=== PATIENT | male | born 1980 | race Two or more races ===

== ENCOUNTER 2024-02-20 13:33 | Inpatient (IN) | payer OTHER ==
[~2024-02-20] VITALS: Ht 172.7 cm; Wt 73.7 kg
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
[2024-02-20] MEDS ORDERED: VANCOMYCIN PER PHARMACY 0 MG IV SCH (15:15)
[2024-02-20 15:31] LABS: Hemoglobin 14.1 g/dL (13.5-17.5); Platelet Count (auto) 316 10^3/uL (140-450)
[2024-02-20 15:32] LABS: Hematocrit 42.5 % (41.0-53.0); Mean Corpuscular Hemoglobin 29.1 pg (28.0-32.0); Mean Corpuscular Volume 88.2 fL (80.0-100.0); Red Blood Cells 4.82 10^6/uL (4.5-5.90); Red Cell Distribution Width 15.4 % (11.8-14.3)
[2024-02-20 15:40] LABS: Band Neutrophils % (manual) 0; Basophils % (manual) 0 (0.0-2.0); Blast Cells 0; Eosinophils % (manual) 0 (0-7); Metamyelocytes % 0; Myelocytes % 0; Promyelocytes % 0; Reactive Lymphocytes 0; White Blood Cell 33.2 10^3/uL (4.4-10.8)
[2024-02-20] MEDS: IOHEXOL 300 MG/ML 100ML BOTTLE IJ ONE (15:49)
[2024-02-20 15:57] LABS: Alanine Aminotransferase 156 U/L (7-40); Albumin 3.3 g/dL (3.2-4.8); Alkaline Phosphatase 206 U/L (46-116); Anion Gap 10 (5-15); Aspartate Aminotransferase 87 U/L (13-40); BUN/Creatinine Ratio 24.6 (10.0-20.0); Blood Urea Nitrogen 69 mg/dL (9-23); Calcium 8.4 mg/dL (8.7-10.4); Carbon Dioxide 25 mmol/L (20-31); Chloride 101 mmol/L (98-107); Glucose 124 mg/dL (74-106); Potassium 4.2 mmol/L (3.5-5.1); Sodium 136 mmol/L (136-145)
[2024-02-20 15:58] LABS: Bilirubin, Total 0.6 mg/dL (0.2-1.0); Total Protein 6.3 g/dL (5.7-8.2)
[2024-02-20 16:06] LABS: CRP High Sensitivity > 20.00 mg/dL (<1.0)
[2024-02-20 16:44] LABS: Lymphocytes % (manual) 3 (10.0-50.0); Monocytes % (manual) 3 (0-12); Platelet Estimate Adequate
[2024-02-20 16:46] LABS: RBC Morphology Normal
[2024-02-20] MEDS: VANCOMYCIN 1GM/250ML KIT 200 ML IV ONE (16:47)
[2024-02-20] MEDS: SODIUM CHLORIDE 0.9% 1,000 ML IV ONE ×2 (16:47→22:13)
[2024-02-20] MEDS: PIPERACILLIN-TAZOB 3.375GM 100 ML IV ONE (16:47)
--- NOTE | 2024-02-20 17:18 | DVH ---
Exam: CT CT AB PEL WO CON-NO ORAL OR IV History: BUTTOCK WOUND Comparison Study: None TECHNIQUE: Multidetector CT of the abdomen and pelvis was performed from lung bases to pubic symphysi s. Imaging was performed without IV contrast. Axial, coronal, and sagittal multiplanar reformats were obtained from the axial data set by the technologist. RADIATION DOSE: DLP 616.78 mGy.cm; CTDI vol 10.83 mGy. Findings: Limited evaluation given noncontrast technique. Lungs: The lung bases are clear. Heart: The visualized heart is unremarkable. No cardiomegaly or pericardial effusion. Liver: Unremarkable. Gallbladder: Unremarkable. Spleen: Unremarkable Pancreas: Unremarkable Adrenals: Unremarkable Kidneys: Unremarkable GI tract: Post surgical changes of the bowel. : Unremarkable. Vasculature: Unremarkable Lymphadenopathy: Absent Peritoneum: No ascites Musculoskeletal: Marked degenerative changes and heterotopic ossification of the right hip. Soft tissues: Two fluid collections in the right gluteal region, are incompletely evaluated given non contrast technique, measuring 8.1 x 4.5 cm and 6.0 x 2.6 cm. No evidence of subcutaneous emphysema. S acral decubitus ulcer. Impression: 1. Limited evaluation given noncontrast technique. 2. No acute abdominopelvic abnormalities. 3. Two fluid collections in the right gluteal region without emphysema. 4. Sacral decubitus ulcer.
[2024-02-20 17:32] VITALS: PULSE 125; RESP 19; O2SAT 100
[2024-02-20 18:34] LABS: Erythrocyte Sedimentation Rate 62 mm/hr (0-20)
[2024-02-20 19:27] VITALS: PULSE 109; RESP 17; O2SAT 99
[2024-02-20] MEDS ORDERED: NITROGLYCERIN 0.4 MG SL TAB SL PRN (21:45)
[2024-02-20] MEDS ORDERED: DOCUSATE SOD 100 MG CAP PO PRN (21:45)
[2024-02-20] MEDS ORDERED: MORPHINE SULFATE INJ 2 MG/ml SYRG IV PRN ×2 (21:45)
[2024-02-20] MEDS ORDERED: ONDANSETRON HCL 4 MG/2 ML VIAL IV PRN (21:45)
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
[2024-02-20] MEDS: ASCORBIC ACID 500 MG TAB PO SCH (22:30)
[2024-02-20] MEDS: PIPERACILLIN-TAZOB 3.375GM 100 ML IV SCH (22:30)
[2024-02-20] MEDS: SODIUM CHLORIDE 0.9% 1,000 ML IV SCH (23:00)
[2024-02-21 04:50] LABS: Hematocrit 32.6 % (41.0-53.0); Hemoglobin 10.9 g/dL (13.5-17.5); Mean Corpuscular Hgb Conc. 33.4 g/dL (32.0-36.0); Mean Corpuscular Volume 86.8 fL (80.0-100.0); Platelet Count (auto) 311 10^3/uL (140-450); Red Blood Cells 3.76 10^6/uL (4.5-5.90); White Blood Cell 25.3 10^3/uL (4.4-10.8)
[2024-02-21 04:58] LABS: Band Neutrophils % (manual) 0; Basophils % (manual) 0 (0.0-2.0); Blast Cells 0; Metamyelocytes % 0; Myelocytes % 0; Promyelocytes % 0; Reactive Lymphocytes 0
[2024-02-21 05:10] LABS: Alanine Aminotransferase 106 U/L (7-40); Albumin 2.7 g/dL (3.2-4.8); Alkaline Phosphatase 170 U/L (46-116); Anion Gap 10 (5-15); Aspartate Aminotransferase 58 U/L (13-40); Bilirubin, Total 0.6 mg/dL (0.2-1.0); Calcium 7.9 mg/dL (8.7-10.4); Carbon Dioxide 23 mmol/L (20-31); Chloride 106 mmol/L (98-107); Glucose 139 mg/dL (74-106); Potassium 3.1 mmol/L (3.5-5.1); Sodium 139 mmol/L (136-145); Total Protein 5.4 g/dL (5.7-8.2)
[2024-02-21 05:21] LABS: Blood Urea Nitrogen 48 mg/dL (9-23)
[2024-02-21 07:22] LABS: Eosinophils % (manual) 1 (0-7); Lymphocytes % (manual) 3 (10.0-50.0); Monocytes % (manual) 2 (0-12); Platelet Estimate Adequate
[2024-02-21 07:45] VITALS: RESP 16; O2SAT 99
[2024-02-21] MEDS: POTASSIUM CHL 20 Meq TABLET PO ONE ×2 (08:57→13:19)
[2024-02-21 09:41] LABS: Magnesium 1.7 mg/dL (1.6-2.6)
[2024-02-21 09:42] LABS: Phosphorus 3.3 mg/dL (2.4-5.1)
--- NOTE | 2024-02-21 10:27 | DVH ---
CHEST RADIOGRAPH Indication: PVC Technique: Single frontal view of the chest was obtained Comparison: None FINDINGS: Lines and Tubes: None Lungs: No focal consolidation. Pleura: No effusion. No pneumothorax. Cardiomediastinal contours: Unremarkable Bones: Chronic right-sided rib fractures. IMPRESSION: No acute cardiopulmonary disease.
--- NOTE | 2024-02-21 11:00 | DVHPN2 ---
Progress Note - Dictate Date Seen: Feb 21, 2024 Medical Necessity Reason Pt with a Central, PICC or Fol: No vital signs Vital Sign Date Time Temp Pulse Resp B/P (MAP) Pulse Ox O2 Delivery O2 Flow Rate FiO2 02/21/24 09:00 105 16 111/54 (73) 97 02/21/24 07:45 Room Air* 0 21 02/21/24 07:00 100.0 100.0 Total Intake and Output 02/20/24 02/20/24 02/21/24 15:00 23:00 07:00 Intake Total 1680 ml 1015 ml Output Total 1010 ml Balance 1680 ml 5 ml medications Current Medications Medications Dose Ordered Sig/Jacquelyn Route Start Time Stop Time Status Last Admin Dose Admin Vancomycin HCl 0 ml @ 0 mls/hr UD IV 02/20/24 15:15 Sodium Chloride 1,000 ml @ 120 mls/hr Q8H20M IV 02/20/24 21:45 02/21/24 06:05 120 MLS/HR Acetaminophen 325 mg Q4HP PRN PO 02/20/24 21:45 Acetaminophen/ Hydrocodone Bitart 1 tab Q4HP PRN PO 02/20/24 21:45 Ondansetron HCl 4 mg Q4HP PRN IV 02/20/24 21:45 Docusate Sodium 100 mg BIDPRN PRN PO 02/20/24 21:45 Zinc Sulfate 220 mg DAILY PO 02/21/24 10:00 Ascorbic Acid 500 mg BID PO 02/20/24 22:00 02/20/24 22:30 500 MG Multivitamins 1 tab DAILY PO 02/21/24 10:00 Morphine Sulfate 2 mg Q4HPRN PRN IV 02/20/24 21:45 Nitroglycerin 0.4 mg Q5MINP PRN SL 02/20/24 21:45 Morphine Sulfate 2 mg Q30M PRN IV 02/20/24 21:45 Piperacillin Sod/ Tazobactam Sod 100 ml @ 25 mls/hr Q12HR IV 02/20/24 22:00 02/20/24 22:30 25 MLS/HR objective General Appearance: alert, no distress HEENT: EOMI, PERRLA, normal external inspect of ears, no icterus, no nasal drainage Neck: no carotid bruit, no jugular venous distention (JVD), no lymphadenopathy Chest: normal thorax Respiratory: clear to auscultation, normal air movement Cardiovascular: regular rate and rhythm, no diastolic murmur, no jugular venous distention (JVD), no rub, no systolic murmur Abdominal: soft, no hepatomegaly, no mass, no splenomegaly, no tenderness Genitourinary: grossly normal external Musculoskeletal: no joint tenderness, no swelling Extremities: normal pulses, no calf tenderness, no clubbing, no cyanosis, no edema Skin: no bruising, no jaundice, no rash Neurological: alert, No focal deficit laboratory and microbiology Laboratory Tests 02/21/24 04:10 Test 02/21/24 04:10 Range/Units Serum Glucose 139 H 74-106 mg/dL Problem List 1. Sepsis IV abx, ID Consult 2. Acute renal Failure Nephrology Consult, Monitoring 3. Elevated Liver Enzyme medication, monitoring 4. Decubitis ulcer to Coccyx Medication, monitoring 5. Homelessness [employer]ation [employer] Integrator Consult Assessment/Plan Subjective: Patient is awake and alert but lethargic today. Objective: Patient was recently medicated for pain. Patient was found to be septic and paraplegic with a foul-smelling decubitus ulcer. Plan: Surgical consult for possible debridement. Wound care consult, ID consult, and continue IV antibiotics. Plan discussed with: Patient, Other RAY MCGOVERN NP Feb 21, 2024 11:00
[2024-02-21] MEDS: ZINC SULFATE 220mg CAP or TAB PO SCH (11:08)
[2024-02-21] MEDS: MULTIPLE VITAMIN TAB PO SCH (11:08)
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
--- NOTE | 2024-02-21 13:24 | DVHSR ---
APPROVED REPORT EXAM: Two-dimensional and M-mode echocardiogram with Doppler and color Doppler. Blood Pressure: 111/54 mmHg INDICATION Chronic meth use, CHF? RISK FACTORS Height: 68, Weight: 178 DIMENSIONS LVDd4.5 (3.8-5.7cm)LA (2D)4.5 (1.9-4.0cm)Aortic Root3.8 (2.0-3.7cm) LVDs2.9 (2.5-4.0cm)LA (MM) (1.9-4.0cm)Aortic Cusp Exc1.9 (1.5-2.0cm) EF (%) 65.0 (55-70%)Rt. Atrium3.2 (1.9-4.0cm)Asc. Aorta cm IVSd1.0 (0.7-1.1cm)RV (D) (1.8-2.4cm) PWd1.1 (0.7-1.1cm) Mitral Valve MitralMitral Stenosis E wave0.68m/sMV Mean GR.mmHg A wave0.70m/sMV Peak GR.mmHg E/A ratio1.02D MVAcm2 DECEL [id number] 1/2 [id number] IVRTmsDop MVA4.61cm2 Aortic Valve Aortic ValveAortic Stenosis V11.41m/Bharathi Mean GR.5mmHg V21.57m/Bharathi Peak GR.10mmHg LVOT Diameter2.2 (1.8-2.4cm)Doppler AVA3.41cm2 Pulmonic Valve V21.40m/s Tricuspid Valve TR Velocity1.86m/s [id number] Other Information Technically limited study due to body habitus. Patient was laying flat on his back during exam. Conclusion Normal left ventricular size and dimension. Normal left ventricular systolic function estimated ejec tion fraction 55%. There is a grade 1 diastolic dysfunction. Normal right ventricular size and dimension. Normal right ventricular systolic function. Normal biatrial size and dimension. Normal aortic valve structure and function. Normal mitral valve structure function. Normal tricuspid valve structure and function. The pulmonary valve is grossly normal. No pericardial effusion.
[2024-02-21 13:42] LABS: Urine Bacteria None Seen /hpf (None Seen)
[2024-02-21 13:55] LABS: Urine Blood 1+ /uL (Negative); Urine Clarity Clear (Clear); Urine Color Light-Yellow (Yellow); Urine Protein, UAD Negative (Negative); Urine Specific Gravity 1.009 (1.001-1.035); Urine Urobilinogen 2 mg/dL (Negative); Urine WBC 3 /hpf (0 - 3)
[2024-02-21 14:03] LABS: Protein, Urine 30.6 mg/dL (1-14)
[2024-02-21 14:04] LABS: Amphetamine Screen, Urine Neg (NEGATIVE)
[2024-02-21 14:05] LABS: Barbiturate Scree,Urine Neg (NEGATIVE); Benzodiazephine Screen, Urine Neg (NEGATIVE); Cannabinoid Screen, Urine Neg (NEGATIVE); Cocaine Screen, Urine Neg (NEGATIVE); Opiate Scree,Urine Neg (NEGATIVE); Phencyclidine Screen, Urine Neg (NEGATIVE)
[2024-02-21 14:06] LABS: Creatinine, Urine 34.88 mg/dL (30.0-125.0)
[2024-02-21] MEDS: VANCOMYCIN 750mg/150ml 150 ML IV ONE (14:53)
[2024-02-21 18:51] VITALS: BP 110/64; PULSE 110; RESP 18; RESP 19; TEMP 98.3; O2SAT 97; O2SAT 98
[2024-02-21 19:01] VITALS: BP 110/64; PULSE 97; RESP 18; TEMP 98.3; O2SAT 95
[2024-02-21 20:00] VITALS: PULSE 104; PULSE 111; RESP 19; O2SAT 98
[2024-02-21 21:00] VITALS: BP 115/70; PULSE 104; RESP 19; TEMP 97.8; O2SAT 98
[2024-02-21] MEDS: SODIUM CHLORIDE 0.9% 1,000 ML IV SCH (21:26)
[2024-02-21] MEDS: HYDROcodone-ACET 5/325MG TAB PO PRN (21:27)
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
[2024-02-22] VITALS (10 sets, daily range): BP systolic 86–116; BP diastolic 47–68; PULSE 69–118; RESP 14–21; TEMP 97.7–98.7; O2SAT 90–99
[2024-02-22 05:38] LABS: Chloride 110 mmol/L (98-107); Potassium 4.3 mmol/L (3.5-5.1); Sodium 141 mmol/L (136-145)
[2024-02-22 05:39] LABS: Anion Gap 8 (5-15); Calcium 7.9 mg/dL (8.7-10.4); Carbon Dioxide 23 mmol/L (20-31)
[2024-02-22 05:44] LABS: BUN/Creatinine Ratio 24.3 (10.0-20.0); Blood Urea Nitrogen 43 mg/dL (9-23); Glucose 113 mg/dL (74-106)
[2024-02-22 09:02] LABS: INR 1.13 (0.9-1.15); Prothrombin Time 11.9 sec (9.3-11.8)
--- NOTE | 2024-02-22 10:20 | DVHPN2 ---
Progress Note Date Seen: Feb 22, 2024 Resident Creating Document: ELUA ARRIOLA RESIDENT Medical Necessity Reason Pt with a Central, PICC or Fol: No Subjective Review of Systems History of Present Illness Patient is 63-year-old male with past medical history of hypertension, diabetes mellitus type 2, hyperlipidemia, CHF, CKD, GERD who brought to the hospital for generalized weakness and worsening shortness of breath for few days before hospitalization. Patient is poor historian and major with the medical information was obtained from EMR. At the time of evaluation patient did not have any complaints except mild shortness of breath, nonproductive cough. Nephrology consultation was done for evaluation of CKD. Over the course of hospitalization patient was treated with IV Lasix, IV antibiotic, oxygen as needed and vasopressors. No other complaints at this point. Past Medical History hypertension, diabetes mellitus type 2, hyperlipidemia, CHF, CKD, GERD Past Surgical History AICD implantation Patient seen and examined at bedside. Patient is feeling better, increased urine output. Plan for debridement per hospitalist team. No new complaint at this point. Objective vital signs Vital Sign Date Time Temp Pulse Resp B/P (MAP) Pulse Ox O2 Delivery O2 Flow Rate FiO2 02/22/24 09:00 97.9 101 20 97/60 (72) 98 97.9 02/22/24 07:43 Room Air* 0 21 Total Intake and Output 02/21/24 02/21/24 02/22/24 15:00 23:00 07:00 Intake Total 1300 ml Output Total 800 ml Balance 500 ml medications Current Medications Medications Dose Ordered Sig/Jacquelyn Route Start Time Stop Time Status Last Admin Dose Admin Vancomycin HCl 0 ml @ 0 mls/hr UD IV 02/20/24 15:15 Acetaminophen 325 mg Q4HP PRN PO 02/20/24 21:45 Acetaminophen/ Hydrocodone Bitart 1 tab Q4HP PRN PO 02/20/24 21:45 02/21/24 21:27 1 TAB Ondansetron HCl 4 mg Q4HP PRN IV 02/20/24 21:45 Docusate Sodium 100 mg BIDPRN PRN PO 02/20/24 21:45 Zinc Sulfate 220 mg DAILY PO 02/21/24 10:00 02/21/24 11:08 220 MG Ascorbic Acid 500 mg BID PO 02/20/24 22:00 02/21/24 21:26 500 MG Multivitamins 1 tab DAILY PO 02/21/24 10:00 02/21/24 11:08 1 TAB Morphine Sulfate 2 mg Q4HPRN PRN IV 02/20/24 21:45 Nitroglycerin 0.4 mg Q5MINP PRN SL 02/20/24 21:45 Morphine Sulfate 2 mg Q30M PRN IV 02/20/24 21:45 Piperacillin Sod/ Tazobactam Sod 100 ml @ 25 mls/hr Q12HR IV 02/20/24 22:00 02/22/24 09:14 25 MLS/HR Sodium Chloride 1,000 ml @ 100 mls/hr Q10H IV 02/21/24 19:00 02/21/24 21:26 100 MLS/HR Examination General Appearance: Cooperative. Not in acute distress. Head Exam: Normal inspection Neck Exam: Normal inspection. Non-tender. Normal alignment Pulmonary/Respiratory: Chest non-tender. Clear bilateral breath sounds Cardiovascular/Chest: Regular rate and rhythm. No murmurs. No JVD. Mild bilateral basal lung crackles. Peripheral Pulses: 2+ Radial (R). 2+ Radial (L). 2+ Pedal (R). 2+ Pedal (L) Abdominal Exam: Normal bowel sounds. Soft. Nontender. No hepatospenomegaly. No masses Ankle Exam: Negative ankle edema, bilateral lower extremity multiple diabetic ulcers. Lower extremities: 1 + lower extremity edema Neuro/Mental Status: A&O x4. Coherent laboratory and microbiology Laboratory Tests 02/22/24 04:57 02/21/24 04:10 Test 02/22/24 04:57 Range/Units Serum Glucose 113 H 74-106 mg/dL Microbiology Date/Time Source Procedure Growth Status 02/20/24 15:00 Blood Blood Culture - Preliminary NO GROWTH AFTER 24 HOURS OF INCUBATION. Resulted Problem List/Assessment/Plan Problem List/Assessment/Plan KARSON on CKD III- likely due to hemodynamic mediated in the setting of sepsis severe/hypotension Sepsis due to cellulitis Open wound of right buttock Gluteal abscess Decubital ulcer Hypokalemia Proteinuria Plan/recommendation -improving kidney function, creatinine trending down, improving GFR. Urine output 800 mL in last 24 hour. -continue fluid resuscitation with normal saline 100 mL/hour to maintain adequate perfusion pressure. -hemodynamics support, maintain blood pressure map greater than or equal to 65 mmHg -antibiotic as per primary care team. -avoid nephrotoxic drugs. -pending kidney ultrasound -maintain strict I&Os. -we will closely follow up. Addendum Patient seen and examined, plan discussed with resident. Agree with above, we will follow closely Plan discussed with: Patient, Other (RN) EULA ARRIOLA Feb 22, 2024 10:20 MARIA LOUIS MD Feb 22, 2024 14:42
--- NOTE | 2024-02-22 11:04 | DVH ---
INDICATION: brian TECHNIQUE: Multiple real-time sonographic images of the kidneys and bladder were obtained. COMPARISON: CT abdomen pelvis 02/20/2024 FINDINGS: RIGHT kidney measures 12.9 cm in length. Normal cortical thickness and echogenicity. No focal lesion s or stones are identified. No hydronephrosis. LEFT kidney measures 11.5 cm in length. Normal cortical thickness and echogenicity. No focal lesions or stones are identified. No hydronephrosis. No large intraluminal masses are seen in the bladder. Prevoid urinary bladder volume 228 cc. IMPRESSION: 1. Unremarkable examination. HS:Y
--- NOTE | 2024-02-22 11:20 | DVHPN2 ---
Progress Note - Dictate Date Seen: Feb 22, 2024 Medical Necessity Reason Pt with a Central, PICC or Fol: No vital signs Vital Sign Date Time Temp Pulse Resp B/P (MAP) Pulse Ox O2 Delivery O2 Flow Rate FiO2 02/22/24 09:00 97.9 101 20 97/60 (72) 98 97.9 02/22/24 07:43 Room Air* 0 21 Total Intake and Output 02/21/24 02/21/24 02/22/24 15:00 23:00 07:00 Intake Total 1300 ml Output Total 800 ml Balance 500 ml medications Current Medications Medications Dose Ordered Sig/Jacquelyn Route Start Time Stop Time Status Last Admin Dose Admin Vancomycin HCl 0 ml @ 0 mls/hr UD IV 02/20/24 15:15 Acetaminophen 325 mg Q4HP PRN PO 02/20/24 21:45 Acetaminophen/ Hydrocodone Bitart 1 tab Q4HP PRN PO 02/20/24 21:45 02/21/24 21:27 1 TAB Ondansetron HCl 4 mg Q4HP PRN IV 02/20/24 21:45 Docusate Sodium 100 mg BIDPRN PRN PO 02/20/24 21:45 Zinc Sulfate 220 mg DAILY PO 02/21/24 10:00 02/21/24 11:08 220 MG Ascorbic Acid 500 mg BID PO 02/20/24 22:00 02/21/24 21:26 500 MG Multivitamins 1 tab DAILY PO 02/21/24 10:00 02/21/24 11:08 1 TAB Morphine Sulfate 2 mg Q4HPRN PRN IV 02/20/24 21:45 Nitroglycerin 0.4 mg Q5MINP PRN SL 02/20/24 21:45 Morphine Sulfate 2 mg Q30M PRN IV 02/20/24 21:45 Piperacillin Sod/ Tazobactam Sod 100 ml @ 25 mls/hr Q12HR IV 02/20/24 22:00 02/22/24 09:14 25 MLS/HR Sodium Chloride 1,000 ml @ 100 mls/hr Q10H IV 02/21/24 19:00 02/21/24 21:26 100 MLS/HR objective General Appearance: alert, no distress HEENT: EOMI, PERRLA, normal external inspect of ears, no icterus, no nasal drainage Neck: no carotid bruit, no jugular venous distention (JVD), no lymphadenopathy Chest: normal thorax Respiratory: clear to auscultation, normal air movement Cardiovascular: regular rate and rhythm, no diastolic murmur, no jugular venous distention (JVD), no rub, no systolic murmur Abdominal: soft, no hepatomegaly, no mass, no splenomegaly, no tenderness Genitourinary: grossly normal external Musculoskeletal: no joint tenderness, no swelling Extremities: normal pulses, no calf tenderness, no clubbing, no cyanosis, no edema Skin: no bruising, no jaundice, no rash Neurological: alert, No focal deficit laboratory and microbiology Laboratory Tests 02/22/24 04:57 02/21/24 04:10 Test 02/22/24 04:57 Range/Units Serum Glucose 113 H 74-106 mg/dL Problem List 1. Sepsis IV abx, ID Consult 2. Acute renal Failure Nephrology Consult, Monitoring 3. Elevated Liver Enzyme medication, monitoring 4. Decubitis ulcer to Coccyx Medication, monitoring 5. Homelessness Patient Access Coordinator Consult Assessment/Plan Subjective: Patient is awake and alert. Objective: Patient was admitted for sepsis and acute renal failure. Patient has a nonhealing wound to his coccyx and he is reportedly homeless. Patient was started on vancomycin and Zosyn. Cardiology was consulted for sepsis. Patients WBC count is 33 upon admission. Patient was seen by general surgery, he is tentatively scheduled today for debridement. Plan: Continue current treatment. Monitor daily labs. ID evaluation. Monitor renal function. Monitor SUE's. Plan for surgical debridement today. Plan discussed with: Patient, Other RAY MCGOVERN NP Feb 22, 2024 11:20
[2024-02-22] MEDS: PANTOPRAZOLE 40 MG TAB PO SCH (11:30)
[2024-02-22 11:44] LABS: Basophils # (auto) 0.1 10 ^3/uL (0-0.2); Basophils % (auto) 0.4 % (0.0-2.0); Eosinophils # (auto) 0.2 10 ^3/uL (0-0.8); Eosinophils % (auto) 1.1 % (0.0-7.0); Hematocrit 32.7 % (41.0-53.0); Hemoglobin 10.4 g/dL (13.5-17.5); Lymphocytes # (auto) 0.9 10 ^3/uL (0.4-5.4); Lymphocytes % (auto) 5.8 % (10.0-50.0); Mean Corpuscular Hemoglobin 28.4 pg (28.0-32.0); Mean Corpuscular Hgb Conc. 31.8 g/dL (32.0-36.0); Mean Corpuscular Volume 89.5 fL (80.0-100.0); Monocytes # (auto) 0.9 10 ^3/uL (0-1.3); Monocytes % (auto) 5.8 % (0.0-12.0); Neutrophils # (auto) 13.5 10 ^3/uL (1.6-8.6); Neutrophils % (auto) 86.9 % (37.0-80.0); Platelet Count (auto) 345 10^3/uL (140-450); Red Blood Cells 3.65 10^6/uL (4.5-5.90); Red Cell Distribution Width 15.5 % (11.8-14.3); White Blood Cell 15.5 10^3/uL (4.4-10.8)
[2024-02-22] MEDS: ENOXAPARIN SOD 40 MG/0.4 ML SYRINGE SC SCH (11:45)
[2024-02-22] MEDS: VANCOMYCIN 1GM/250ML KIT 200 ML IV ONE (11:55)
[2024-02-22] MEDS ORDERED: ONDANSETRON HCL 4 MG/2 ML VIAL ONE (16:00)
[2024-02-22] MEDS ORDERED: SODIUM CHLORIDE LOCK 10 ML ONE (16:00)
[2024-02-22] MEDS ORDERED: PROPOFOL 10 MG/ML 20 ML IV ONE (16:00)
[2024-02-22] MEDS ORDERED: LIDOCAINE 1% INJ PF 5ML AMP ONE (16:00)
[2024-02-22] MEDS ORDERED: fentaNYL CITRATE 100 MCG/2 ML VL ONE (16:00)
[2024-02-22] MEDS ORDERED: MIDAZOLAM HCL 2MG/2ML 2ml VIAL (1mg/ml) ONE (16:00)
[2024-02-22] MEDS ORDERED: MEPERIDINE HCL (50 MG/ML) 1 ML VIAL ONE (16:00)
[2024-02-22] MEDS ORDERED: MORPHINE SULFATE INJ 2 MG/ml SYRG IV PRN ×2 (16:15→17:45)
[2024-02-22] MEDS ORDERED: fentaNYL CITRATE 100 MCG/2 ML VL IV PRN (16:15)
[2024-02-22] MEDS ORDERED: HYDROmorphone HCL 2 MG/ML VL/or syr IV PRN ×2 (16:15)
--- NOTE | 2024-02-22 17:59 | DVHOP ---
DATE OF SURGERY: 02/22/2024 PREOPERATIVE DIAGNOSIS: Left buttock/hip abscess. POSTOPERATIVE DIAGNOSIS: Left buttock/hip abscess. PROCEDURE: Incision and drainage of left buttock/pelvic abscess and pulse lavage irrigation. SURGEON: Iam Feliciano MD MANAGER IN TRAINING: None. ANESTHESIOLOGIST: Dr. Frey. ANESTHESIA: General by means of endotracheal intubation. INTRAOPERATIVE FINDINGS: A large abscess in the right gluteal region involving the left hip region. ESTIMATED BLOOD LOSS: Approximately 100 mL. INTRAVENOUS FLUIDS: Per anesthesia charting. URINE OUTPUT: Not recorded given Velazquez catheter was not inserted. DRAINS: Quarter inch Matthew drains x4. SPECIMEN: Culture. IMPLANTS: None. COMPLICATIONS: None. DISPOSITION: Procedure well tolerated and transferred to recovery room in stable condition. INDICATIONS FOR PROCEDURE: The patient is a 43-year-old male who came to the Emergency Department complaining of right hip/buttock pain. Workup revealed findings consistent with an abscess. Based on the above-mentioned information, he was recommended to undergo wound exploration with associated possible incision and drainage of abscess versus debridement. The procedure, risks and benefits were explained in a detailed and extensive fashion. All of his questions were answered. He understood and agreed to proceed. DESCRIPTION OF PROCEDURE: The patient was met in the preoperative holding area where the right hip was marked indicating the correct site of surgery. He was then transferred to the operating room where he was placed in the dorsal decubitus position on the operating table. Once adequate anesthesia was achieved, he was placed in the left lateral decubitus position, paying careful attention on providing adequate positioning as well as padding to prevent any potential injuries. The area was widely prepped and draped in the usual sterile fashion. My attention was directed towards the wound in the left gluteal region, which was cannulated with my index finger, identifying a deep pocket of pus tracking posteriorly as well as inferiorly. a culture specimen was obtained. Local anesthesia was injected in the area of counter incision. Approximately 6 cm counter incision was made posteriorly. The dermis and subcutaneous tissue were incised with electrocautery obtaining access to the abscess cavity. At this time, a pulse lavage doorshaker was utilized to irrigate/debride the abscess cavity using 3 liters of sterile saline solution. Once this was completed, a counter incision was created posteriorly as well as caudally and 4 [place] drains were placed in the subcutaneous space fixating it to the skin by means of 2-0 silk sutures. The counter incision had been closed with the same sutures, leaving [address] as well in order to provide adequate drainage. The wound was washed and dried. Sterile dressings were applied. The patient tolerated well procedure. There were no complications. He was successfully extubated in the operating room and transferred to recovery room in stable condition. MD MATTHEW Ervin/JEROME TID: [id number] RECEIPT: [id number] MTDD
--- NOTE | 2024-02-22 18:23 | DVHINCON2 ---
DATE OF CONSULTATION: 02/22/2024 REQUESTING PROVIDER: Vianney Pope NP CONSULTING PHYSICIAN: Iam Feliciano MD REASON FOR CONSULTATION: Right buttock abscess. HISTORY OF PRESENT ILLNESS: The patient is a 43-year-old male who came to the Emergency Department complaining of right hip pain with a wound in the medial aspect of the upper right buttock. Reported drainage. He admits having previous surgical intervention at [facility] [place]. Does not recall what was done. He is a very poor historian. Denies fevers, chills, nausea, vomiting, hemoptysis, hematemesis, bilious emesis, chest pain, shortness of breath, unintentional weight loss, night sweats, melena or hematochezia. PAST MEDICAL HISTORY: Denies. The patient does not follow regularly with a physician. PAST SURGICAL HISTORY: Does not know any surgical interventions that he may have had done. Denied any abdominal surgeries. He admitted that he had surgery in the right buttock region approximately a year ago at [facility] [place] but does not know what was done. MEDICATIONS: Denies. ALLERGIES: No known drug allergies. SOCIAL HISTORY: Denied smoking cigarettes, alcohol use, drug use, marijuana use or vaping. Upon further questioning and inquiry, he admitted that he smokes methamphetamines. He does not use IV drugs. FAMILY HISTORY: Noncontributory. REVIEW OF SYSTEMS: NEURO: Negative. PSYCHIATRIC: Negative. ENDOCRINE: Negative. ENT: Negative. CARDIOVASCULAR: Negative. PULMONARY: Negative. GASTROINTESTINAL: Negative. GENITOURINARY: Negative. HEME/INFECTIOUS DISEASE: Negative. MUSCULOSKELETAL: As above. SKIN: As above. PHYSICAL EXAMINATION: GENERAL: He is lying comfortably in bed. He is calm, pleasant and in no distress. VITAL SIGNS: He is afebrile with stable vital signs with exception of tachycardia and borderline blood pressure. NEUROLOGIC: Grossly intact, alert, awake, oriented x3. HEAD, EYES, EARS, NOSE, AND THROAT: Normocephalic. Pupils equally round. Extraocular muscles intact. Trachea is midline. HEART: Tachycardic and borderline hypotensive with systolic blood pressure in 90s with diastolic blood pressures in the 50s. LUNGS: Effortless breathing. Normal oxygen saturation and respiratory rate. ABDOMEN: Soft, nondistended, nontender. No palpable masses, hernias or visceromegaly. EXTREMITIES: No edema or tenderness. SKIN: The patient exhibits a large scar in the right buttock region. There appears to have undergone a rotational gluteal reconstruction, gluteal muscle flap reconstruction. There is a medial open wound and superficial dermal excoriation of the right hip. The area is tender. There is no erythema. LABORATORY DATA: Review of his labs demonstrated white blood cell count 25, hemoglobin 10.9, hematocrit 32, platelets 311. Sodium 141, potassium 4.3, chloride 110, CO2 23, BUN 43, creatinine 1.77. Toxicology screen is negative. CT scan of the abdomen and pelvis was reviewed with corresponding report. There is evidence of pelvic reconstruction in the bony aspect and a fluid collection involving the subcutaneous tissue overlying the right hip and possible distal region. In my opinion, there may be mild hepatosplenomegaly. ASSESSMENT: A 43-year-old male with a right gluteal fluid collection suspicious for an abscess. PLANS AND RECOMMENDATIONS: I had a lengthy discussion with the patient. I have recommended a wound exploration with possible incision and drainage of abscess and debridement as needed. The procedure, risks and benefits were explained in a detailed and extensive fashion. He was made aware of potential complications such as bleeding, infection, need for additional procedures, injury to blood vessels and/or nerves, chronic pain, numbness of the skin, undesirable cosmetic results, blood clots in leg/lungs, heart attack and stroke and/or . All questions were answered. He understood and agreed to proceed. Thank you Mrs. Pope for allowing me to participate in the care of your patient. I will follow him with you. MD MATTHEW Ervin/JEROME TID: [id number] RECEIPT: [id number]
[2024-02-22] MEDS ORDERED: ENOXAPARIN SOD 30 MG/0.3 ML SYRINGE SC SCH (22:00)
[2024-02-22] MEDS: HYDROcodone-ACET 10/325MG TAB PO PRN (22:49)
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
[2024-02-23] VITALS (9 sets, daily range): BP systolic 77–116; BP diastolic 44–68; PULSE 88–101; RESP 18–20; TEMP 97–98; O2SAT 94–100
[2024-02-23 05:45] LABS: Basophils # (auto) 0 10 ^3/uL (0-0.2); Basophils % (auto) 0.4 % (0.0-2.0); Eosinophils # (auto) 0.2 10 ^3/uL (0-0.8); Eosinophils % (auto) 2.5 % (0.0-7.0); Hematocrit 30.5 % (41.0-53.0); Hemoglobin 10.2 g/dL (13.5-17.5); Lymphocytes # (auto) 0.9 10 ^3/uL (0.4-5.4); Lymphocytes % (auto) 9.6 % (10.0-50.0); Mean Corpuscular Hemoglobin 29.7 pg (28.0-32.0); Mean Corpuscular Hgb Conc. 33.4 g/dL (32.0-36.0); Mean Corpuscular Volume 89.1 fL (80.0-100.0); Monocytes # (auto) 0.7 10 ^3/uL (0-1.3); Monocytes % (auto) 7.2 % (0.0-12.0); Neutrophils # (auto) 7.5 10 ^3/uL (1.6-8.6); Neutrophils % (auto) 80.3 % (37.0-80.0); Nucleated Red Blood Cells % 0.1 %; Platelet Count (auto) 387 10^3/uL (140-450); Red Blood Cells 3.43 10^6/uL (4.5-5.90); Red Cell Distribution Width 15.4 % (11.8-14.3); White Blood Cell 9.3 10^3/uL (4.4-10.8)
[2024-02-23 06:08] LABS: Alanine Aminotransferase 64 U/L (7-40); Albumin 2.9 g/dL (3.2-4.8); Alkaline Phosphatase 130 U/L (46-116); Anion Gap 6 (5-15); Aspartate Aminotransferase 34 U/L (13-40); BUN/Creatinine Ratio 19.3 (10.0-20.0); Bilirubin, Total 0.3 mg/dL (0.2-1.0); Calcium 8.1 mg/dL (8.7-10.4); Carbon Dioxide 25 mmol/L (20-31); Chloride 109 mmol/L (98-107); Glucose 113 mg/dL (74-106); Magnesium 1.7 mg/dL (1.6-2.6); Potassium 3.8 mmol/L (3.5-5.1); Sodium 140 mmol/L (136-145); Total Protein 5.8 g/dL (5.7-8.2)
[2024-02-23 06:22] LABS: Blood Urea Nitrogen 31 mg/dL (9-23)
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
--- NOTE | 2024-02-23 08:00 | DVHPN2 ---
Progress Note Date Seen: Feb 23, 2024 Has the PT tested + for MRSA If YES, has PT been informed?: No Medical Necessity Reason Pt with a Central, PICC or Fol: No Subjective Review of Systems The patient was seen earlier this morning. He feels better. Denies much pain. Objective vital signs Vital Sign Date Time Temp Pulse Resp B/P (MAP) Pulse Ox O2 Delivery O2 Flow Rate FiO2 02/23/24 05:00 97.9 88 18 77/44 (55) 94 97.9 02/22/24 20:00 Room Air* 0 21 Total Intake and Output 02/22/24 02/22/24 02/23/24 15:00 23:00 07:00 Intake Total 0 ml 1200 ml Output Total 900 ml 900 ml 1000 ml Balance -900 ml -900 ml 200 ml medications Current Medications Medications Dose Ordered Sig/Jacquelyn Route Start Time Stop Time Status Last Admin Dose Admin Vancomycin HCl 0 ml @ 0 mls/hr UD IV 02/20/24 15:15 Acetaminophen 325 mg Q4HP PRN PO 02/20/24 21:45 Acetaminophen/ Hydrocodone Bitart 1 tab Q4HP PRN PO 02/20/24 21:45 02/21/24 21:27 1 TAB Ondansetron HCl 4 mg Q4HP PRN IV 02/20/24 21:45 Docusate Sodium 100 mg BIDPRN PRN PO 02/20/24 21:45 Zinc Sulfate 220 mg DAILY PO 02/21/24 10:00 02/21/24 11:08 220 MG Ascorbic Acid 500 mg BID PO 02/20/24 22:00 02/22/24 22:22 500 MG Multivitamins 1 tab DAILY PO 02/21/24 10:00 02/21/24 11:08 1 TAB Nitroglycerin 0.4 mg Q5MINP PRN SL 02/20/24 21:45 Sodium Chloride 1,000 ml @ 100 mls/hr Q10H IV 02/21/24 19:00 02/23/24 01:03 100 MLS/HR Pantoprazole Sodium 40 mg DAILY@0600 PO 02/22/24 11:30 02/23/24 06:38 40 MG Enoxaparin Sodium 40 mg DAILY SC 02/22/24 11:45 Morphine Sulfate 2 mg Q2HP PRN IV 02/22/24 17:45 Acetaminophen/ Hydrocodone Bitart 1 tab Q4HP PRN PO 02/22/24 17:45 02/22/24 22:49 1 TAB Ceftriaxone Sodium/Dextrose 50 ml @ 50 mls/hr DAILY IV 02/23/24 10:00 Examination AFVSS. Dressing in place. Some sanguineous drainage laboratory and microbiology Laboratory Tests 02/23/24 05:10 Test 02/23/24 05:10 Range/Units Serum Glucose 113 H 74-106 mg/dL Microbiology Date/Time Source Procedure Growth Status 02/21/24 09:20 Buttock Gram Stain - Final Resulted 02/21/24 09:20 Buttock Wound Culture - Preliminary Resulted 02/20/24 15:00 Blood Blood Culture - Preliminary NO GROWTH AFTER 48 HOURS OF INCUBATION. Resulted Labs and/or images reviewed: Labs reviewed by me Problem List/Assessment/Plan Problems(with codes): (1) Abscess of right buttock Problem List/Assessment/Plan Continue IV Abx per ID. Resume diet. DVT and GI prophylaxis. May D/C from surgical standpoint when medically stable. F/U with me as outpt. May shower. Change dressings daily and as needed. Plan discussed with: Patient My Orders My Orders Orders - BHUPENDRA SCHROEDER MD Procedure Category Date Status Time Obtain Consent For: ORDERS 02/22/24 Transmitted 08:18 Obtain Consent For J LUIS 02/22/24 In Process Anesthesia 08:18 Morphine Sulfate PHA 02/22/24 In Process Injection 17:45 Hydrocodone-Acet PHA 02/22/24 In Process 10/325mg Tab (Lyons 17:45 Wound Culture W/ Gs CHAD 02/22/24 In Process 17:51 Cardiac DIET 02/22/24 Transmitted Diet-2gna,Lofat,Lochol Dinner BHUPENDRA SCHROEDER MD Feb 23, 2024 07:59
[2024-02-23] MEDS: cefTRIAXone 2GM/50ML D5W 50 ML IV SCH (08:52)
[2024-02-23] MEDS: VANCOMYCIN 1GM/250ML KIT 200 ML IV SCH (11:30)
--- NOTE | 2024-02-23 12:59 | DVHPN2 ---
Progress Note Date Seen: Feb 23, 2024 Resident Creating Document: EULA ARRIOLA RESIDENT Has the PT tested + for MRSA If YES, has PT been informed?: No Medical Necessity Reason Pt with a Central, PICC or Fol: No Subjective Review of Systems History of Present Illness Patient is 63-year-old male with past medical history of hypertension, diabetes mellitus type 2, hyperlipidemia, CHF, CKD, GERD who brought to the hospital for generalized weakness and worsening shortness of breath for few days before hospitalization. Patient is poor historian and major with the medical information was obtained from EMR. At the time of evaluation patient did not have any complaints except mild shortness of breath, nonproductive cough. Nephrology consultation was done for evaluation of CKD. Over the course of hospitalization patient was treated with IV Lasix, IV antibiotic, oxygen as needed and vasopressors. No other complaints at this point. Past Medical History hypertension, diabetes mellitus type 2, hyperlipidemia, CHF, CKD, GERD Past Surgical History AICD implantation Patient seen and examined at bedside. Patient is feeling better, increased urine output. No new complaint at this point. Objective vital signs Vital Sign Date Time Temp Pulse Resp B/P (MAP) Pulse Ox O2 Delivery O2 Flow Rate FiO2 02/23/24 08:54 97.5 96 18 92/56 (68) 97 97.5 02/23/24 08:10 Room Air* 0 21 Total Intake and Output 02/22/24 02/22/24 02/23/24 14:59 22:59 06:59 Intake Total 0 ml 1200 ml Output Total 900 ml 900 ml 1000 ml Balance -900 ml -900 ml 200 ml medications Current Medications Medications Dose Ordered Sig/Jacquelyn Route Start Time Stop Time Status Last Admin Dose Admin Vancomycin HCl 0 ml @ 0 mls/hr UD IV 02/20/24 15:15 Acetaminophen 325 mg Q4HP PRN PO 02/20/24 21:45 Acetaminophen/ Hydrocodone Bitart 1 tab Q4HP PRN PO 02/20/24 21:45 02/21/24 21:27 1 TAB Ondansetron HCl 4 mg Q4HP PRN IV 02/20/24 21:45 Docusate Sodium 100 mg BIDPRN PRN PO 02/20/24 21:45 Zinc Sulfate 220 mg DAILY PO 02/21/24 10:00 02/23/24 08:53 220 MG Ascorbic Acid 500 mg BID PO 02/20/24 22:00 02/23/24 08:53 500 MG Multivitamins 1 tab DAILY PO 02/21/24 10:00 02/23/24 08:53 1 TAB Nitroglycerin 0.4 mg Q5MINP PRN SL 02/20/24 21:45 Sodium Chloride 1,000 ml @ 100 mls/hr Q10H IV 02/21/24 19:00 02/23/24 01:03 100 MLS/HR Pantoprazole Sodium 40 mg DAILY@0600 PO 02/22/24 11:30 02/23/24 06:38 40 MG Enoxaparin Sodium 40 mg DAILY SC 02/22/24 11:45 02/23/24 08:53 40 MG Morphine Sulfate 2 mg Q2HP PRN IV 02/22/24 17:45 Acetaminophen/ Hydrocodone Bitart 1 tab Q4HP PRN PO 02/22/24 17:45 02/22/24 22:49 1 TAB Ceftriaxone Sodium/Dextrose 50 ml @ 50 mls/hr DAILY IV 02/23/24 10:00 02/23/24 08:52 50 MLS/HR Vancomycin HCl 200 ml @ 200 mls/hr Q24H IV 02/23/24 12:00 02/23/24 11:30 200 MLS/HR Examination General Appearance: Cooperative. Not in acute distress. Head Exam: Normal inspection Neck Exam: Normal inspection. Non-tender. Normal alignment Pulmonary/Respiratory: Chest non-tender. Clear bilateral breath sounds Cardiovascular/Chest: Regular rate and rhythm. No murmurs. No JVD. Mild bilateral basal lung crackles. Peripheral Pulses: 2+ Radial (R). 2+ Radial (L). 2+ Pedal (R). 2+ Pedal (L) Abdominal Exam: Normal bowel sounds. Soft. Nontender. No hepatospenomegaly. No masses Ankle Exam: Negative ankle edema, bilateral lower extremity multiple diabetic ulcers. Lower extremities: 1 + lower extremity edema Neuro/Mental Status: A&O x4. Coherent laboratory and microbiology Laboratory Tests 02/23/24 05:10 Test 02/23/24 05:10 Range/Units Serum Glucose 113 H 74-106 mg/dL Microbiology Date/Time Source Procedure Growth Status 02/21/24 09:20 Buttock Gram Stain - Final Resulted 02/21/24 09:20 Buttock Wound Culture - Preliminary Resulted 02/20/24 15:00 Blood Blood Culture - Preliminary NO GROWTH AFTER 48 HOURS OF INCUBATION. Resulted Problem List/Assessment/Plan Problem List/Assessment/Plan KARSON on CKD III- likely due to hemodynamic mediated in the setting of sepsis severe/hypotension Sepsis due to cellulitis Open wound of right buttock Gluteal abscess Decubital ulcer Hypokalemia Proteinuria Plan/recommendation -improving kidney function, creatinine trending down, improving GFR. Urine output 800 mL in last 24 hour. -continue fluid resuscitation with normal saline 100 mL/hour to maintain adequate perfusion pressure. -hemodynamics support, maintain blood pressure map greater than or equal to 65 mmHg -antibiotic as per primary care team. -avoid nephrotoxic drugs. -pending kidney ultrasound -maintain strict I&Os. -we will closely follow up. Plan discussed with: Patient, Other (RN) EULA ARRIOLA RESIDENT Feb 23, 2024 12:59
--- NOTE | 2024-02-23 13:49 | DVHPN2 ---
Progress Note Date Seen: Feb 23, 2024 Has the PT tested + for MRSA If YES, has PT been informed?: No Medical Necessity Reason Pt with a Central, PICC or Fol: No Subjective Review of Systems: CVS:Normal, RESPIRATORY:Normal, GI:Normal, NEURO:Normal Objective vital signs Vital Sign Date Time Temp Pulse Resp B/P (MAP) Pulse Ox O2 Delivery O2 Flow Rate FiO2 02/23/24 12:58 97.9 90 18 95/58 (70) 99 97.9 02/23/24 08:10 Room Air* 0 21 Total Intake and Output 02/22/24 02/22/24 02/23/24 15:00 23:00 07:00 Intake Total 0 ml 1200 ml Output Total 900 ml 900 ml 1000 ml Balance -900 ml -900 ml 200 ml medications Current Medications Medications Dose Ordered Sig/Jacquelyn Route Start Time Stop Time Status Last Admin Dose Admin Vancomycin HCl 0 ml @ 0 mls/hr UD IV 02/20/24 15:15 Acetaminophen 325 mg Q4HP PRN PO 02/20/24 21:45 Acetaminophen/ Hydrocodone Bitart 1 tab Q4HP PRN PO 02/20/24 21:45 02/21/24 21:27 1 TAB Ondansetron HCl 4 mg Q4HP PRN IV 02/20/24 21:45 Docusate Sodium 100 mg BIDPRN PRN PO 02/20/24 21:45 Zinc Sulfate 220 mg DAILY PO 02/21/24 10:00 02/23/24 08:53 220 MG Ascorbic Acid 500 mg BID PO 02/20/24 22:00 02/23/24 08:53 500 MG Multivitamins 1 tab DAILY PO 02/21/24 10:00 02/23/24 08:53 1 TAB Nitroglycerin 0.4 mg Q5MINP PRN SL 02/20/24 21:45 Sodium Chloride 1,000 ml @ 100 mls/hr Q10H IV 02/21/24 19:00 02/23/24 01:03 100 MLS/HR Pantoprazole Sodium 40 mg DAILY@0600 PO 02/22/24 11:30 02/23/24 06:38 40 MG Enoxaparin Sodium 40 mg DAILY SC 02/22/24 11:45 02/23/24 08:53 40 MG Morphine Sulfate 2 mg Q2HP PRN IV 02/22/24 17:45 Acetaminophen/ Hydrocodone Bitart 1 tab Q4HP PRN PO 02/22/24 17:45 02/22/24 22:49 1 TAB Ceftriaxone Sodium/Dextrose 50 ml @ 50 mls/hr DAILY IV 02/23/24 10:00 02/23/24 08:52 50 MLS/HR Vancomycin HCl 200 ml @ 200 mls/hr Q24H IV 02/23/24 12:00 02/23/24 11:30 200 MLS/HR Examination: GENERAL:Normal, LUNGS:Normal, CVS:Normal, ABDOMEN:Normal, SKIN:Normal, NEURO:Normal laboratory and microbiology Laboratory Tests 02/23/24 05:10 Test 02/23/24 05:10 Range/Units Serum Glucose 113 H 74-106 mg/dL Microbiology Date/Time Source Procedure Growth Status 02/21/24 09:20 Buttock Gram Stain - Final Resulted 02/21/24 09:20 Wound Culture - Preliminary Streptococcus Group A Resulted 02/20/24 15:00 Blood Blood Culture - Preliminary NO GROWTH AFTER 48 HOURS OF INCUBATION. Resulted Labs and/or images reviewed: Labs reviewed by me, Image(s) reviewed by me Problem List/Assessment/Plan Problem List/Assessment/Plan 1. Sepsis IV abx, ID Consult 2. Acute renal Failure Nephrology Consult, Monitoring 3. Elevated Liver Enzyme medication, monitoring 4. Decubitis ulcer to Coccyx Medication, monitoring 5. 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 Objective: Patient was admitted for sepsis and acute renal failure. Patient has a nonhealing wound to his coccyx and he is reportedly homeless. Per Infectious Disease we will continue Rocephin and vancomycin. Cardiology was consulted for sepsis. Patients WBC count is 33 upon admission. Patient was seen by general surgery, and is S/P debridement of decubitus ulcer, patient was cleared by general surgeon for discharge. Patient is still pending ID recommendations for discharge. Plan: Continue current treatment. Monitor daily labs. Awaiting Infectious Disease recommendations for discharge Monitor renal function. Monitor SUE's. Surgical consult appreciated Plan discussed with: Patient Date of Service: Feb 23, 2024 Billing Provider: AMAURY DEE MD Common Visit Codes: [id number] INP/OBS CARE (MOD) YELENA BRANDON [employer] Feb 23, 2024 13:49
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
[2024-02-24] VITALS (8 sets, daily range): BP systolic 96–110; BP diastolic 65–78; PULSE 87–111; RESP 16–20; TEMP 96.5–98.6; O2SAT 95–100
[2024-02-24 07:06] LABS: RPR Non Reactive (Non Reactive)
[2024-02-24 07:16] LABS: Basophils # (auto) 0 10 ^3/uL (0-0.2); Basophils % (auto) 0.5 % (0.0-2.0); Eosinophils # (auto) 0.2 10 ^3/uL (0-0.8); Eosinophils % (auto) 2.8 % (0.0-7.0); Hematocrit 31.1 % (41.0-53.0); Hemoglobin 10.3 g/dL (13.5-17.5); Lymphocytes # (auto) 0.9 10 ^3/uL (0.4-5.4); Lymphocytes % (auto) 11.3 % (10.0-50.0); Mean Corpuscular Hemoglobin 29.2 pg (28.0-32.0); Mean Corpuscular Volume 88.4 fL (80.0-100.0); Monocytes # (auto) 0.6 10 ^3/uL (0-1.3); Monocytes % (auto) 8.3 % (0.0-12.0); Neutrophils % (auto) 77.1 % (37.0-80.0); Platelet Count (auto) 421 10^3/uL (140-450); Red Blood Cells 3.52 10^6/uL (4.5-5.90); Red Cell Distribution Width 15.2 % (11.8-14.3); White Blood Cell 7.8 10^3/uL (4.4-10.8)
[2024-02-24 07:20] LABS: Alanine Aminotransferase 49 U/L (7-40); Albumin 2.9 g/dL (3.2-4.8); Alkaline Phosphatase 98 U/L (46-116); Anion Gap 8 (5-15); Aspartate Aminotransferase 26 U/L (13-40); BUN/Creatinine Ratio 19.2 (10.0-20.0); Bilirubin, Total 0.3 mg/dL (0.2-1.0); Blood Urea Nitrogen 24 mg/dL (9-23); Calcium 8.4 mg/dL (8.7-10.4); Carbon Dioxide 24 mmol/L (20-31); Chloride 110 mmol/L (98-107); Glucose 100 mg/dL (74-106); Potassium 4.2 mmol/L (3.5-5.1); Sodium 142 mmol/L (136-145); Total Protein 5.8 g/dL (5.7-8.2)
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
--- NOTE | 2024-02-24 13:30 | DVHPN2 ---
Progress Note - Dictate Date Seen: Feb 24, 2024 Has the PT tested + for MRSA If YES, has PT been informed?: No Medical Necessity Reason Pt with a Central, PICC or Fol: No Subjective Awake denies shortness of breath vital signs Vital Sign Date Time Temp Pulse Resp B/P (MAP) Pulse Ox O2 Delivery O2 Flow Rate FiO2 02/24/24 12:51 97.7 90 18 96/68 (77) 99 97.7 02/23/24 20:00 Room Air* 0 21 Total Intake and Output 02/23/24 02/23/24 02/24/24 15:00 23:00 07:00 Intake Total 250 ml 1200 ml 2000 ml Output Total 1050 ml 4600 ml Balance 250 ml 150 ml -2600 ml medications Current Medications Medications Dose Ordered Sig/Jacquelyn Route Start Time Stop Time Status Last Admin Dose Admin Vancomycin HCl 0 ml @ 0 mls/hr UD IV 02/20/24 15:15 Acetaminophen 325 mg Q4HP PRN PO 02/20/24 21:45 Acetaminophen/ Hydrocodone Bitart 1 tab Q4HP PRN PO 02/20/24 21:45 02/21/24 21:27 1 TAB Ondansetron HCl 4 mg Q4HP PRN IV 02/20/24 21:45 Docusate Sodium 100 mg BIDPRN PRN PO 02/20/24 21:45 Zinc Sulfate 220 mg DAILY PO 02/21/24 10:00 02/24/24 10:06 220 MG Ascorbic Acid 500 mg BID PO 02/20/24 22:00 02/24/24 10:06 500 MG Multivitamins 1 tab DAILY PO 02/21/24 10:00 02/24/24 10:06 1 TAB Nitroglycerin 0.4 mg Q5MINP PRN SL 02/20/24 21:45 Sodium Chloride 1,000 ml @ 100 mls/hr Q10H IV 02/21/24 19:00 02/24/24 06:03 100 MLS/HR Pantoprazole Sodium 40 mg DAILY@0600 PO 02/22/24 11:30 02/24/24 05:57 40 MG Enoxaparin Sodium 40 mg DAILY SC 02/22/24 11:45 02/23/24 08:53 40 MG Morphine Sulfate 2 mg Q2HP PRN IV 02/22/24 17:45 Acetaminophen/ Hydrocodone Bitart 1 tab Q4HP PRN PO 02/22/24 17:45 02/22/24 22:49 1 TAB Ceftriaxone Sodium/Dextrose 50 ml @ 50 mls/hr DAILY IV 02/23/24 10:00 02/24/24 10:07 50 MLS/HR Vancomycin HCl 200 ml @ 200 mls/hr Q24H IV 02/23/24 12:00 02/23/24 11:30 200 MLS/HR objective Gen: nad heent: nc/at, mmm lungs: cta anteriorly cvs: no rub abd: soft, bowel sounds audible ext: no edema skin: no rash neuro: alert and oriented laboratory and microbiology Laboratory Tests 02/24/24 05:56 Test 02/24/24 05:56 Range/Units Serum Glucose 100 74-106 mg/dL Assessment/Plan Problem List/Assessment/Plan KARSON on CKD III- likely due to hemodynamic mediated in the setting of sepsis severe/hypotension Sepsis due to cellulitis Open wound of right buttock Gluteal abscess Decubital ulcer Hypokalemia Proteinuria -clinically stable from Nephrology perspective -no new recommendations, I will sign off his case. -please reconsult as needed. Thank you. Plan discussed with: Other MACARENA PAUL MD Feb 24, 2024 13:30
--- NOTE | 2024-02-24 14:43 | DVHPN2 ---
Progress Note Date Seen: Feb 24, 2024 Has the PT tested + for MRSA If YES, has PT been informed?: No Medical Necessity Reason Pt with a Central, PICC or Fol: No Subjective Patient reports: No new complaints Objective vital signs Vital Sign Date Time Temp Pulse Resp B/P (MAP) Pulse Ox O2 Delivery O2 Flow Rate FiO2 02/24/24 12:51 97.7 90 18 96/68 (77) 99 97.7 02/23/24 20:00 Room Air* 0 21 Total Intake and Output 02/23/24 02/23/24 02/24/24 15:00 23:00 07:00 Intake Total 250 ml 1200 ml 2000 ml Output Total 1050 ml 4600 ml Balance 250 ml 150 ml -2600 ml medications Current Medications Medications Dose Ordered Sig/Jacquelyn Route Start Time Stop Time Status Last Admin Dose Admin Vancomycin HCl 0 ml @ 0 mls/hr UD IV 02/20/24 15:15 Acetaminophen 325 mg Q4HP PRN PO 02/20/24 21:45 Acetaminophen/ Hydrocodone Bitart 1 tab Q4HP PRN PO 02/20/24 21:45 02/21/24 21:27 1 TAB Ondansetron HCl 4 mg Q4HP PRN IV 02/20/24 21:45 Docusate Sodium 100 mg BIDPRN PRN PO 02/20/24 21:45 Zinc Sulfate 220 mg DAILY PO 02/21/24 10:00 02/24/24 10:06 220 MG Ascorbic Acid 500 mg BID PO 02/20/24 22:00 02/24/24 10:06 500 MG Multivitamins 1 tab DAILY PO 02/21/24 10:00 02/24/24 10:06 1 TAB Nitroglycerin 0.4 mg Q5MINP PRN SL 02/20/24 21:45 Sodium Chloride 1,000 ml @ 100 mls/hr Q10H IV 02/21/24 19:00 02/24/24 06:03 100 MLS/HR Pantoprazole Sodium 40 mg DAILY@0600 PO 02/22/24 11:30 02/24/24 05:57 40 MG Enoxaparin Sodium 40 mg DAILY SC 02/22/24 11:45 02/23/24 08:53 40 MG Morphine Sulfate 2 mg Q2HP PRN IV 02/22/24 17:45 Acetaminophen/ Hydrocodone Bitart 1 tab Q4HP PRN PO 02/22/24 17:45 02/22/24 22:49 1 TAB Ceftriaxone Sodium/Dextrose 50 ml @ 50 mls/hr DAILY IV 02/23/24 10:00 02/24/24 10:07 50 MLS/HR Vancomycin HCl 200 ml @ 200 mls/hr Q12H IV 02/25/24 00:00 Examination: GENERAL:Normal, LUNGS:Normal, CVS:Normal, ABDOMEN:Normal, SKIN:Normal, NEURO:Normal laboratory and microbiology Laboratory Tests 02/24/24 05:56 Test 02/24/24 05:56 Range/Units Serum Glucose 100 74-106 mg/dL Microbiology Date/Time Source Procedure Growth Status 02/22/24 18:03 Sacrum Gram Stain - Final Resulted 02/22/24 18:03 Sacrum Wound Culture - Preliminary Resulted 02/20/24 15:00 Blood Blood Culture - Preliminary NO GROWTH AFTER 72 HOURS OF INCUBATION. Resulted Labs and/or images reviewed: Labs reviewed by me, Image(s) reviewed by me Problem List/Assessment/Plan Problem List/Assessment/Plan 1. Sepsis IV abx, ID Consult 2. Acute renal Failure Nephrology Consult, Monitoring 3. Elevated Liver Enzyme medication, monitoring 4. Decubitis ulcer to Coccyx Medication, monitoring 5. Homelessness Instructional Support Specialist Consult Assessment/Plan Subjective: Patient is awake and alert. Objective: Patient was admitted for sepsis and acute renal failure. Patient has a nonhealing wound to his coccyx and he is reportedly homeless. Per Infectious Disease we will continue Rocephin and vancomycin. Cardiology was consulted for sepsis. Patients WBC count is 33 upon admission. Patient was seen by general surgery, and is S/P debridement of decubitus ulcer, patient was cleared by general surgeon for discharge. We will discuss case with Infectious Disease to determine discharge recommendations Plan: Continue current treatment. Monitor daily labs. Awaiting Infectious Disease recommendations for discharge Monitor renal function. Monitor SUE's. Surgical consult appreciated Plan discussed with: Patient Date of Service: Feb 24, 2024 Billing Provider: AMAURY DEE MD Common Visit Codes: [id number] INP/OBS CARE (MOD) YELENA BRANDON [employer]IOR [employer]CIAL LO[employer]ICER Feb 24, 2024 14:43
[2024-02-24] MEDS: SULFAMETHOX W/TRIMETH(800/160MG) DS TAB PO SCH (22:06)
[2024-02-24] MEDS: AMOXICILLIN/CLAVUL 875 MG TAB PO SCH (22:06)
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
[2024-02-25] VITALS (7 sets, daily range): BP systolic 96–106; BP diastolic 60–66; PULSE 97–104; RESP 16–22; TEMP 97.7–98.1; O2SAT 96–100
[2024-02-25] MEDS ORDERED: VANCOMYCIN 1GM/250ML KIT 200 ML IV SCH
[2024-02-25 06:25] LABS: Basophils # (auto) 0.1 10 ^3/uL (0-0.2); Basophils % (auto) 1.3 % (0.0-2.0); Eosinophils # (auto) 0.2 10 ^3/uL (0-0.8); Eosinophils % (auto) 2.6 % (0.0-7.0); Hematocrit 30.8 % (41.0-53.0); Hemoglobin 10.1 g/dL (13.5-17.5); Lymphocytes # (auto) 1.1 10 ^3/uL (0.4-5.4); Mean Corpuscular Hemoglobin 28.7 pg (28.0-32.0); Mean Corpuscular Hgb Conc. 32.6 g/dL (32.0-36.0); Mean Corpuscular Volume 88.1 fL (80.0-100.0); Monocytes # (auto) 0.7 10 ^3/uL (0-1.3); Monocytes % (auto) 8.6 % (0.0-12.0); Neutrophils # (auto) 6.2 10 ^3/uL (1.6-8.6); Neutrophils % (auto) 74.5 % (37.0-80.0); Platelet Count (auto) 448 10^3/uL (140-450); Red Cell Distribution Width 14.9 % (11.8-14.3); White Blood Cell 8.3 10^3/uL (4.4-10.8)
[2024-02-25 06:39] LABS: Alanine Aminotransferase 44 U/L (7-40); Albumin 2.9 g/dL (3.2-4.8); Alkaline Phosphatase 94 U/L (46-116); Anion Gap 8 (5-15); Aspartate Aminotransferase 23 U/L (13-40); BUN/Creatinine Ratio 17.8 (10.0-20.0); Bilirubin, Total 0.2 mg/dL (0.2-1.0); Blood Urea Nitrogen 23 mg/dL (9-23); Calcium 8.7 mg/dL (8.7-10.4); Carbon Dioxide 23 mmol/L (20-31); Chloride 109 mmol/L (98-107); Glucose 104 mg/dL (74-106); Potassium 4.3 mmol/L (3.5-5.1); Sodium 140 mmol/L (136-145)
[2024-02-25] MEDS: Juven Orange Powder PACKET 27.5gm PO SCH (08:00)
[2024-02-25] MEDS: BUPIVACAINE HCL 50 ML ONE (08:19)
[2024-02-25] MEDS: METOCLOPRAMIDE HCL 5MG/ml INJ 2ml VIAL IV ONE (08:19)
[2024-02-25] MEDS: KETOROLAC TROMETH 30 MG/ML 1ML VIAL IV ONE (08:19)
[2024-02-25] MEDS: LIDOCAINE 1% HCL (LOCAL ANESTH.) INJ 20ML MDV ONE (08:20)
--- NOTE | 2024-02-25 16:03 | DVHPN2 ---
Progress Note Date Seen: Feb 25, 2024 Has the PT tested + for MRSA If YES, has PT been informed?: No Medical Necessity Reason Pt with a Central, PICC or Fol: No Subjective Review of Systems: CVS:Normal, RESPIRATORY:Normal, GI:Normal, NEURO:Normal Objective vital signs Vital Sign Date Time Temp Pulse Resp B/P (MAP) Pulse Ox O2 Delivery O2 Flow Rate FiO2 02/25/24 13:00 98.1 98 16 96/64 (75) 98 98.1 02/25/24 08:00 Room Air* 0 21 Total Intake and Output 02/24/24 02/24/24 02/25/24 15:00 23:00 07:00 Intake Total 1225 ml 2600 ml Output Total 3200 ml 1900 ml Balance -1975 ml 700 ml medications Current Medications Medications Dose Ordered Sig/Jacquelyn Route Start Time Stop Time Status Last Admin Dose Admin Vancomycin HCl 0 ml @ 0 mls/hr UD IV 02/20/24 15:15 Cancel Acetaminophen 325 mg Q4HP PRN PO 02/20/24 21:45 Acetaminophen/ Hydrocodone Bitart 1 tab Q4HP PRN PO 02/20/24 21:45 02/21/24 21:27 1 TAB Ondansetron HCl 4 mg Q4HP PRN IV 02/20/24 21:45 Docusate Sodium 100 mg BIDPRN PRN PO 02/20/24 21:45 Zinc Sulfate 220 mg DAILY PO 02/21/24 10:00 02/25/24 12:35 220 MG Ascorbic Acid 500 mg BID PO 02/20/24 22:00 02/25/24 12:35 500 MG Multivitamins 1 tab DAILY PO 02/21/24 10:00 02/25/24 12:35 1 TAB Nitroglycerin 0.4 mg Q5MINP PRN SL 02/20/24 21:45 Sodium Chloride 1,000 ml @ 100 mls/hr Q10H IV 02/21/24 19:00 02/25/24 05:40 100 MLS/HR Pantoprazole Sodium 40 mg DAILY@0600 PO 02/22/24 11:30 02/24/24 05:57 40 MG Enoxaparin Sodium 40 mg DAILY SC 02/22/24 11:45 02/25/24 12:36 40 MG Morphine Sulfate 2 mg Q2HP PRN IV 02/22/24 17:45 Acetaminophen/ Hydrocodone Bitart 1 tab Q4HP PRN PO 02/22/24 17:45 02/22/24 22:49 1 TAB Vancomycin HCl 200 ml @ 200 mls/hr Q12H IV 02/25/24 00:00 Cancel Enteral Nutritional Formula 27.5 gm BIDWM PO 02/25/24 08:00 02/25/24 08:00 27.5 GM Trimethoprim/ Sulfamethoxazole 1 tab Q12HR PO 02/24/24 22:00 02/25/24 12:35 1 TAB Amoxicillin/ Clavulanate Potassium 875 mg Q12HR PO 02/24/24 22:00 02/25/24 12:35 875 MG Examination: GENERAL:Normal, LUNGS:Normal, CVS:Normal, ABDOMEN:Normal, SKIN:Normal, NEURO:Normal laboratory and microbiology Laboratory Tests 02/25/24 05:49 Test 02/25/24 05:49 Range/Units Serum Glucose 104 74-106 mg/dL Microbiology Date/Time Source Procedure Growth Status 02/22/24 18:03 Sacrum Gram Stain - Final Complete 02/22/24 18:03 Wound Culture - Final Methicillin Resistant S.aureus Complete 02/20/24 15:00 Blood Blood Culture - Final NO GROWTH AFTER 5 DAYS OF INCUBATION. Complete Problem List/Assessment/Plan Problem List/Assessment/Plan 1. Sepsis IV abx, ID Consult 2. Acute renal Failure Nephrology Consult, Monitoring 3. Elevated Liver Enzyme medication, monitoring 4. Decubitis ulcer to Coccyx Medication, monitoring 5. Homelessness Corrugator Consult Assessment/Plan Subjective: Patient is awake and alert. Objective: Patient was admitted for sepsis and acute renal failure. Patient has a nonhealing wound to his coccyx and he is reportedly homeless. Per Infectious Disease we will continue Rocephin and vancomycin. Cardiology was consulted for sepsis. Patients WBC count is 33 upon admission. Patient was seen by general surgery, and is S/P debridement of decubitus ulcer, patient was cleared by general surgeon for discharge. Infectious Disease is awaiting finalization surgical cultures prior to determining discharge recommendations for antibiotics. Plan: Continue current treatment. Monitor daily labs. Awaiting surgical cultures for Infectious Disease to determine antibiotics. Monitor renal function. Monitor SUE's. Surgical consult appreciated Plan discussed with: Patient Dietary Evaluation Review Comments: 1. Continue current diet regime 2. Consider Velasquez BID (180kcal, 5g pro) Expected Outcomes/Goals: 1. Pt will consume >75% estimated needs within 3-5 days Date of Service: Feb 25, 2024 Billing Provider: AMAURY DEE MD Common Visit Codes: 47835-[id number] INP/OBS CARE (MOD) YELENA BRANDON [employer] Feb 25, 2024 16:03
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
[2024-02-26 05:00] VITALS: BP 90/58; PULSE 74; RESP 17; TEMP 98.4; O2SAT 100
[2024-02-26 08:00] VITALS: PULSE 89; PULSE 97; RESP 18; O2SAT 99
[2024-02-26] MEDS ORDERED: ROCURONIUM 10MG/ML 10ML VIAL IV ONE (08:52)
[2024-02-26] MEDS ORDERED: SUCCINYLCHOLINE CHLORIDE 20 MG/ML 10ML VIAL IV ONE (08:52)
[2024-02-26 09:00] VITALS: BP 99/61; PULSE 89; RESP 18; TEMP 97.9; O2SAT 99
[2024-02-26 10:26] LABS: Hepatitis B Surface Antigen Negative (Negative)
[2024-02-26] MEDS ORDERED: BACDST PO (10:37)
[2024-02-26] MEDS ORDERED: AUG875T PO (10:37)
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
[2024-02-26 10:48] LABS: Hepatitis A Ab IgM Negative; Hepatitis B Core IgM Negative; Hepatitis C Antibody Negative (Negative)
[2024-02-26] MEDS ORDERED: VANCOMYCIN PER PHARMACY 0 MG IV SCH (13:15)
[2024-02-26] MEDS: VANCOMYCIN 1GM/250ML KIT 200 ML IV SCH (15:36)
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
[2024-02-26 20:00] VITALS: PULSE 103; RESP 17
[2024-02-26 21:00] VITALS: BP 103/66; PULSE 101; RESP 16; TEMP 98.7; O2SAT 98
[2024-02-27] VITALS (8 sets, daily range): BP systolic 93–100; BP diastolic 58–75; PULSE 91–102; RESP 16–20; TEMP 97.9–98.6; O2SAT 97–99
[2024-02-27 07:15] LABS: Basophils # (auto) 0 10 ^3/uL (0-0.2); Basophils % (auto) 0.6 % (0.0-2.0); Eosinophils # (auto) 0.1 10 ^3/uL (0-0.8); Eosinophils % (auto) 1.9 % (0.0-7.0); Hematocrit 31.5 % (41.0-53.0); Hemoglobin 10.5 g/dL (13.5-17.5); Lymphocytes # (auto) 1.3 10 ^3/uL (0.4-5.4); Lymphocytes % (auto) 16.5 % (10.0-50.0); Mean Corpuscular Hemoglobin 29.4 pg (28.0-32.0); Mean Corpuscular Hgb Conc. 33.3 g/dL (32.0-36.0); Mean Corpuscular Volume 88.1 fL (80.0-100.0); Monocytes # (auto) 0.8 10 ^3/uL (0-1.3); Neutrophils # (auto) 5.4 10 ^3/uL (1.6-8.6); Platelet Count (auto) 430 10^3/uL (140-450); Red Blood Cells 3.57 10^6/uL (4.5-5.90); Red Cell Distribution Width 14.7 % (11.8-14.3); White Blood Cell 7.6 10^3/uL (4.4-10.8)
[2024-02-27] MEDS: cefTRIAXone 2GM/50ML D5W 50 ML IV SCH (09:39)
--- NOTE | 2024-02-27 12:06 | DVHPN2 ---
Progress Note - Dictate Date Seen: Feb 27, 2024 Has the PT tested + for MRSA If YES, has PT been informed?: No Medical Necessity Reason Pt with a Central, PICC or Fol: No vital signs Vital Sign Date Time Temp Pulse Resp B/P (MAP) Pulse Ox O2 Delivery O2 Flow Rate FiO2 02/27/24 09:00 98.1 99 20 97/75 (82) 97 98.1 02/27/24 08:00 Room Air* 0 21 Total Intake and Output 02/26/24 02/26/24 02/27/24 15:00 23:00 07:00 Intake Total 2300 ml 700 ml Output Total 3550 ml 2175 ml Balance -1250 ml -1475 ml medications Current Medications Medications Dose Ordered Sig/Jacquelyn Route Start Time Stop Time Status Last Admin Dose Admin Vancomycin HCl 0 ml @ 0 mls/hr UD IV 02/20/24 15:15 Cancel Acetaminophen 325 mg Q4HP PRN PO 02/20/24 21:45 Acetaminophen/ Hydrocodone Bitart 1 tab Q4HP PRN PO 02/20/24 21:45 02/21/24 21:27 1 TAB Ondansetron HCl 4 mg Q4HP PRN IV 02/20/24 21:45 Docusate Sodium 100 mg BIDPRN PRN PO 02/20/24 21:45 Zinc Sulfate 220 mg DAILY PO 02/21/24 10:00 02/27/24 09:39 220 MG Ascorbic Acid 500 mg BID PO 02/20/24 22:00 02/27/24 09:38 500 MG Multivitamins 1 tab DAILY PO 02/21/24 10:00 02/27/24 09:38 1 TAB Nitroglycerin 0.4 mg Q5MINP PRN SL 02/20/24 21:45 Sodium Chloride 1,000 ml @ 100 mls/hr Q10H IV 02/21/24 19:00 02/26/24 18:08 100 MLS/HR Pantoprazole Sodium 40 mg DAILY@0600 PO 02/22/24 11:30 02/27/24 05:46 40 MG Enoxaparin Sodium 40 mg DAILY SC 02/22/24 11:45 02/27/24 09:39 40 MG Morphine Sulfate 2 mg Q2HP PRN IV 02/22/24 17:45 Acetaminophen/ Hydrocodone Bitart 1 tab Q4HP PRN PO 02/22/24 17:45 02/22/24 22:49 1 TAB Vancomycin HCl 200 ml @ 200 mls/hr Q12H IV 02/25/24 00:00 Cancel Enteral Nutritional Formula 27.5 gm BIDWM PO 02/25/24 08:00 02/27/24 08:03 27.5 GM Vancomycin HCl 0 ml @ 0 mls/hr UD IV 02/26/24 13:15 Ceftriaxone Sodium/Dextrose 50 ml @ 50 mls/hr DAILY IV 02/27/24 10:00 02/27/24 09:39 50 MLS/HR Vancomycin HCl 200 ml @ 200 mls/hr Q24H IV 02/26/24 16:00 02/26/24 15:36 200 MLS/HR objective General Appearance: alert, no distress HEENT: EOMI, PERRLA, normal external inspect of ears, no icterus, no nasal drainage Neck: no carotid bruit, no jugular venous distention (JVD), no lymphadenopathy Chest: normal thorax Respiratory: clear to auscultation, normal air movement Cardiovascular: regular rate and rhythm, no diastolic murmur, no jugular venous distention (JVD), no rub, no systolic murmur Abdominal: soft, no hepatomegaly, no mass, no splenomegaly, no tenderness Genitourinary: grossly normal external Musculoskeletal: no joint tenderness, no swelling Extremities: normal pulses, no calf tenderness, no clubbing, no cyanosis, no edema Skin: no bruising, no jaundice, no rash Neurological: alert, No focal deficit laboratory and microbiology Laboratory Tests 02/27/24 05:59 02/25/24 05:49 Test 02/25/24 05:49 Range/Units Serum Glucose 104 74-106 mg/dL Problem List 1. Sepsis IV abx, ID Consult 2. Acute renal Failure Nephrology Consult, Monitoring 3. Elevated Liver Enzyme medication, monitoring 4. Decubitis ulcer to Coccyx Medication, monitoring 5. 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 Objective: No change in patient status. Patient was admitted for a non-healing wound to his coccyx. Patient is status post IND by Dr. Feliciano. Preliminary cultures are growing Staphylococcus aureus. Patient was evaluated by infectious disease. He states he is homeless and unable to manage daily dressing changes independently. Plan: Physical therapy evaluation, [facility] and wound care. Dietary Evaluation Review Comments: 1. Continue current diet regime 2. Consider Velasquez BID (180kcal, 5g pro) Expected Outcomes/Goals: 1. Pt will consume >75% estimated needs within 3-5 days Plan discussed with: Patient, Other RAY MCGOVERN PIN MACHINE OPERATOR Feb 27, 2024 12:06
[2024-02-27] MEDS: VANCOMYCIN 1GM/250ML KIT 200 ML IV SCH (16:12)
[2024-02-28] VITALS (8 sets, daily range): BP systolic 91–100; BP diastolic 57–66; PULSE 85–98; RESP 16–19; TEMP 97.1–98.2; O2SAT 94–98
[2024-02-28] MEDS: VANCOMYCIN HCL 1000 MG VL ONE (03:23)
--- NOTE | 2024-02-28 11:34 | DVHPN2 ---
Progress Note - Dictate Date Seen: Feb 28, 2024 Has the PT tested + for MRSA If YES, has PT been informed?: No Medical Necessity Reason Pt with a Central, PICC or Fol: No vital signs Vital Sign Date Time Temp Pulse Resp B/P (MAP) Pulse Ox O2 Delivery O2 Flow Rate FiO2 02/28/24 09:00 97.9 91 17 98/57 (71) 98 97.9 02/27/24 20:00 Room Air* 0 21 Total Intake and Output 02/27/24 02/27/24 02/28/24 15:00 23:00 07:00 Intake Total 50 ml 1480 ml 2800 ml Output Total 4240 ml 2100 ml Balance 50 ml -2760 ml 700 ml medications Current Medications Medications Dose Ordered Sig/Jacquelyn Route Start Time Stop Time Status Last Admin Dose Admin Vancomycin HCl 0 ml @ 0 mls/hr UD IV 02/20/24 15:15 Cancel Acetaminophen 325 mg Q4HP PRN PO 02/20/24 21:45 Acetaminophen/ Hydrocodone Bitart 1 tab Q4HP PRN PO 02/20/24 21:45 02/21/24 21:27 1 TAB Ondansetron HCl 4 mg Q4HP PRN IV 02/20/24 21:45 Docusate Sodium 100 mg BIDPRN PRN PO 02/20/24 21:45 Zinc Sulfate 220 mg DAILY PO 02/21/24 10:00 02/28/24 09:20 220 MG Ascorbic Acid 500 mg BID PO 02/20/24 22:00 02/28/24 09:20 500 MG Multivitamins 1 tab DAILY PO 02/21/24 10:00 02/28/24 09:20 1 TAB Nitroglycerin 0.4 mg Q5MINP PRN SL 02/20/24 21:45 Sodium Chloride 1,000 ml @ 100 mls/hr Q10H IV 02/21/24 19:00 02/28/24 00:39 100 MLS/HR Pantoprazole Sodium 40 mg DAILY@0600 PO 02/22/24 11:30 02/28/24 05:08 40 MG Enoxaparin Sodium 40 mg DAILY SC 02/22/24 11:45 02/28/24 09:20 40 MG Morphine Sulfate 2 mg Q2HP PRN IV 02/22/24 17:45 Acetaminophen/ Hydrocodone Bitart 1 tab Q4HP PRN PO 02/22/24 17:45 02/22/24 22:49 1 TAB Vancomycin HCl 200 ml @ 200 mls/hr Q12H IV 02/25/24 00:00 Cancel Enteral Nutritional Formula 27.5 gm BIDWM PO 02/25/24 08:00 02/27/24 19:18 27.5 GM Vancomycin HCl 0 ml @ 0 mls/hr UD IV 02/26/24 13:15 Ceftriaxone Sodium/Dextrose 50 ml @ 50 mls/hr DAILY IV 02/27/24 10:00 02/28/24 09:20 50 MLS/HR Vancomycin HCl 200 ml @ 200 mls/hr Q12H IV 02/27/24 17:00 02/28/24 05:08 200 MLS/HR objective General Appearance: alert, no distress HEENT: EOMI, PERRLA, normal external inspect of ears, no icterus, no nasal drainage Neck: no carotid bruit, no jugular venous distention (JVD), no lymphadenopathy Chest: normal thorax Respiratory: clear to auscultation, normal air movement Cardiovascular: regular rate and rhythm, no diastolic murmur, no jugular venous distention (JVD), no rub, no systolic murmur Abdominal: soft, no hepatomegaly, no mass, no splenomegaly, no tenderness Genitourinary: grossly normal external Musculoskeletal: no joint tenderness, no swelling Extremities: normal pulses, no calf tenderness, no clubbing, no cyanosis, no edema Skin: no bruising, no jaundice, no rash Neurological: alert, No focal deficit laboratory and microbiology Laboratory Tests 02/28/24 04:20 02/27/24 05:59 02/25/24 05:49 Test 02/25/24 05:49 Range/Units Serum Glucose 104 74-106 mg/dL Problem List 1. Sepsis IV abx, ID Consult 2. Acute renal Failure Nephrology Consult, Monitoring 3. Elevated Liver Enzyme medication, monitoring 4. Decubitis ulcer to Coccyx Medication, monitoring 5. 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 Objective: Patient is status post I&D by Dr. Feliciano. Still waiting on placement at SNF for assistance with wound care and rehab. Waiting for PT eval today. Plan: Continue IV antibiotics. Continue wound care. PT eval. DC planning to SNF for rehab and wound care. Dietary Evaluation Review Comments: 1. Continue current diet regime 2. Consider Velasquez BID (180kcal, 5g pro) Expected Outcomes/Goals: 1. Pt will consume >75% estimated needs within 3-5 days Plan discussed with: Patient, Other RAY MCGOVERN MANAGER SKILLED Feb 28, 2024 11:34
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
[2024-02-29] VITALS (8 sets, daily range): BP systolic 92–101; BP diastolic 58–65; PULSE 85–98; RESP 16–18; TEMP 97.3–98.4; O2SAT 97–100
--- NOTE | 2024-02-29 06:26 | DVHPN2 ---
Progress Note - Dictate Date Seen: Feb 29, 2024 Has the PT tested + for MRSA If YES, has PT been informed?: No Medical Necessity Reason Pt with a Central, PICC or Fol: No vital signs Vital Sign Date Time Temp Pulse Resp B/P (MAP) Pulse Ox O2 Delivery O2 Flow Rate FiO2 02/29/24 05:00 98.2 98 18 99/65 (76) 98 98.2 02/28/24 20:00 Room Air* 0 21 Total Intake and Output 02/28/24 02/28/24 02/29/24 15:00 23:00 07:00 Intake Total 50 ml 1140 ml 650 ml Output Total 1200 ml 2050 ml 1100 ml Balance -1150 ml -910 ml -450 ml medications Current Medications Medications Dose Ordered Sig/Jacquelyn Route Start Time Stop Time Status Last Admin Dose Admin Vancomycin HCl 0 ml @ 0 mls/hr UD IV 02/20/24 15:15 Cancel Acetaminophen 325 mg Q4HP PRN PO 02/20/24 21:45 Acetaminophen/ Hydrocodone Bitart 1 tab Q4HP PRN PO 02/20/24 21:45 02/21/24 21:27 1 TAB Ondansetron HCl 4 mg Q4HP PRN IV 02/20/24 21:45 Docusate Sodium 100 mg BIDPRN PRN PO 02/20/24 21:45 Zinc Sulfate 220 mg DAILY PO 02/21/24 10:00 02/28/24 09:20 220 MG Ascorbic Acid 500 mg BID PO 02/20/24 22:00 02/28/24 21:16 500 MG Multivitamins 1 tab DAILY PO 02/21/24 10:00 02/28/24 09:20 1 TAB Nitroglycerin 0.4 mg Q5MINP PRN SL 02/20/24 21:45 Sodium Chloride 1,000 ml @ 100 mls/hr Q10H IV 02/21/24 19:00 02/29/24 05:31 100 MLS/HR Pantoprazole Sodium 40 mg DAILY@0600 PO 02/22/24 11:30 02/29/24 05:28 40 MG Enoxaparin Sodium 40 mg DAILY SC 02/22/24 11:45 02/28/24 09:20 40 MG Morphine Sulfate 2 mg Q2HP PRN IV 02/22/24 17:45 Acetaminophen/ Hydrocodone Bitart 1 tab Q4HP PRN PO 02/22/24 17:45 02/22/24 22:49 1 TAB Vancomycin HCl 200 ml @ 200 mls/hr Q12H IV 02/25/24 00:00 Cancel Enteral Nutritional Formula 27.5 gm BIDWM PO 02/25/24 08:00 02/28/24 18:27 27.5 GM Vancomycin HCl 0 ml @ 0 mls/hr UD IV 02/26/24 13:15 Ceftriaxone Sodium/Dextrose 50 ml @ 50 mls/hr DAILY IV 02/27/24 10:00 02/28/24 09:20 50 MLS/HR Vancomycin HCl 200 ml @ 200 mls/hr Q12H IV 02/27/24 17:00 02/29/24 05:57 200 MLS/HR objective General Appearance: alert, no distress HEENT: EOMI, PERRLA, normal external inspect of ears, no icterus, no nasal drainage Neck: no carotid bruit, no jugular venous distention (JVD), no lymphadenopathy Chest: normal thorax Respiratory: clear to auscultation, normal air movement Cardiovascular: regular rate and rhythm, no diastolic murmur, no jugular venous distention (JVD), no rub, no systolic murmur Abdominal: soft, no hepatomegaly, no mass, no splenomegaly, no tenderness Genitourinary: grossly normal external Musculoskeletal: no joint tenderness, no swelling Extremities: normal pulses, no calf tenderness, no clubbing, no cyanosis, no edema Skin: no bruising, no jaundice, no rash Neurological: alert, No focal deficit laboratory and microbiology Laboratory Tests 02/29/24 04:48 02/27/24 05:59 02/25/24 05:49 Test 02/25/24 05:49 Range/Units Serum Glucose 104 74-106 mg/dL Problem List 1. Sepsis IV abx, ID Consult 2. Acute renal Failure Nephrology Consult, Monitoring 3. Elevated Liver Enzyme medication, monitoring 4. Decubitis ulcer to Coccyx Medication, monitoring 5. Homelessness Certified Prosthetist Consult Assessment/Plan Subjective: Patient is awake and alert. Objective: Patient is waiting for a half-way facility. Patient is homeless. He is status post debridement of his decubitus ulcer by Dr. Feliciano. Patient has a [place] drain in place. Patient has been working with physical therapy. Plan: Continue current treatment, plan to discharge to half-way facility once a bed is available, and continue antibiotics as recommended by ID. Dietary Evaluation Review Comments: 1. Continue current diet regime 2. Consider Velasquez BID (180kcal, 5g pro) Expected Outcomes/Goals: 1. Pt will consume >75% estimated needs within 3-5 days Plan discussed with: Patient, Other RAY MCGOVERN NP Feb 29, 2024 06:26
[2024-02-29] MEDS: VANCOMYCIN 1GM/250ML KIT 200 ML IV SCH (20:39)
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
[2024-03-01] VITALS (8 sets, daily range): BP systolic 93–107; BP diastolic 54–67; PULSE 70–105; RESP 15–19; TEMP 97.7–98.2; O2SAT 93–100
--- NOTE | 2024-03-01 12:05 | DVHPN2 ---
Progress Note - Dictate Date Seen: Mar 01, 2024 Has the PT tested + for MRSA If YES, has PT been informed?: No Medical Necessity Reason Pt with a Central, PICC or Fol: No vital signs Vital Sign Date Time Temp Pulse Resp B/P (MAP) Pulse Ox O2 Delivery O2 Flow Rate FiO2 03/01/24 09:00 97.7 70 15 93/57 (69) 93 97.7 03/01/24 08:00 Room Air* 0 21 Total Intake and Output 02/29/24 02/29/24 03/01/24 15:00 23:00 07:00 Intake Total 50 ml 944 ml 2100 ml Output Total 2200 ml 1000 ml Balance 50 ml -1256 ml 1100 ml medications Current Medications Medications Dose Ordered Sig/Jacquelyn Route Start Time Stop Time Status Last Admin Dose Admin Vancomycin HCl 0 ml @ 0 mls/hr UD IV 02/20/24 15:15 Cancel Acetaminophen 325 mg Q4HP PRN PO 02/20/24 21:45 Acetaminophen/ Hydrocodone Bitart 1 tab Q4HP PRN PO 02/20/24 21:45 02/21/24 21:27 1 TAB Ondansetron HCl 4 mg Q4HP PRN IV 02/20/24 21:45 Docusate Sodium 100 mg BIDPRN PRN PO 02/20/24 21:45 Zinc Sulfate 220 mg DAILY PO 02/21/24 10:00 03/01/24 09:27 220 MG Ascorbic Acid 500 mg BID PO 02/20/24 22:00 03/01/24 09:27 500 MG Multivitamins 1 tab DAILY PO 02/21/24 10:00 03/01/24 09:27 1 TAB Nitroglycerin 0.4 mg Q5MINP PRN SL 02/20/24 21:45 Sodium Chloride 1,000 ml @ 100 mls/hr Q10H IV 02/21/24 19:00 03/01/24 03:28 100 MLS/HR Pantoprazole Sodium 40 mg DAILY@0600 PO 02/22/24 11:30 03/01/24 05:35 40 MG Enoxaparin Sodium 40 mg DAILY SC 02/22/24 11:45 03/01/24 09:29 40 MG Morphine Sulfate 2 mg Q2HP PRN IV 02/22/24 17:45 Acetaminophen/ Hydrocodone Bitart 1 tab Q4HP PRN PO 02/22/24 17:45 02/22/24 22:49 1 TAB Vancomycin HCl 200 ml @ 200 mls/hr Q12H IV 02/25/24 00:00 Cancel Enteral Nutritional Formula 27.5 gm BIDWM PO 02/25/24 08:00 03/01/24 08:00 27.5 GM Vancomycin HCl 0 ml @ 0 mls/hr UD IV 02/26/24 13:15 Ceftriaxone Sodium/Dextrose 50 ml @ 50 mls/hr DAILY IV 02/27/24 10:00 03/01/24 09:38 50 MLS/HR Vancomycin HCl 200 ml @ 200 mls/hr Q14H IV 02/29/24 20:00 03/01/24 09:42 200 MLS/HR objective General Appearance: alert, no distress HEENT: EOMI, PERRLA, normal external inspect of ears, no icterus, no nasal drainage Neck: no carotid bruit, no jugular venous distention (JVD), no lymphadenopathy Chest: normal thorax Respiratory: clear to auscultation, normal air movement Cardiovascular: regular rate and rhythm, no diastolic murmur, no jugular venous distention (JVD), no rub, no systolic murmur Abdominal: soft, no hepatomegaly, no mass, no splenomegaly, no tenderness Genitourinary: grossly normal external Musculoskeletal: no joint tenderness, no swelling Extremities: normal pulses, no calf tenderness, no clubbing, no cyanosis, no edema Skin: no bruising, no jaundice, no rash Neurological: alert, No focal deficit laboratory and microbiology Laboratory Tests 03/01/24 04:53 02/27/24 05:59 02/25/24 05:49 Test 02/25/24 05:49 Range/Units Serum Glucose 104 74-106 mg/dL Problem List 1. Sepsis IV abx, ID Consult 2. Acute renal Failure Nephrology Consult, Monitoring 3. Elevated Liver Enzyme medication, monitoring 4. Decubitis ulcer to Coccyx Medication, monitoring 5. Homelessness [employer] Consult Assessment/Plan Subjective: Patient is awake and alert. Objective: Patient has no complaints at this time. Patient is pending placement at [facility]. Patient is status post I&D by Dr. Feliciano to his coccyx. Patient has [place] drain in place. He is currently on vancomycin and Rocephin. Patient was seen by infectious disease. Patient is homeless. Plan: Continue daily wound care. Continue IV antibiotics. DC plan to [facility] once bed is available. Dietary Evaluation Review Comments: 1. Continue current diet regime 2. Consider Velasquez BID (180kcal, 5g pro) Expected Outcomes/Goals: 1. Pt will consume >75% estimated needs within 3-5 days Plan discussed with: Patient, Other RAY MCGOVERN RESIDENCY DIRECTOR Mar 01, 2024 12:05
[2024-03-01] MEDS: Juven Orange Powder PACKET 27.5gm PO SCH (18:17)
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
[2024-03-02] VITALS (12 sets, daily range): BP systolic 92–111; BP diastolic 58–70; PULSE 84–94; RESP 16–98; TEMP 97.5–99; O2SAT 93–100
[2024-03-02 06:11] LABS: Basophils # (auto) 0.1 10 ^3/uL (0-0.2); Basophils % (auto) 0.9 % (0.0-2.0); Eosinophils # (auto) 0.1 10 ^3/uL (0-0.8); Eosinophils % (auto) 2.1 % (0.0-7.0); Hematocrit 31.6 % (41.0-53.0); Hemoglobin 10.5 g/dL (13.5-17.5); Lymphocytes # (auto) 1.7 10 ^3/uL (0.4-5.4); Lymphocytes % (auto) 25.3 % (10.0-50.0); Mean Corpuscular Hemoglobin 29.2 pg (28.0-32.0); Mean Corpuscular Hgb Conc. 33.4 g/dL (32.0-36.0); Mean Corpuscular Volume 87.5 fL (80.0-100.0); Monocytes # (auto) 0.5 10 ^3/uL (0-1.3); Monocytes % (auto) 8.3 % (0.0-12.0); Neutrophils # (auto) 4.1 10 ^3/uL (1.6-8.6); Neutrophils % (auto) 63.4 % (37.0-80.0); Nucleated Red Blood Cells % 0.2 %; Platelet Count (auto) 440 10^3/uL (140-450); Red Blood Cells 3.61 10^6/uL (4.5-5.90); Red Cell Distribution Width 14.7 % (11.8-14.3); White Blood Cell 6.5 10^3/uL (4.4-10.8)
[2024-03-02 06:21] LABS: Anion Gap 11 (5-15); Calcium 9.2 mg/dL (8.7-10.4); Carbon Dioxide 24 mmol/L (20-31); Chloride 105 mmol/L (98-107); Potassium 3.9 mmol/L (3.5-5.1); Sodium 140 mmol/L (136-145)
[2024-03-02 06:26] LABS: Glucose 93 mg/dL (74-106)
[2024-03-02 06:27] LABS: BUN/Creatinine Ratio 25.6 (10.0-20.0); Magnesium 1.8 mg/dL (1.6-2.6)
[2024-03-02 06:31] LABS: Blood Urea Nitrogen 23 mg/dL (9-23)
--- NOTE | 2024-03-02 13:40 | DVHPN2 ---
Progress Note - Dictate Date Seen: Mar 02, 2024 Has the PT tested + for MRSA If YES, has PT been informed?: No Medical Necessity Reason Pt with a Central, PICC or Fol: No vital signs Vital Sign Date Time Temp Pulse Resp B/P (MAP) Pulse Ox O2 Delivery O2 Flow Rate FiO2 03/02/24 09:00 98.0 93 98 111/65 (80) 93 98.0 03/02/24 08:16 Room Air* 0 21 Total Intake and Output 03/01/24 03/01/24 03/02/24 15:00 23:00 07:00 Intake Total 50 ml 1600 ml 800 ml Output Total 3600 ml 1500 ml Balance 50 ml -2000 ml -700 ml medications Current Medications Medications Dose Ordered Sig/Jacquelyn Route Start Time Stop Time Status Last Admin Dose Admin Vancomycin HCl 0 ml @ 0 mls/hr UD IV 02/20/24 15:15 Cancel Acetaminophen 325 mg Q4HP PRN PO 02/20/24 21:45 Acetaminophen/ Hydrocodone Bitart 1 tab Q4HP PRN PO 02/20/24 21:45 02/21/24 21:27 1 TAB Ondansetron HCl 4 mg Q4HP PRN IV 02/20/24 21:45 Docusate Sodium 100 mg BIDPRN PRN PO 02/20/24 21:45 Zinc Sulfate 220 mg DAILY PO 02/21/24 10:00 03/02/24 09:54 220 MG Ascorbic Acid 500 mg BID PO 02/20/24 22:00 03/02/24 09:54 500 MG Multivitamins 1 tab DAILY PO 02/21/24 10:00 03/02/24 09:54 1 TAB Nitroglycerin 0.4 mg Q5MINP PRN SL 02/20/24 21:45 Sodium Chloride 1,000 ml @ 100 mls/hr Q10H IV 02/21/24 19:00 03/02/24 09:00 100 MLS/HR Pantoprazole Sodium 40 mg DAILY@0600 PO 02/22/24 11:30 03/01/24 05:35 40 MG Enoxaparin Sodium 40 mg DAILY SC 02/22/24 11:45 03/02/24 09:54 40 MG Morphine Sulfate 2 mg Q2HP PRN IV 02/22/24 17:45 Acetaminophen/ Hydrocodone Bitart 1 tab Q4HP PRN PO 02/22/24 17:45 02/22/24 22:49 1 TAB Vancomycin HCl 200 ml @ 200 mls/hr Q12H IV 02/25/24 00:00 Cancel Vancomycin HCl 0 ml @ 0 mls/hr UD IV 02/26/24 13:15 Ceftriaxone Sodium/Dextrose 50 ml @ 50 mls/hr DAILY IV 02/27/24 10:00 03/02/24 09:52 50 MLS/HR Vancomycin HCl 200 ml @ 200 mls/hr Q14H IV 02/29/24 20:00 03/02/24 00:00 200 MLS/HR Enteral Nutritional Formula 27.5 gm BIDWM PO 03/01/24 18:00 03/02/24 08:00 27.5 GM objective General Appearance: alert, no distress HEENT: EOMI, PERRLA, normal external inspect of ears, no icterus, no nasal drainage Neck: no carotid bruit, no jugular venous distention (JVD), no lymphadenopathy Chest: normal thorax Respiratory: clear to auscultation, normal air movement Cardiovascular: regular rate and rhythm, no diastolic murmur, no jugular venous distention (JVD), no rub, no systolic murmur Abdominal: soft, no hepatomegaly, no mass, no splenomegaly, no tenderness Genitourinary: grossly normal external Musculoskeletal: no joint tenderness, no swelling Extremities: normal pulses, no calf tenderness, no clubbing, no cyanosis, no edema Skin: no bruising, no jaundice, no rash Neurological: alert, No focal deficit laboratory and microbiology Laboratory Tests 03/02/24 05:04 Test 03/02/24 05:04 Range/Units Serum Glucose 93 74-106 mg/dL Problem List 1. Sepsis IV abx, ID Consult 2. Acute renal Failure Nephrology Consult, Monitoring 3. Elevated Liver Enzyme medication, monitoring 4. Decubitis ulcer to Coccyx Medication, monitoring 5. Homelessness Php Architect Consult Assessment/Plan Subjective: Patient is awake and alert. Objective: Patient remains stable. Patient is on vancomycin and Rocephin for decubitus ulcer status with debridement. Patient has [place] drains in place. Plan: Continue IV fluids and of normal saline at 100. Continue IV antibiotics. superintendent oil well services working on transfer to assisted facility. General surgery reconsulted to remove [place] drain. Dietary Evaluation Review Comments: 1. Continue current diet regime 2. Consider Velasquez BID (180kcal, 5g pro) Expected Outcomes/Goals: 1. Pt will consume >75% estimated needs within 3-5 days Plan discussed with: Patient, Other RAY MCGOVERN ELECTRONIC ENGRAVER Mar 02, 2024 13:40
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
[2024-03-03] VITALS (8 sets, daily range): BP systolic 90–99; BP diastolic 56–61; PULSE 82–96; RESP 17–20; TEMP 97.8–98.3; O2SAT 92–100
[2024-03-03 05:36] LABS: Basophils # (auto) 0 10 ^3/uL (0-0.2); Basophils % (auto) 0.7 % (0.0-2.0); Eosinophils # (auto) 0.1 10 ^3/uL (0-0.8); Hematocrit 31.6 % (41.0-53.0); Hemoglobin 10.4 g/dL (13.5-17.5); Lymphocytes # (auto) 1.7 10 ^3/uL (0.4-5.4); Lymphocytes % (auto) 25.7 % (10.0-50.0); Mean Corpuscular Hemoglobin 28.9 pg (28.0-32.0); Mean Corpuscular Hgb Conc. 32.8 g/dL (32.0-36.0); Mean Corpuscular Volume 88.2 fL (80.0-100.0); Monocytes # (auto) 0.6 10 ^3/uL (0-1.3); Monocytes % (auto) 8.9 % (0.0-12.0); Neutrophils # (auto) 4.2 10 ^3/uL (1.6-8.6); Neutrophils % (auto) 62.7 % (37.0-80.0); Nucleated Red Blood Cells % 0.1 %; Platelet Count (auto) 422 10^3/uL (140-450); Red Blood Cells 3.58 10^6/uL (4.5-5.90); Red Cell Distribution Width 14.9 % (11.8-14.3); White Blood Cell 6.6 10^3/uL (4.4-10.8)
--- NOTE | 2024-03-03 09:06 | DVHPN2 ---
Progress Note - Dictate Date Seen: Mar 03, 2024 Has the PT tested + for MRSA If YES, has PT been informed?: No Medical Necessity Reason Pt with a Central, PICC or Fol: No vital signs Vital Sign Date Time Temp Pulse Resp B/P (MAP) Pulse Ox O2 Delivery O2 Flow Rate FiO2 03/03/24 09:00 98.2 88 20 97/56 (70) 98 98.2 03/02/24 19:30 Room Air* 0 21 Total Intake and Output 03/02/24 03/02/24 03/03/24 15:00 23:00 07:00 Intake Total 930 ml 500 ml 1400 ml Output Total 2401 ml 3400 ml Balance 930 ml -1901 ml -2000 ml medications Current Medications Medications Dose Ordered Sig/Jacquelyn Route Start Time Stop Time Status Last Admin Dose Admin Vancomycin HCl 0 ml @ 0 mls/hr UD IV 02/20/24 15:15 Cancel Acetaminophen 325 mg Q4HP PRN PO 02/20/24 21:45 Ondansetron HCl 4 mg Q4HP PRN IV 02/20/24 21:45 Docusate Sodium 100 mg BIDPRN PRN PO 02/20/24 21:45 Zinc Sulfate 220 mg DAILY PO 02/21/24 10:00 03/02/24 09:54 220 MG Ascorbic Acid 500 mg BID PO 02/20/24 22:00 03/02/24 21:13 500 MG Multivitamins 1 tab DAILY PO 02/21/24 10:00 03/02/24 09:54 1 TAB Nitroglycerin 0.4 mg Q5MINP PRN SL 02/20/24 21:45 Sodium Chloride 1,000 ml @ 100 mls/hr Q10H IV 02/21/24 19:00 03/03/24 05:22 100 MLS/HR Pantoprazole Sodium 40 mg DAILY@0600 PO 02/22/24 11:30 03/03/24 06:09 40 MG Enoxaparin Sodium 40 mg DAILY SC 02/22/24 11:45 03/02/24 09:54 40 MG Vancomycin HCl 200 ml @ 200 mls/hr Q12H IV 02/25/24 00:00 Cancel Vancomycin HCl 0 ml @ 0 mls/hr UD IV 02/26/24 13:15 Ceftriaxone Sodium/Dextrose 50 ml @ 50 mls/hr DAILY IV 02/27/24 10:00 03/02/24 09:52 50 MLS/HR Vancomycin HCl 200 ml @ 200 mls/hr Q14H IV 02/29/24 20:00 03/03/24 04:20 200 MLS/HR Enteral Nutritional Formula 27.5 gm BIDWM PO 03/01/24 18:00 03/03/24 08:00 27.5 GM objective General Appearance: alert, no distress HEENT: EOMI, PERRLA, normal external inspect of ears, no icterus, no nasal drainage Neck: no carotid bruit, no jugular venous distention (JVD), no lymphadenopathy Chest: normal thorax Respiratory: clear to auscultation, normal air movement Cardiovascular: regular rate and rhythm, no diastolic murmur, no jugular venous distention (JVD), no rub, no systolic murmur Abdominal: soft, no hepatomegaly, no mass, no splenomegaly, no tenderness Genitourinary: grossly normal external Musculoskeletal: no joint tenderness, no swelling Extremities: normal pulses, no calf tenderness, no clubbing, no cyanosis, no edema Skin: no bruising, no jaundice, no rash Neurological: alert, No focal deficit laboratory and microbiology Laboratory Tests 03/03/24 04:58 03/02/24 05:04 Test 03/02/24 05:04 Range/Units Serum Glucose 93 74-106 mg/dL Problem List 1. Sepsis IV abx, ID Consult 2. Acute renal Failure Nephrology Consult, Monitoring 3. Elevated Liver Enzyme medication, monitoring 4. Decubitis ulcer to Coccyx Medication, monitoring 5. Homelessness Health Data Analyst Consult Assessment/Plan Subjective: Patient is awake and alert. Objective: Patient is status post IND on 02/22/24. I spoke with Dr. Feliciano this morning. He is recommending nursing remove stitches and [place] drains. Patient has been working well with physical therapy. Currently on vancomycin and Rocephin per ID recommendations for an additional month pending placement at a retirement facility. Patient is homeless. Plan: Continue wound care and physical therapy, continue IV antibiotics, discharge planning once placement at a retirement facility is found. Dietary Evaluation Review Comments: 1. Continue current diet regime 2. Consider Velasquez BID (180kcal, 5g pro) Expected Outcomes/Goals: 1. Pt will consume >75% estimated needs within 3-5 days Plan discussed with: Patient, Other RAY MCGOVERN PICK UP DRIVER Mar 03, 2024 09:06
--- NOTE | 2024-03-03 15:10 | ECG ---
[facility] Test Date: 2024-02-23 Test Time: 07:07:50 Pat Name: JUAN CARLOS TEJADA Department: Room: 0208T A Gender: M Domestic Maid: RONAL : 1980 Requested By: RAY MCGOVERN Order Number: [id number] Reading MD: Rodolfo Lucero Measurements Intervals [place] Rate: 92 P: 50 SD: 135 QRS: 29 QRSD: 83 T: 46 QT: 352 QTc: 436 Interpretive Statements Sinus rhythm ST elev, probable normal early repol pattern Baseline wander in lead(s) V2 Electronically Signed On 03-04-2024 9:08:13 PST by Rodolfo Lucero Please click the below link to view image of tracing.
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
[2024-03-04] VITALS (8 sets, daily range): BP systolic 88–97; BP diastolic 53–62; PULSE 82–92; RESP 17–18; TEMP 97.4–98; O2SAT 94–100
[2024-03-04] MEDS: VANCOMYCIN 1GM/250ML KIT 200 ML IV SCH (03:56)
[2024-03-04 06:20] LABS: Basophils # (auto) 0.1 10 ^3/uL (0-0.2); Eosinophils # (auto) 0.1 10 ^3/uL (0-0.8); Eosinophils % (auto) 2.4 % (0.0-7.0); Hematocrit 32.1 % (41.0-53.0); Hemoglobin 10.7 g/dL (13.5-17.5); Lymphocytes # (auto) 1.7 10 ^3/uL (0.4-5.4); Lymphocytes % (auto) 30.4 % (10.0-50.0); Mean Corpuscular Hemoglobin 29.3 pg (28.0-32.0); Mean Corpuscular Hgb Conc. 33.3 g/dL (32.0-36.0); Mean Corpuscular Volume 87.9 fL (80.0-100.0); Monocytes # (auto) 0.5 10 ^3/uL (0-1.3); Monocytes % (auto) 8.4 % (0.0-12.0); Neutrophils # (auto) 3.3 10 ^3/uL (1.6-8.6); Neutrophils % (auto) 57.8 % (37.0-80.0); Platelet Count (auto) 415 10^3/uL (140-450); Red Blood Cells 3.66 10^6/uL (4.5-5.90); White Blood Cell 5.8 10^3/uL (4.4-10.8)
[2024-03-04 06:29] LABS: Anion Gap 11 (5-15); Carbon Dioxide 23 mmol/L (20-31); Chloride 107 mmol/L (98-107); Potassium 4.1 mmol/L (3.5-5.1); Sodium 141 mmol/L (136-145)
[2024-03-04 06:31] LABS: Calcium 9.1 mg/dL (8.7-10.4)
[2024-03-04 06:36] LABS: BUN/Creatinine Ratio 24.7 (10.0-20.0); Blood Urea Nitrogen 21 mg/dL (9-23); Glucose 90 mg/dL (74-106)
--- NOTE | 2024-03-04 11:18 | DVHPN2 ---
Progress Note - Dictate Date Seen: Mar 04, 2024 Has the PT tested + for MRSA If YES, has PT been informed?: No Medical Necessity Reason Pt with a Central, PICC or Fol: No vital signs Vital Sign Date Time Temp Pulse Resp B/P (MAP) Pulse Ox O2 Delivery O2 Flow Rate FiO2 03/04/24 08:30 97.4 83 17 94/58 (70) 97 97.4 03/04/24 08:10 Room Air* 0 21 Total Intake and Output 03/03/24 03/03/24 03/04/24 15:00 23:00 07:00 Intake Total 1040 ml 1950 ml 900 ml Output Total 1500 ml 3200 ml Balance 1040 ml 450 ml -2300 ml medications Current Medications Medications Dose Ordered Sig/Jacquelyn Route Start Time Stop Time Status Last Admin Dose Admin Vancomycin HCl 0 ml @ 0 mls/hr UD IV 02/20/24 15:15 Cancel Acetaminophen 325 mg Q4HP PRN PO 02/20/24 21:45 Ondansetron HCl 4 mg Q4HP PRN IV 02/20/24 21:45 Docusate Sodium 100 mg BIDPRN PRN PO 02/20/24 21:45 Zinc Sulfate 220 mg DAILY PO 02/21/24 10:00 03/04/24 09:09 220 MG Ascorbic Acid 500 mg BID PO 02/20/24 22:00 03/04/24 09:09 500 MG Multivitamins 1 tab DAILY PO 02/21/24 10:00 03/04/24 09:09 1 TAB Nitroglycerin 0.4 mg Q5MINP PRN SL 02/20/24 21:45 Sodium Chloride 1,000 ml @ 100 mls/hr Q10H IV 02/21/24 19:00 03/04/24 10:53 100 MLS/HR Pantoprazole Sodium 40 mg DAILY@0600 PO 02/22/24 11:30 03/04/24 06:18 40 MG Enoxaparin Sodium 40 mg DAILY SC 02/22/24 11:45 03/04/24 09:09 40 MG Vancomycin HCl 200 ml @ 200 mls/hr Q12H IV 02/25/24 00:00 Cancel Vancomycin HCl 0 ml @ 0 mls/hr UD IV 02/26/24 13:15 Ceftriaxone Sodium/Dextrose 50 ml @ 50 mls/hr DAILY IV 02/27/24 10:00 03/04/24 09:12 50 MLS/HR Enteral Nutritional Formula 27.5 gm BIDWM PO 03/01/24 18:00 03/04/24 08:00 27.5 GM Vancomycin HCl 200 ml @ 200 mls/hr Q10H IV 03/04/24 04:00 03/04/24 03:56 200 MLS/HR objective General Appearance: alert, no distress HEENT: EOMI, PERRLA, normal external inspect of ears, no icterus, no nasal drainage Neck: no carotid bruit, no jugular venous distention (JVD), no lymphadenopathy Chest: normal thorax Respiratory: clear to auscultation, normal air movement Cardiovascular: regular rate and rhythm, no diastolic murmur, no jugular venous distention (JVD), no rub, no systolic murmur Abdominal: soft, no hepatomegaly, no mass, no splenomegaly, no tenderness Genitourinary: grossly normal external Musculoskeletal: no joint tenderness, no swelling Extremities: normal pulses, no calf tenderness, no clubbing, no cyanosis, no edema Skin: no bruising, no jaundice, no rash Neurological: alert, No focal deficit laboratory and microbiology Laboratory Tests 03/04/24 05:13 Test 03/04/24 05:13 Range/Units Serum Glucose 90 74-106 mg/dL Problem List 1. Sepsis IV abx, ID Consult 2. Acute renal Failure Nephrology Consult, Monitoring 3. Elevated Liver Enzyme medication, monitoring 4. Decubitis ulcer to Coccyx Medication, monitoring 5. Homelessness [employer] Analyst Consult Assessment/Plan Subjective Patient is awake and alert. Objective Patient had his stitches and [place] drains removed yesterday. Patient is continuing daily wound care as well as IV antibiotics with vancomycin and Rocephin. Patient is status post I&D of his decubitus ulcer on 02/22/2024. Patient is pending placement at a shelter facility. He is homeless. Plan Continue current treatment. Continue physical therapy, wound care, and IV antibiotics. Plan for discharge once patient has a bed at the shelter facility. Dietary Evaluation Review Comments: 1. Continue current diet regime 2. Consider Velasquez BID (180kcal, 5g pro) Expected Outcomes/Goals: 1. Pt will consume >75% estimated needs within 3-5 days Plan discussed with: Patient, Other RAY MCGOVERN NP Mar 04, 2024 11:18
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
[2024-03-05] VITALS (10 sets, daily range): BP systolic 86–96; BP diastolic 55–64; PULSE 81–93; RESP 16–20; TEMP 97.3–98.1; O2SAT 94–99
[2024-03-05 08:14] LABS: Basophils # (auto) 0.1 10 ^3/uL (0-0.2); Basophils % (auto) 0.9 % (0.0-2.0); Eosinophils # (auto) 0.1 10 ^3/uL (0-0.8); Eosinophils % (auto) 2.4 % (0.0-7.0); Hematocrit 31.5 % (41.0-53.0); Hemoglobin 10.6 g/dL (13.5-17.5); Lymphocytes # (auto) 1.5 10 ^3/uL (0.4-5.4); Lymphocytes % (auto) 23.8 % (10.0-50.0); Mean Corpuscular Hemoglobin 29.6 pg (28.0-32.0); Mean Corpuscular Hgb Conc. 33.7 g/dL (32.0-36.0); Mean Corpuscular Volume 87.9 fL (80.0-100.0); Monocytes # (auto) 0.5 10 ^3/uL (0-1.3); Monocytes % (auto) 8.3 % (0.0-12.0); Neutrophils % (auto) 64.6 % (37.0-80.0); Platelet Count (auto) 449 10^3/uL (140-450); Red Blood Cells 3.58 10^6/uL (4.5-5.90); Red Cell Distribution Width 15.2 % (11.8-14.3); White Blood Cell 6.2 10^3/uL (4.4-10.8)
--- NOTE | 2024-03-05 13:28 | DVHPN2 ---
Progress Note - Dictate Date Seen: Mar 05, 2024 Has the PT tested + for MRSA If YES, has PT been informed?: No Medical Necessity Reason Pt with a Central, PICC or Fol: No vital signs Vital Sign Date Time Temp Pulse Resp B/P (MAP) Pulse Ox O2 Delivery O2 Flow Rate FiO2 03/05/24 13:00 97.9 87 19 86/55 (65) 98 97.9 03/05/24 08:30 Room Air* 0 21 Total Intake and Output 03/04/24 03/04/24 03/05/24 15:00 23:00 07:00 Intake Total 550 ml 1250 ml 3400 ml Output Total 950 ml 2400 ml Balance 550 ml 300 ml 1000 ml medications Current Medications Medications Dose Ordered Sig/Jacquelyn Route Start Time Stop Time Status Last Admin Dose Admin Vancomycin HCl 0 ml @ 0 mls/hr UD IV 02/20/24 15:15 Cancel Acetaminophen 325 mg Q4HP PRN PO 02/20/24 21:45 Ondansetron HCl 4 mg Q4HP PRN IV 02/20/24 21:45 Docusate Sodium 100 mg BIDPRN PRN PO 02/20/24 21:45 Zinc Sulfate 220 mg DAILY PO 02/21/24 10:00 03/05/24 09:07 220 MG Ascorbic Acid 500 mg BID PO 02/20/24 22:00 03/05/24 09:07 500 MG Multivitamins 1 tab DAILY PO 02/21/24 10:00 03/05/24 09:07 1 TAB Nitroglycerin 0.4 mg Q5MINP PRN SL 02/20/24 21:45 Sodium Chloride 1,000 ml @ 100 mls/hr Q10H IV 02/21/24 19:00 03/05/24 06:01 100 MLS/HR Pantoprazole Sodium 40 mg DAILY@0600 PO 02/22/24 11:30 03/05/24 06:01 40 MG Vancomycin HCl 200 ml @ 200 mls/hr Q12H IV 02/25/24 00:00 Cancel Vancomycin HCl 0 ml @ 0 mls/hr UD IV 02/26/24 13:15 Ceftriaxone Sodium/Dextrose 50 ml @ 50 mls/hr DAILY IV 02/27/24 10:00 03/05/24 09:07 50 MLS/HR Enteral Nutritional Formula 27.5 gm BIDWM PO 03/01/24 18:00 03/04/24 18:00 27.5 GM Vancomycin HCl 200 ml @ 200 mls/hr Q10H IV 03/04/24 04:00 03/05/24 12:07 200 MLS/HR objective General Appearance: alert, no distress HEENT: EOMI, PERRLA, normal external inspect of ears, no icterus, no nasal drainage Neck: no carotid bruit, no jugular venous distention (JVD), no lymphadenopathy Chest: normal thorax Respiratory: clear to auscultation, normal air movement Cardiovascular: regular rate and rhythm, no diastolic murmur, no jugular venous distention (JVD), no rub, no systolic murmur Abdominal: soft, no hepatomegaly, no mass, no splenomegaly, no tenderness Genitourinary: grossly normal external Musculoskeletal: no joint tenderness, no swelling Extremities: normal pulses, no calf tenderness, no clubbing, no cyanosis, no edema Skin: no bruising, no jaundice, no rash Neurological: alert, No focal deficit laboratory and microbiology Laboratory Tests 03/05/24 07:23 03/04/24 05:13 Test 03/04/24 05:13 Range/Units Serum Glucose 90 74-106 mg/dL Problem List 1. Sepsis IV abx, ID Consult 2. Acute renal Failure Nephrology Consult, Monitoring 3. Elevated Liver Enzyme medication, monitoring 4. Decubitis ulcer to Coccyx Medication, monitoring 5. Homelessness [employer] Education [employer] Instructor Consult Assessment/Plan Subjective Patient is awake and alert. Objective Patient had her sutures and [place] drains removed. Has been ambulating with physical therapy and getting daily wound care. Still waiting on placement at [facility] facility. Patient is homeless and cannot care for his wounds to his coccyx area. Plan Continue current treatment. Awaiting placement at [facility] facility. Continue antibiotics as recommended by ID. Dietary Evaluation Review Comments: 1. Continue current diet regime 2. Consider Velasquez BID (180kcal, 5g pro) Expected Outcomes/Goals: 1. Pt will consume >75% estimated needs within 3-5 days Plan discussed with: Patient, Other RAY MCGOVERN NP Mar 05, 2024 13:28
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
[2024-03-06] VITALS (9 sets, daily range): BP systolic 85–105; BP diastolic 54–72; PULSE 82–100; RESP 16–22; TEMP 97.7–98.3; O2SAT 98–99
[2024-03-06] MEDS: VANCOMYCIN 1.25GM/250ML 250 ML IV SCH (00:14)
--- NOTE | 2024-03-06 09:17 | DVHPN2 ---
Progress Note - Dictate Date Seen: Mar 06, 2024 Has the PT tested + for MRSA If YES, has PT been informed?: No Medical Necessity Reason Pt with a Central, PICC or Fol: No vital signs Vital Sign Date Time Temp Pulse Resp B/P (MAP) Pulse Ox O2 Delivery O2 Flow Rate FiO2 03/06/24 08:47 98.0 86 20 94/54 (67) 99 98.0 03/06/24 08:00 Room Air* 0 21 Total Intake and Output 03/05/24 03/05/24 03/06/24 15:00 23:00 07:00 Intake Total 250 ml 1300 ml 400 ml Output Total 750 ml 1825 ml 1800 ml Balance -500 ml -525 ml -1400 ml medications Current Medications Medications Dose Ordered Sig/Jacquelyn Route Start Time Stop Time Status Last Admin Dose Admin Vancomycin HCl 0 ml @ 0 mls/hr UD IV 02/20/24 15:15 Cancel Acetaminophen 325 mg Q4HP PRN PO 02/20/24 21:45 Ondansetron HCl 4 mg Q4HP PRN IV 02/20/24 21:45 Docusate Sodium 100 mg BIDPRN PRN PO 02/20/24 21:45 Zinc Sulfate 220 mg DAILY PO 02/21/24 10:00 03/06/24 09:09 220 MG Ascorbic Acid 500 mg BID PO 02/20/24 22:00 03/06/24 09:09 500 MG Multivitamins 1 tab DAILY PO 02/21/24 10:00 03/06/24 09:09 1 TAB Nitroglycerin 0.4 mg Q5MINP PRN SL 02/20/24 21:45 Sodium Chloride 1,000 ml @ 100 mls/hr Q10H IV 02/21/24 19:00 03/06/24 03:00 100 MLS/HR Pantoprazole Sodium 40 mg DAILY@0600 PO 02/22/24 11:30 03/06/24 05:20 40 MG Vancomycin HCl 200 ml @ 200 mls/hr Q12H IV 02/25/24 00:00 Cancel Vancomycin HCl 0 ml @ 0 mls/hr UD IV 02/26/24 13:15 Ceftriaxone Sodium/Dextrose 50 ml @ 50 mls/hr DAILY IV 02/27/24 10:00 03/06/24 09:09 50 MLS/HR Enteral Nutritional Formula 27.5 gm BIDWM PO 03/01/24 18:00 03/04/24 18:00 27.5 GM Vancomycin HCl 250 ml @ 200 mls/hr Q12H IV 03/06/24 00:00 03/06/24 00:14 200 MLS/HR objective General Appearance: alert, no distress HEENT: EOMI, PERRLA, normal external inspect of ears, no icterus, no nasal drainage Neck: no carotid bruit, no jugular venous distention (JVD), no lymphadenopathy Chest: normal thorax Respiratory: clear to auscultation, normal air movement Cardiovascular: regular rate and rhythm, no diastolic murmur, no jugular venous distention (JVD), no rub, no systolic murmur Abdominal: soft, no hepatomegaly, no mass, no splenomegaly, no tenderness Genitourinary: grossly normal external Musculoskeletal: no joint tenderness, no swelling Extremities: normal pulses, no calf tenderness, no clubbing, no cyanosis, no edema Skin: no bruising, no jaundice, no rash Neurological: alert, No focal deficit laboratory and microbiology Laboratory Tests 03/05/24 07:23 03/04/24 05:13 Test 03/04/24 05:13 Range/Units Serum Glucose 90 74-106 mg/dL Problem List 1. Sepsis IV abx, ID Consult 2. Acute renal Failure Nephrology Consult, Monitoring 3. Elevated Liver Enzyme medication, monitoring 4. Decubitis ulcer to Coccyx Medication, monitoring 5. 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 Objective: The patient is reportedly homeless. Patient was admitted for generalized weakness and sepsis. Patient is status post debridement of his coccyx. Matthew drains and stitches were removed. Patient has been working with physical therapy. Plan: Continue current treatment. Continue IV antibiotic. Continue wound care to coccyx. Dietary Evaluation Review Comments: 1. Continue current diet regime 2. Consider Velasquez BID (180kcal, 5g pro) Expected Outcomes/Goals: 1. Pt will consume >75% estimated needs within 3-5 days Plan discussed with: Patient, Other RAY MCGOVERN NP Mar 06, 2024 09:17
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
[2024-03-07] VITALS (9 sets, daily range): BP systolic 86–104; BP diastolic 50–67; PULSE 88–93; RESP 16–20; TEMP 97.7–98.4; O2SAT 97–100
--- NOTE | 2024-03-07 09:33 | DVHPN2 ---
Progress Note - Dictate Date Seen: Mar 07, 2024 Has the PT tested + for MRSA If YES, has PT been informed?: No Medical Necessity Reason Pt with a Central, PICC or Fol: No vital signs Vital Sign Date Time Temp Pulse Resp B/P (MAP) Pulse Ox O2 Delivery O2 Flow Rate FiO2 03/07/24 08:30 98.4 90 20 99/58 (72) 99 98.4 03/06/24 20:00 Room Air* 0 21 Total Intake and Output 03/06/24 03/06/24 03/07/24 15:00 23:00 07:00 Intake Total 50 ml 1040 ml 1200 ml Output Total 1350 ml 1900 ml Balance 50 ml -310 ml -700 ml medications Current Medications Medications Dose Ordered Sig/Jacquelyn Route Start Time Stop Time Status Last Admin Dose Admin Vancomycin HCl 0 ml @ 0 mls/hr UD IV 02/20/24 15:15 Cancel Acetaminophen 325 mg Q4HP PRN PO 02/20/24 21:45 Ondansetron HCl 4 mg Q4HP PRN IV 02/20/24 21:45 Docusate Sodium 100 mg BIDPRN PRN PO 02/20/24 21:45 Zinc Sulfate 220 mg DAILY PO 02/21/24 10:00 03/06/24 09:09 220 MG Ascorbic Acid 500 mg BID PO 02/20/24 22:00 03/06/24 21:26 500 MG Multivitamins 1 tab DAILY PO 02/21/24 10:00 03/06/24 09:09 1 TAB Nitroglycerin 0.4 mg Q5MINP PRN SL 02/20/24 21:45 Sodium Chloride 1,000 ml @ 100 mls/hr Q10H IV 02/21/24 19:00 03/07/24 05:39 100 MLS/HR Pantoprazole Sodium 40 mg DAILY@0600 PO 02/22/24 11:30 03/07/24 05:39 40 MG Vancomycin HCl 200 ml @ 200 mls/hr Q12H IV 02/25/24 00:00 Cancel Vancomycin HCl 0 ml @ 0 mls/hr UD IV 02/26/24 13:15 Ceftriaxone Sodium/Dextrose 50 ml @ 50 mls/hr DAILY IV 02/27/24 10:00 03/06/24 09:09 50 MLS/HR Enteral Nutritional Formula 27.5 gm BIDWM PO 03/01/24 18:00 03/06/24 10:20 27.5 GM Vancomycin HCl 250 ml @ 200 mls/hr Q12H IV 03/06/24 00:00 03/07/24 00:00 200 MLS/HR objective General Appearance: alert, no distress HEENT: EOMI, PERRLA, normal external inspect of ears, no icterus, no nasal drainage Neck: no carotid bruit, no jugular venous distention (JVD), no lymphadenopathy Chest: normal thorax Respiratory: clear to auscultation, normal air movement Cardiovascular: regular rate and rhythm, no diastolic murmur, no jugular venous distention (JVD), no rub, no systolic murmur Abdominal: soft, no hepatomegaly, no mass, no splenomegaly, no tenderness Genitourinary: grossly normal external Musculoskeletal: no joint tenderness, no swelling Extremities: normal pulses, no calf tenderness, no clubbing, no cyanosis, no edema Skin: no bruising, no jaundice, no rash Neurological: alert, No focal deficit laboratory and microbiology Laboratory Tests 03/05/24 07:23 03/04/24 05:13 Test 03/04/24 05:13 Range/Units Serum Glucose 90 74-106 mg/dL Problem List 1. Sepsis IV abx, ID Consult 2. Acute renal Failure Nephrology Consult, Monitoring 3. Elevated Liver Enzyme medication, monitoring 4. Decubitis ulcer to Coccyx Medication, monitoring 5. 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 Feliciano. Patient was seen by infectious disease and is currently receiving IV antibiotics with vancomycin and Rocephin. Patient is homeless and is needing a retirement facility for rehab and wound care along with antibiotics. Plan Continue current treatment. director water and waste services is working on placement at a retirement facility. Dietary Evaluation Review Comments: 1. Continue current diet regime 2. Consider Velasquez BID (180kcal, 5g pro) Expected Outcomes/Goals: 1. Pt will consume >75% estimated needs within 3-5 days Plan discussed with: Patient, Other RAY MCGOVERN [employer] MANAGER Mar 07, 2024 09:33
[2024-03-07] MEDS: ACETAMINOPHEN 325 MG TAB PO PRN (20:52)
[2024-03-08] VITALS (9 sets, daily range): BP systolic 91–104; BP diastolic 54–63; PULSE 63–93; RESP 15–19; TEMP 97.4–98.5; O2SAT 92–100
[2024-03-08] MEDS: VANCOMYCIN 1.25GM/250ML 250 ML IV SCH (05:10)
[2024-03-08 06:18] LABS: Basophils # (auto) 0.1 10 ^3/uL (0-0.2); Basophils % (auto) 0.8 % (0.0-2.0); Eosinophils # (auto) 0.3 10 ^3/uL (0-0.8); Eosinophils % (auto) 3.8 % (0.0-7.0); Hematocrit 33.7 % (41.0-53.0); Lymphocytes # (auto) 1.8 10 ^3/uL (0.4-5.4); Lymphocytes % (auto) 27.8 % (10.0-50.0); Mean Corpuscular Hemoglobin 28.8 pg (28.0-32.0); Mean Corpuscular Hgb Conc. 32.6 g/dL (32.0-36.0); Mean Corpuscular Volume 88.5 fL (80.0-100.0); Monocytes # (auto) 0.6 10 ^3/uL (0-1.3); Monocytes % (auto) 9.2 % (0.0-12.0); Neutrophils # (auto) 3.8 10 ^3/uL (1.6-8.6); Neutrophils % (auto) 58.4 % (37.0-80.0); Nucleated Red Blood Cells % 0.1 %; Platelet Count (auto) 396 10^3/uL (140-450); Red Blood Cells 3.81 10^6/uL (4.5-5.90); Red Cell Distribution Width 15.4 % (11.8-14.3); White Blood Cell 6.6 10^3/uL (4.4-10.8)
[2024-03-08 06:29] LABS: Anion Gap 7 (5-15); Carbon Dioxide 27 mmol/L (20-31); Chloride 106 mmol/L (98-107); Potassium 4.1 mmol/L (3.5-5.1); Sodium 140 mmol/L (136-145)
[2024-03-08 06:35] LABS: BUN/Creatinine Ratio 23.5 (10.0-20.0); Blood Urea Nitrogen 20 mg/dL (9-23); Glucose 94 mg/dL (74-106)
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
--- NOTE | 2024-03-08 21:08 | DVHPN2 ---
Progress Note Date Seen: Mar 08, 2024 Has the PT tested + for MRSA If YES, has PT been informed?: No Medical Necessity Reason Pt with a Central, PICC or Fol: No Subjective Review of Systems: CVS:Normal, RESPIRATORY:Normal, :Normal, NEURO:Normal Objective vital signs Vital Sign Date Time Temp Pulse Resp B/P (MAP) Pulse Ox O2 Delivery O2 Flow Rate FiO2 03/08/24 16:50 97.6 80 19 99/58 (72) 100 97.6 03/08/24 08:00 Room Air* 0 21 Total Intake and Output 03/07/24 03/07/24 03/08/24 15:00 23:00 07:00 Intake Total 50 ml 2490 ml 900 ml Output Total 1400 ml 1975 ml Balance 50 ml 1090 ml -1075 ml medications Current Medications Medications Dose Ordered Sig/Jacquelyn Route Start Time Stop Time Status Last Admin Dose Admin Vancomycin HCl 0 ml @ 0 mls/hr UD IV 02/20/24 15:15 Cancel Acetaminophen 325 mg Q4HP PRN PO 02/20/24 21:45 03/07/24 20:52 325 MG Ondansetron HCl 4 mg Q4HP PRN IV 02/20/24 21:45 Docusate Sodium 100 mg BIDPRN PRN PO 02/20/24 21:45 Zinc Sulfate 220 mg DAILY PO 02/21/24 10:00 03/08/24 09:58 220 MG Ascorbic Acid 500 mg BID PO 02/20/24 22:00 03/08/24 21:05 500 MG Multivitamins 1 tab DAILY PO 02/21/24 10:00 03/08/24 09:58 1 TAB Nitroglycerin 0.4 mg Q5MINP PRN SL 02/20/24 21:45 Sodium Chloride 1,000 ml @ 100 mls/hr Q10H IV 02/21/24 19:00 03/08/24 09:58 100 MLS/HR Pantoprazole Sodium 40 mg DAILY@0600 PO 02/22/24 11:30 03/08/24 05:17 40 MG Vancomycin HCl 200 ml @ 200 mls/hr Q12H IV 02/25/24 00:00 Cancel Ceftriaxone Sodium/Dextrose 50 ml @ 50 mls/hr DAILY IV 02/27/24 10:00 03/08/24 09:58 50 MLS/HR Enteral Nutritional Formula 27.5 gm BIDWM PO 03/01/24 18:00 03/08/24 17:35 27.5 GM Vancomycin HCl 250 ml @ 200 mls/hr Q16H IV 03/08/24 05:00 03/08/24 21:04 200 MLS/HR Examination: GENERAL:Normal, LUNGS:Normal, CVS:Normal, ABDOMEN:Normal, SKIN:Abnormal, NEURO:Normal laboratory and microbiology Laboratory Tests 03/08/24 05:08 Test 03/08/24 05:08 Range/Units Serum Glucose 94 74-106 mg/dL Microbiology Date/Time Source Procedure Growth Status 02/22/24 18:03 Sacrum Gram Stain - Final Complete 02/22/24 18:03 Wound Culture - Final Methicillin Resistant S.aureus Complete 02/20/24 15:00 Blood Blood Culture - Final NO GROWTH AFTER 5 DAYS OF INCUBATION. Complete Labs and/or images reviewed: Labs reviewed by me, Image(s) reviewed by me Problem List/Assessment/Plan Problem List/Assessment/Plan 1. Sepsis IV abx, ID Consult 2. Acute renal Failure Nephrology Consult, Monitoring 3. Elevated Liver Enzyme medication, monitoring 4. Decubitis ulcer to Coccyx Medication, monitoring 5. Homelessness Refinery Superintendent Consult Assessment/Plan Subjective Patient is awake and alert Objective Patient is status post I&D of decubitus ulcer to coccyx on 02/22/[address] Feliciano. Patient was seen by infectious disease and is currently receiving IV antibiotics with vancomycin and Rocephin. Patient is homeless and is needing a halfway facility for rehab and wound care along with antibiotics. Plan Continue current treatment. visitor services assistant is working on placement at a halfway facility. Plan discussed with: Patient Dietary Evaluation Review Comments: 1. Continue current diet regime 2. Consider Velasquez BID (180kcal, 5g pro) Expected Outcomes/Goals: 1. Pt will consume >75% estimated needs within 3-5 days Date of Service: Mar 08, 2024 Billing Provider: AMAURY DEE MD Common Visit Codes: [id number] INP/OBS CARE (MOD) YELENA BRANDON Mar 08, 2024 21:08
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
[2024-03-09] VITALS (8 sets, daily range): BP systolic 91–110; BP diastolic 50–59; PULSE 84–98; RESP 14–20; TEMP 97.3–98.4; O2SAT 97–99
[2024-03-09 06:24] LABS: Basophils # (auto) 0.1 10 ^3/uL (0-0.2); Basophils % (auto) 1.1 % (0.0-2.0); Eosinophils # (auto) 0.2 10 ^3/uL (0-0.8); Eosinophils % (auto) 3.9 % (0.0-7.0); Hematocrit 32.2 % (41.0-53.0); Hemoglobin 10.9 g/dL (13.5-17.5); Lymphocytes # (auto) 1.8 10 ^3/uL (0.4-5.4); Lymphocytes % (auto) 28.9 % (10.0-50.0); Mean Corpuscular Hemoglobin 29.8 pg (28.0-32.0); Mean Corpuscular Hgb Conc. 33.8 g/dL (32.0-36.0); Mean Corpuscular Volume 88.1 fL (80.0-100.0); Monocytes # (auto) 0.6 10 ^3/uL (0-1.3); Monocytes % (auto) 9.1 % (0.0-12.0); Neutrophils # (auto) 3.6 10 ^3/uL (1.6-8.6); Nucleated Red Blood Cells % 0.1 %; Platelet Count (auto) 370 10^3/uL (140-450); Red Blood Cells 3.66 10^6/uL (4.5-5.90); Red Cell Distribution Width 15.7 % (11.8-14.3); White Blood Cell 6.3 10^3/uL (4.4-10.8)
--- NOTE | 2024-03-09 07:27 | DVHPN2 ---
Progress Note Date Seen: Mar 09, 2024 Has the PT tested + for MRSA If YES, has PT been informed?: No Medical Necessity Reason Pt with a Central, PICC or Fol: No Subjective Review of Systems Pt feels well. Has no complaints. Objective vital signs Vital Sign Date Time Temp Pulse Resp B/P (MAP) Pulse Ox O2 Delivery O2 Flow Rate FiO2 03/09/24 05:00 97.5 93 18 110/55 (73) 99 97.5 03/08/24 20:00 Room Air* 0 21 Total Intake and Output 03/08/24 03/08/24 03/09/24 15:00 23:00 07:00 Intake Total 250 ml 2120 ml 980 ml Output Total 1500 ml 1400 ml Balance 250 ml 620 ml -420 ml medications Current Medications Medications Dose Ordered Sig/Jacquelyn Route Start Time Stop Time Status Last Admin Dose Admin Vancomycin HCl 0 ml @ 0 mls/hr UD IV 02/20/24 15:15 Cancel Acetaminophen 325 mg Q4HP PRN PO 02/20/24 21:45 03/07/24 20:52 325 MG Ondansetron HCl 4 mg Q4HP PRN IV 02/20/24 21:45 Docusate Sodium 100 mg BIDPRN PRN PO 02/20/24 21:45 Zinc Sulfate 220 mg DAILY PO 02/21/24 10:00 03/08/24 09:58 220 MG Ascorbic Acid 500 mg BID PO 02/20/24 22:00 03/08/24 21:05 500 MG Multivitamins 1 tab DAILY PO 02/21/24 10:00 03/08/24 09:58 1 TAB Nitroglycerin 0.4 mg Q5MINP PRN SL 02/20/24 21:45 Sodium Chloride 1,000 ml @ 100 mls/hr Q10H IV 02/21/24 19:00 03/09/24 00:47 100 MLS/HR Pantoprazole Sodium 40 mg DAILY@0600 PO 02/22/24 11:30 03/09/24 05:50 40 MG Vancomycin HCl 200 ml @ 200 mls/hr Q12H IV 02/25/24 00:00 Cancel Ceftriaxone Sodium/Dextrose 50 ml @ 50 mls/hr DAILY IV 02/27/24 10:00 03/08/24 09:58 50 MLS/HR Enteral Nutritional Formula 27.5 gm BIDWM PO 03/01/24 18:00 03/08/24 17:35 27.5 GM Vancomycin HCl 250 ml @ 200 mls/hr Q16H IV 03/08/24 05:00 03/08/24 21:04 200 MLS/HR Examination Right buttock wound nearly healed. No erythema or tenderness. laboratory and microbiology Laboratory Tests 03/09/24 05:22 03/08/24 05:08 Test 03/08/24 05:08 Range/Units Serum Glucose 94 74-106 mg/dL Microbiology Date/Time Source Procedure Growth Status 02/22/24 18:03 Sacrum Gram Stain - Final Complete 02/22/24 18:03 Wound Culture - Final Methicillin Resistant S.aureus Complete 02/20/24 15:00 Blood Blood Culture - Final NO GROWTH AFTER 5 DAYS OF INCUBATION. Complete Problem List/Assessment/Plan Problem List/Assessment/Plan Continue IV Abx per ID. Resume diet. DVT and GI prophylaxis. May D/C from surgical standpoint when medically stable. F/U with me as outpt. May shower. Change dressings daily and as needed. Will sign off. Please call, if needed. Plan discussed with: Patient Dietary Evaluation Review Comments: 1. Continue current diet regime 2. Consider Velasquez BID (180kcal, 5g pro) Expected Outcomes/Goals: 1. Pt will consume >75% estimated needs within 3-5 days BHUPENDRA SCHROEDER MD Mar 09, 2024 07:27
--- NOTE | 2024-03-09 17:18 | DVHPN2 ---
Progress Note Date Seen: Mar 09, 2024 Has the PT tested + for MRSA If YES, has PT been informed?: No Medical Necessity Reason Pt with a Central, PICC or Fol: No Subjective Review of Systems: HEENT:Normal, RESPIRATORY:Normal Objective vital signs Vital Sign Date Time Temp Pulse Resp B/P (MAP) Pulse Ox O2 Delivery O2 Flow Rate FiO2 03/09/24 13:00 98.4 84 18 91/59 (70) 98 98.4 03/09/24 08:00 Room Air* 0 21 Total Intake and Output 03/08/24 03/08/24 03/09/24 15:00 23:00 07:00 Intake Total 250 ml 2120 ml 980 ml Output Total 1500 ml 1400 ml Balance 250 ml 620 ml -420 ml medications Current Medications Medications Dose Ordered Sig/Jacquelyn Route Start Time Stop Time Status Last Admin Dose Admin Vancomycin HCl 0 ml @ 0 mls/hr UD IV 02/20/24 15:15 Cancel Acetaminophen 325 mg Q4HP PRN PO 02/20/24 21:45 03/07/24 20:52 325 MG Ondansetron HCl 4 mg Q4HP PRN IV 02/20/24 21:45 Docusate Sodium 100 mg BIDPRN PRN PO 02/20/24 21:45 Zinc Sulfate 220 mg DAILY PO 02/21/24 10:00 03/09/24 10:19 220 MG Ascorbic Acid 500 mg BID PO 02/20/24 22:00 03/09/24 10:19 500 MG Multivitamins 1 tab DAILY PO 02/21/24 10:00 03/09/24 10:19 1 TAB Nitroglycerin 0.4 mg Q5MINP PRN SL 02/20/24 21:45 Sodium Chloride 1,000 ml @ 100 mls/hr Q10H IV 02/21/24 19:00 03/09/24 10:19 100 MLS/HR Pantoprazole Sodium 40 mg DAILY@0600 PO 02/22/24 11:30 03/09/24 05:50 40 MG Vancomycin HCl 200 ml @ 200 mls/hr Q12H IV 02/25/24 00:00 Cancel Enteral Nutritional Formula 27.5 gm BIDWM PO 03/01/24 18:00 03/09/24 10:20 27.5 GM Vancomycin HCl 250 ml @ 200 mls/hr Q18H IV 03/09/24 20:00 Examination: GENERAL:Normal, NECK:Normal, LUNGS:Normal, CVS:Normal, ABDOMEN:Normal, SKIN:Normal, NEURO:Normal laboratory and microbiology Laboratory Tests 03/09/24 05:22 03/08/24 05:08 Test 03/08/24 05:08 Range/Units Serum Glucose 94 74-106 mg/dL Microbiology Date/Time Source Procedure Growth Status 02/22/24 18:03 Sacrum Gram Stain - Final Complete 02/22/24 18:03 Wound Culture - Final Methicillin Resistant S.aureus Complete 02/20/24 15:00 Blood Blood Culture - Final NO GROWTH AFTER 5 DAYS OF INCUBATION. Complete Labs and/or images reviewed: Labs reviewed by me, Image(s) reviewed by me Problem List/Assessment/Plan Problem List/Assessment/Plan 1. Sepsis IV abx, ID Consult 2. Acute renal Failure Nephrology Consult, Monitoring 3. Elevated Liver Enzyme medication, monitoring 4. Decubitis ulcer to Coccyx Medication, monitoring 5. Homelessness Games Manager Consult Assessment/Plan Subjective Patient is awake and alert Objective Patient is status post I&D of decubitus ulcer to coccyx on 02/22/[address] Feliciano. Patient was seen by infectious disease and is currently receiving IV antibiotics with vancomycin and Rocephin. Patient is homeless and is needing a [facility] facility for rehab and wound care along with antibiotics. Plan Continue current treatment. child and family services specialist is working on placement at a [facility] facility. Plan discussed with: Patient Dietary Evaluation Review Comments: 1. Continue current diet regime 2. Consider Velasquez BID (180kcal, 5g pro) Expected Outcomes/Goals: 1. Pt will consume >75% estimated needs within 3-5 days Date of Service: Mar 09, 2024 Billing Provider: AMAURY DEE MD Common Visit Codes: [id number] INP/OBS CARE (MOD) YELENA BRANDON TREATER HELPER Mar 09, 2024 17:18
[2024-03-09] MEDS: VANCOMYCIN 1.25GM/250ML 250 ML IV SCH (20:15)
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
[2024-03-10] VITALS (8 sets, daily range): BP systolic 84–147; BP diastolic 47–76; PULSE 77–89; RESP 15–20; TEMP 97.8–98.6; O2SAT 73–100
[2024-03-10 06:13] LABS: Basophils # (auto) 0.1 10 ^3/uL (0-0.2); Basophils % (auto) 0.9 % (0.0-2.0); Eosinophils # (auto) 0.3 10 ^3/uL (0-0.8); Hematocrit 33.2 % (41.0-53.0); Hemoglobin 11.2 g/dL (13.5-17.5); Lymphocytes # (auto) 1.7 10 ^3/uL (0.4-5.4); Lymphocytes % (auto) 26.5 % (10.0-50.0); Mean Corpuscular Hemoglobin 29.8 pg (28.0-32.0); Mean Corpuscular Hgb Conc. 33.8 g/dL (32.0-36.0); Mean Corpuscular Volume 88.1 fL (80.0-100.0); Monocytes # (auto) 0.6 10 ^3/uL (0-1.3); Monocytes % (auto) 9.3 % (0.0-12.0); Neutrophils # (auto) 3.8 10 ^3/uL (1.6-8.6); Neutrophils % (auto) 59.3 % (37.0-80.0); Platelet Count (auto) 397 10^3/uL (140-450); Red Blood Cells 3.77 10^6/uL (4.5-5.90); Red Cell Distribution Width 15.9 % (11.8-14.3); White Blood Cell 6.5 10^3/uL (4.4-10.8)
--- NOTE | 2024-03-10 18:01 | DVHPN2 ---
Progress Note Date Seen: Mar 10, 2024 Has the PT tested + for MRSA If YES, has PT been informed?: No Medical Necessity Reason Pt with a Central, PICC or Fol: No Subjective Patient reports: No new complaints Objective vital signs Vital Sign Date Time Temp Pulse Resp B/P (MAP) Pulse Ox O2 Delivery O2 Flow Rate FiO2 03/10/24 17:00 97.8 82 18 100/61 (74) 100 97.8 03/10/24 08:00 Room Air* 0 21 Total Intake and Output 03/09/24 03/09/24 03/10/24 15:00 23:00 07:00 Intake Total 400 ml 2950 ml 900 ml Output Total 1602 ml 1300 ml Balance 400 ml 1348 ml -400 ml medications Current Medications Medications Dose Ordered Sig/Jacquelyn Route Start Time Stop Time Status Last Admin Dose Admin Vancomycin HCl 0 ml @ 0 mls/hr UD IV 02/20/24 15:15 Cancel Acetaminophen 325 mg Q4HP PRN PO 02/20/24 21:45 03/07/24 20:52 325 MG Ondansetron HCl 4 mg Q4HP PRN IV 02/20/24 21:45 Docusate Sodium 100 mg BIDPRN PRN PO 02/20/24 21:45 Zinc Sulfate 220 mg DAILY PO 02/21/24 10:00 03/10/24 10:21 220 MG Ascorbic Acid 500 mg BID PO 02/20/24 22:00 03/10/24 10:20 500 MG Multivitamins 1 tab DAILY PO 02/21/24 10:00 03/10/24 10:20 1 TAB Nitroglycerin 0.4 mg Q5MINP PRN SL 02/20/24 21:45 Sodium Chloride 1,000 ml @ 100 mls/hr Q10H IV 02/21/24 19:00 03/10/24 17:46 100 MLS/HR Pantoprazole Sodium 40 mg DAILY@0600 PO 02/22/24 11:30 03/10/24 05:52 40 MG Vancomycin HCl 200 ml @ 200 mls/hr Q12H IV 02/25/24 00:00 Cancel Enteral Nutritional Formula 27.5 gm BIDWM PO 03/01/24 18:00 03/10/24 08:00 27.5 GM Vancomycin HCl 250 ml @ 200 mls/hr Q18H IV 03/09/24 20:00 12/8/24 15:11 200 MLS/HR Examination: GENERAL:Normal, LUNGS:Normal, CVS:Normal, ABDOMEN:Normal, SKIN:Normal, NEURO:Normal laboratory and microbiology Laboratory Tests 03/10/24 04:53 03/08/24 05:08 Test 03/08/24 05:08 Range/Units Serum Glucose 94 74-106 mg/dL Microbiology Date/Time Source Procedure Growth Status 02/22/24 18:03 Sacrum Gram Stain - Final Complete 02/22/24 18:03 Wound Culture - Final Methicillin Resistant S.aureus Complete 02/20/24 15:00 Blood Blood Culture - Final NO GROWTH AFTER 5 DAYS OF INCUBATION. Complete Problem List/Assessment/Plan Problem List/Assessment/Plan 1. Sepsis IV abx, ID Consult 2. Acute renal Failure Nephrology Consult, Monitoring 3. Elevated Liver Enzyme medication, monitoring 4. Decubitis ulcer to Coccyx Medication, monitoring 5. 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 Feliciano. Patient was seen by infectious disease and is currently receiving IV antibiotics with vancomycin and Rocephin. Patient is homeless and is needing a long-term facility for rehab and wound care along with antibiotics. Plan Continue current treatment. family services coordinator is working on placement at a long-term facility. Plan discussed with: Patient Dietary Evaluation Review Comments: 1. Continue current diet regime 2. Consider Velasquez BID (180kcal, 5g pro) Expected Outcomes/Goals: 1. Pt will consume >75% estimated needs within 3-5 days Date of Service: Mar 10, 2024 Billing Provider: AMAURY DEE MD Common Visit Codes: [id number] INP/OBS CARE (MOD) YELENA BRANDON COMMUNITY OUTREACH DIRECTOR Mar 10, 2024 18:01
[2024-03-11] VITALS (8 sets, daily range): BP systolic 88–98; BP diastolic 57–68; PULSE 75–103; RESP 16–20; TEMP 97.1–98.5; O2SAT 97–100
--- NOTE | 2024-03-11 15:01 | DVHPN2 ---
Progress Note - Dictate Date Seen: Mar 11, 2024 Has the PT tested + for MRSA If YES, has PT been informed?: No Medical Necessity Reason Pt with a Central, PICC or Fol: No vital signs Vital Sign Date Time Temp Pulse Resp B/P (MAP) Pulse Ox O2 Delivery O2 Flow Rate FiO2 03/11/24 13:00 97.5 87 20 93/61 (72) 99 97.5 03/10/24 20:00 Room Air* 0 21 Total Intake and Output 03/10/24 03/10/24 03/11/24 15:00 23:00 07:00 Intake Total 200 ml 2440 ml 2310 ml Output Total 2100 ml 825 ml Balance 200 ml 340 ml 1485 ml medications Current Medications Medications Dose Ordered Sig/Jacquelyn Route Start Time Stop Time Status Last Admin Dose Admin Vancomycin HCl 0 ml @ 0 mls/hr UD IV 02/20/24 15:15 Cancel Acetaminophen 325 mg Q4HP PRN PO 02/20/24 21:45 03/07/24 20:52 325 MG Ondansetron HCl 4 mg Q4HP PRN IV 02/20/24 21:45 Docusate Sodium 100 mg BIDPRN PRN PO 02/20/24 21:45 Zinc Sulfate 220 mg DAILY PO 02/21/24 10:00 03/11/24 09:58 220 MG Ascorbic Acid 500 mg BID PO 02/20/24 22:00 03/11/24 09:58 500 MG Multivitamins 1 tab DAILY PO 02/21/24 10:00 03/11/24 09:58 1 TAB Nitroglycerin 0.4 mg Q5MINP PRN SL 02/20/24 21:45 Sodium Chloride 1,000 ml @ 100 mls/hr Q10H IV 02/21/24 19:00 03/11/24 06:18 100 MLS/HR Pantoprazole Sodium 40 mg DAILY@0600 PO 02/22/24 11:30 03/11/24 05:19 40 MG Vancomycin HCl 200 ml @ 200 mls/hr Q12H IV 02/25/24 00:00 Cancel Enteral Nutritional Formula 27.5 gm BIDWM PO 03/01/24 18:00 03/11/24 08:35 27.5 GM Vancomycin HCl 250 ml @ 200 mls/hr Q18H IV 03/09/24 20:00 03/11/24 07:56 200 MLS/HR objective General Appearance: alert, no distress HEENT: EOMI, PERRLA, normal external inspect of ears, no icterus, no nasal drainage Neck: no carotid bruit, no jugular venous distention (JVD), no lymphadenopathy Chest: normal thorax Respiratory: clear to auscultation, normal air movement Cardiovascular: regular rate and rhythm, no diastolic murmur, no jugular venous distention (JVD), no rub, no systolic murmur Abdominal: soft, no hepatomegaly, no mass, no splenomegaly, no tenderness Genitourinary: grossly normal external Musculoskeletal: no joint tenderness, no swelling Extremities: normal pulses, no calf tenderness, no clubbing, no cyanosis, no edema Skin: no bruising, no jaundice, no rash Neurological: alert, No focal deficit laboratory and microbiology Laboratory Tests 03/10/24 04:53 03/08/24 05:08 Test 03/08/24 05:08 Range/Units Serum Glucose 94 74-106 mg/dL Problem List 1. Sepsis IV abx, ID Consult 2. Acute renal Failure Nephrology Consult, Monitoring 3. Elevated Liver Enzyme medication, monitoring 4. Decubitis ulcer to Coccyx Medication, monitoring 5. 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 Objective Patient is still pending [facility]. Patient is homeless. Patient is status post debridement of his decubitus ulcer. Patient will complete his antibiotics in approximately 10 more days with Rocephin and vancomycin. Plan Placement of midline catheter. Continue IV antibiotics and wound care. Pending placement at [facility] facility. Dietary Evaluation Review Comments: 1. Continue current diet regime 2. Consider Velasquez BID (180kcal, 5g pro) Expected Outcomes/Goals: 1. Pt will consume >75% estimated needs within 3-5 days Plan discussed with: Patient, Other RAY MCGOVERN NP Mar 11, 2024 15:01
[2024-03-11 17:00] LABS: INR 1.03 (0.9-1.15); Partial Thromboplastin Time 26.3 SEC (24.5-34.5); Prothrombin Time 10.9 sec (9.3-11.8)
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
[2024-03-12] VITALS (8 sets, daily range): BP systolic 94–110; BP diastolic 53–65; PULSE 77–88; RESP 16–18; TEMP 97.6–98.2; O2SAT 97–100
[2024-03-12 07:08] LABS: Basophils # (auto) 0 10 ^3/uL (0-0.2); Basophils % (auto) 0.7 % (0.0-2.0); Eosinophils # (auto) 0.3 10 ^3/uL (0-0.8); Eosinophils % (auto) 4.9 % (0.0-7.0); Hematocrit 33.5 % (41.0-53.0); Hemoglobin 11.2 g/dL (13.5-17.5); Lymphocytes # (auto) 1.9 10 ^3/uL (0.4-5.4); Lymphocytes % (auto) 28.4 % (10.0-50.0); Mean Corpuscular Hemoglobin 29.6 pg (28.0-32.0); Mean Corpuscular Hgb Conc. 33.6 g/dL (32.0-36.0); Mean Corpuscular Volume 88.2 fL (80.0-100.0); Monocytes # (auto) 0.6 10 ^3/uL (0-1.3); Monocytes % (auto) 8.6 % (0.0-12.0); Neutrophils # (auto) 3.8 10 ^3/uL (1.6-8.6); Neutrophils % (auto) 57.4 % (37.0-80.0); Nucleated Red Blood Cells % 0.1 %; Platelet Count (auto) 353 10^3/uL (140-450); Red Cell Distribution Width 15.9 % (11.8-14.3); White Blood Cell 6.7 10^3/uL (4.4-10.8)
--- NOTE | 2024-03-12 07:52 | DVHPN2 ---
Progress Note - Dictate Date Seen: Mar 12, 2024 Has the PT tested + for MRSA If YES, has PT been informed?: No Medical Necessity Reason Pt with a Central, PICC or Fol: No vital signs Vital Sign Date Time Temp Pulse Resp B/P (MAP) Pulse Ox O2 Delivery O2 Flow Rate FiO2 03/12/24 04:55 98.0 79 16 110/58 (75) 97 98.0 03/11/24 20:00 Room Air* 0 21 Total Intake and Output 03/11/24 03/11/24 03/12/24 15:00 23:00 07:00 Intake Total 726 ml 1000 ml 1750 ml Output Total 1950 ml 1350 ml Balance 726 ml -950 ml 400 ml medications Current Medications Medications Dose Ordered Sig/Jacquelyn Route Start Time Stop Time Status Last Admin Dose Admin Vancomycin HCl 0 ml @ 0 mls/hr UD IV 02/20/24 15:15 Cancel Acetaminophen 325 mg Q4HP PRN PO 02/20/24 21:45 03/07/24 20:52 325 MG Ondansetron HCl 4 mg Q4HP PRN IV 02/20/24 21:45 Docusate Sodium 100 mg BIDPRN PRN PO 02/20/24 21:45 Zinc Sulfate 220 mg DAILY PO 02/21/24 10:00 03/11/24 09:58 220 MG Ascorbic Acid 500 mg BID PO 02/20/24 22:00 03/11/24 21:38 500 MG Multivitamins 1 tab DAILY PO 02/21/24 10:00 03/11/24 09:58 1 TAB Nitroglycerin 0.4 mg Q5MINP PRN SL 02/20/24 21:45 Sodium Chloride 1,000 ml @ 100 mls/hr Q10H IV 02/21/24 19:00 03/12/24 00:56 100 MLS/HR Pantoprazole Sodium 40 mg DAILY@0600 PO 02/22/24 11:30 03/12/24 05:26 40 MG Vancomycin HCl 200 ml @ 200 mls/hr Q12H IV 02/25/24 00:00 Cancel Enteral Nutritional Formula 27.5 gm BIDWM PO 03/01/24 18:00 03/11/24 18:20 27.5 GM Vancomycin HCl 250 ml @ 200 mls/hr Q18H IV 03/09/24 20:00 03/12/24 02:00 200 MLS/HR objective General Appearance: alert, no distress HEENT: EOMI, PERRLA, normal external inspect of ears, no icterus, no nasal drainage Neck: no carotid bruit, no jugular venous distention (JVD), no lymphadenopathy Chest: normal thorax Respiratory: clear to auscultation, normal air movement Cardiovascular: regular rate and rhythm, no diastolic murmur, no jugular venous distention (JVD), no rub, no systolic murmur Abdominal: soft, no hepatomegaly, no mass, no splenomegaly, no tenderness Genitourinary: grossly normal external Musculoskeletal: no joint tenderness, no swelling Extremities: normal pulses, no calf tenderness, no clubbing, no cyanosis, no edema Skin: no bruising, no jaundice, no rash Neurological: alert, No focal deficit laboratory and microbiology Laboratory Tests 03/12/24 06:07 03/08/24 05:08 Test 03/08/24 05:08 Range/Units Serum Glucose 94 74-106 mg/dL Problem List 1. Sepsis IV abx, ID Consult 2. Acute renal Failure Nephrology Consult, Monitoring 3. Elevated Liver Enzyme medication, monitoring 4. Decubitis ulcer to Coccyx Medication, monitoring 5. Homelessness Cost Coordinator Consult Assessment/Plan Subjective: Patient is awake and alert. Objective: No change to patients status. Patient is status post debridement of the coccyx performed by Dr. Feliciano. Patient is homeless and [facility], wound care, and IV antibiotics. Antibiotic course completion in approximately nine more days. Plan: Continue current treatment, continue IV antibiotics with vancomycin and recofen, and continue daily wound care. Dietary Evaluation Review Comments: 1. Continue current diet regime 2. Consider Velasquez BID (180kcal, 5g pro) Expected Outcomes/Goals: 1. Pt will consume >75% estimated needs within 3-5 days Plan discussed with: Patient, Other RAY MCGOVERN NP Mar 12, 2024 07:52
[2024-03-12] MEDS ORDERED: VANCOMYCIN PER PHARMACY 0 MG IV SCH (09:15)
[2024-03-12] MEDS: VANCOMYCIN 1GM/250ML KIT 250 ML IV SCH (14:11)
[2024-03-13] VITALS (8 sets, daily range): BP systolic 86–102; BP diastolic 55–62; PULSE 73–88; RESP 16–19; TEMP 97.7–98.3; O2SAT 96–100
--- NOTE | 2024-03-13 14:33 | DVHPN2 ---
Progress Note - Dictate Date Seen: Mar 13, 2024 Has the PT tested + for MRSA If YES, has PT been informed?: No Medical Necessity Reason Pt with a Central, PICC or Fol: No vital signs Vital Sign Date Time Temp Pulse Resp B/P (MAP) Pulse Ox O2 Delivery O2 Flow Rate FiO2 03/13/24 12:30 97.7 88 19 96/55 (69) 99 97.7 03/13/24 08:00 Room Air* 0 21 Total Intake and Output 03/12/24 03/12/24 03/13/24 15:00 23:00 07:00 Intake Total 1000 ml 1525 ml 1525 ml Output Total 1450 ml 1900 ml Balance 1000 ml 75 ml -375 ml medications Current Medications Medications Dose Ordered Sig/Jacquelyn Route Start Time Stop Time Status Last Admin Dose Admin Vancomycin HCl 0 ml @ 0 mls/hr UD IV 02/20/24 15:15 Cancel Acetaminophen 325 mg Q4HP PRN PO 02/20/24 21:45 03/07/24 20:52 325 MG Ondansetron HCl 4 mg Q4HP PRN IV 02/20/24 21:45 Docusate Sodium 100 mg BIDPRN PRN PO 02/20/24 21:45 Zinc Sulfate 220 mg DAILY PO 02/21/24 10:00 03/13/24 08:41 220 MG Ascorbic Acid 500 mg BID PO 02/20/24 22:00 03/13/24 08:41 500 MG Multivitamins 1 tab DAILY PO 02/21/24 10:00 03/13/24 08:40 1 TAB Nitroglycerin 0.4 mg Q5MINP PRN SL 02/20/24 21:45 Sodium Chloride 1,000 ml @ 100 mls/hr Q10H IV 02/21/24 19:00 03/12/24 23:39 100 MLS/HR Pantoprazole Sodium 40 mg DAILY@0600 PO 02/22/24 11:30 03/13/24 05:30 40 MG Vancomycin HCl 200 ml @ 200 mls/hr Q12H IV 02/25/24 00:00 Cancel Enteral Nutritional Formula 27.5 gm BIDWM PO 03/01/24 18:00 03/13/24 07:49 27.5 GM Vancomycin HCl 0 ml @ 0 mls/hr UD IV 03/12/24 09:15 Vancomycin HCl 250 ml @ 250 mls/hr Q12H IV 03/12/24 14:00 03/13/24 02:05 250 MLS/HR objective General Appearance: alert, no distress HEENT: EOMI, PERRLA, normal external inspect of ears, no icterus, no nasal drainage Neck: no carotid bruit, no jugular venous distention (JVD), no lymphadenopathy Chest: normal thorax Respiratory: clear to auscultation, normal air movement Cardiovascular: regular rate and rhythm, no diastolic murmur, no jugular venous distention (JVD), no rub, no systolic murmur Abdominal: soft, no hepatomegaly, no mass, no splenomegaly, no tenderness Genitourinary: grossly normal external Musculoskeletal: no joint tenderness, no swelling Extremities: normal pulses, no calf tenderness, no clubbing, no cyanosis, no edema Skin: no bruising, no jaundice, no rash Neurological: alert, No focal deficit laboratory and microbiology Laboratory Tests 03/12/24 06:07 03/08/24 05:08 Test 03/08/24 05:08 Range/Units Serum Glucose 94 74-106 mg/dL Problem List 1. Sepsis IV abx, ID Consult 2. Acute renal Failure Nephrology Consult, Monitoring 3. Elevated Liver Enzyme medication, monitoring 4. Decubitis ulcer to Coccyx Medication, monitoring 5. Homelessness Superintendent Pressure Consult Assessment/Plan Subjective: Patient is awake and alert. Objective: No change to patient status. Patient is status post debridement of decubitus ulcer on 02/22/2024. Patient is homeless. Wounds are improving but patient is still unable to take care of himself outside of this facility. Plan: Reculture wounds. Continue antibiotics with Rocephin and vancomycin. Continue physical therapy for rehab. Dietary Evaluation Review Comments: 1. Continue current diet regime 2. Consider Velasquez BID (180kcal, 5g pro) Expected Outcomes/Goals: 1. Pt will consume >75% estimated needs within 3-5 days Plan discussed with: Patient, Other RAY MCGOVERN NP Mar 13, 2024 14:32
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
[2024-03-14] VITALS (8 sets, daily range): BP systolic 88–97; BP diastolic 54–64; PULSE 76–89; RESP 16–20; TEMP 97.4–98.7; O2SAT 96–100
--- NOTE | 2024-03-14 12:49 | DVHPN2 ---
Progress Note - Dictate Date Seen: Mar 14, 2024 Has the PT tested + for MRSA If YES, has PT been informed?: No Medical Necessity Reason Pt with a Central, PICC or Fol: No vital signs Vital Sign Date Time Temp Pulse Resp B/P (MAP) Pulse Ox O2 Delivery O2 Flow Rate FiO2 03/14/24 11:58 97.7 76 16 90/55 (67) 96 97.7 03/13/24 20:00 Room Air* 0 21 Total Intake and Output 03/13/24 03/13/24 03/14/24 15:00 23:00 07:00 Intake Total 958 ml 750 ml Output Total 1200 ml 1200 ml Balance -242 ml -450 ml medications Current Medications Medications Dose Ordered Sig/Jacquelyn Route Start Time Stop Time Status Last Admin Dose Admin Vancomycin HCl 0 ml @ 0 mls/hr UD IV 02/20/24 15:15 Cancel Acetaminophen 325 mg Q4HP PRN PO 02/20/24 21:45 03/07/24 20:52 325 MG Ondansetron HCl 4 mg Q4HP PRN IV 02/20/24 21:45 Docusate Sodium 100 mg BIDPRN PRN PO 02/20/24 21:45 Zinc Sulfate 220 mg DAILY PO 02/21/24 10:00 03/14/24 10:57 220 MG Ascorbic Acid 500 mg BID PO 02/20/24 22:00 03/14/24 10:58 500 MG Multivitamins 1 tab DAILY PO 02/21/24 10:00 03/14/24 10:57 1 TAB Nitroglycerin 0.4 mg Q5MINP PRN SL 02/20/24 21:45 Sodium Chloride 1,000 ml @ 100 mls/hr Q10H IV 02/21/24 19:00 03/13/24 21:22 100 MLS/HR Pantoprazole Sodium 40 mg DAILY@0600 PO 02/22/24 11:30 03/14/24 06:16 40 MG Vancomycin HCl 200 ml @ 200 mls/hr Q12H IV 02/25/24 00:00 Cancel Enteral Nutritional Formula 27.5 gm BIDWM PO 03/01/24 18:00 03/14/24 08:00 27.5 GM Vancomycin HCl 0 ml @ 0 mls/hr UD IV 03/12/24 09:15 Vancomycin HCl 250 ml @ 250 mls/hr Q12H IV 03/12/24 14:00 03/14/24 01:51 250 MLS/HR objective General Appearance: alert, no distress HEENT: EOMI, PERRLA, normal external inspect of ears, no icterus, no nasal drainage Neck: no carotid bruit, no jugular venous distention (JVD), no lymphadenopathy Chest: normal thorax Respiratory: clear to auscultation, normal air movement Cardiovascular: regular rate and rhythm, no diastolic murmur, no jugular venous distention (JVD), no rub, no systolic murmur Abdominal: soft, no hepatomegaly, no mass, no splenomegaly, no tenderness Genitourinary: grossly normal external Musculoskeletal: no joint tenderness, no swelling Extremities: normal pulses, no calf tenderness, no clubbing, no cyanosis, no edema Skin: no bruising, no jaundice, no rash Neurological: alert, No focal deficit laboratory and microbiology Laboratory Tests 03/12/24 06:07 03/08/24 05:08 Test 03/08/24 05:08 Range/Units Serum Glucose 94 74-106 mg/dL Problem List 1. Sepsis IV abx, ID Consult 2. Acute renal Failure Nephrology Consult, Monitoring 3. Elevated Liver Enzyme medication, monitoring 4. Decubitis ulcer to Coccyx Medication, monitoring 5. Homelessness On Site Nurse Consult 6. Stage IV decubitus ulcer Monitor, Status post debridement, continue daily wound care, IV antibiotics Assessment/Plan Subjective: Patient is awake and alert. Objective: Patient has been eating 100% of his meals and has been ambulating with physical therapy. Repeat wound cultures were done yesterday and are currently pending. Patient remains on IV antibiotics as recommended by ID. Labs have been stable. Plan: Continue current treatment. donor services technician is looking for placement [facility]. Patient is homeless. Dietary Evaluation Review Comments: 1. Continue current diet regime 2. Consider Velasquez BID (180kcal, 5g pro) Expected Outcomes/Goals: 1. Pt will consume >75% estimated needs within 3-5 days Plan discussed with: Patient, Other RAY MCGOVERN NP Mar 14, 2024 12:49
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
[2024-03-15] VITALS (7 sets, daily range): BP systolic 84–94; BP diastolic 56–62; PULSE 63–84; RESP 16–20; TEMP 97.7–98.4; O2SAT 96–98
[2024-03-15 06:19] LABS: Potassium 3.9 mmol/L (3.5-5.1)
[2024-03-15 06:25] LABS: BUN/Creatinine Ratio 26.9 (10.0-20.0)
[2024-03-15 06:27] LABS: Albumin 3.5 g/dL (3.2-4.8)
[2024-03-15 06:28] LABS: Phosphorus 4.4 mg/dL (2.4-5.1)
[2024-03-15] MEDS ORDERED: ALBUTEROL SULF 2.5 MG/0.5ML(0.5%) NEB SOLN NEB SCH (12:00)
--- NOTE | 2024-03-15 17:05 | DVHPN2 ---
Progress Note - Dictate Date Seen: Mar 15, 2024 Has the PT tested + for MRSA If YES, has PT been informed?: No Medical Necessity Reason Pt with a Central, PICC or Fol: No vital signs Vital Sign Date Time Temp Pulse Resp B/P (MAP) Pulse Ox O2 Delivery O2 Flow Rate FiO2 03/15/24 09:00 97.9 63 18 94/61 (72) 97 97.9 03/14/24 20:00 Room Air* 0 21 Total Intake and Output 03/14/24 03/14/24 03/15/24 15:00 23:00 07:00 Intake Total 650 ml 2850 ml Output Total 200 ml 1500 ml Balance 450 ml 1350 ml medications Current Medications Medications Dose Ordered Sig/Jacquelyn Route Start Time Stop Time Status Last Admin Dose Admin Vancomycin HCl 0 ml @ 0 mls/hr UD IV 02/20/24 15:15 Cancel Acetaminophen 325 mg Q4HP PRN PO 02/20/24 21:45 03/07/24 20:52 325 MG Ondansetron HCl 4 mg Q4HP PRN IV 02/20/24 21:45 Docusate Sodium 100 mg BIDPRN PRN PO 02/20/24 21:45 Zinc Sulfate 220 mg DAILY PO 02/21/24 10:00 03/15/24 11:10 220 MG Ascorbic Acid 500 mg BID PO 02/20/24 22:00 03/15/24 11:10 500 MG Multivitamins 1 tab DAILY PO 02/21/24 10:00 03/15/24 11:10 1 TAB Nitroglycerin 0.4 mg Q5MINP PRN SL 02/20/24 21:45 Sodium Chloride 1,000 ml @ 100 mls/hr Q10H IV 02/21/24 19:00 03/15/24 13:56 100 MLS/HR Pantoprazole Sodium 40 mg DAILY@0600 PO 02/22/24 11:30 03/15/24 05:57 40 MG Vancomycin HCl 200 ml @ 200 mls/hr Q12H IV 02/25/24 00:00 Cancel Enteral Nutritional Formula 27.5 gm BIDWM PO 03/01/24 18:00 03/15/24 08:00 27.5 GM Vancomycin HCl 0 ml @ 0 mls/hr UD IV 03/12/24 09:15 Vancomycin HCl 250 ml @ 250 mls/hr Q12H IV 03/12/24 14:00 03/15/24 13:56 250 MLS/HR Albuterol 2.5 mg Q4HR NEB 03/15/24 12:00 UNV objective General Appearance: alert, no distress HEENT: EOMI, PERRLA, normal external inspect of ears, no icterus, no nasal drainage Neck: no carotid bruit, no jugular venous distention (JVD), no lymphadenopathy Chest: normal thorax Respiratory: clear to auscultation, normal air movement Cardiovascular: regular rate and rhythm, no diastolic murmur, no jugular venous distention (JVD), no rub, no systolic murmur Abdominal: soft, no hepatomegaly, no mass, no splenomegaly, no tenderness Genitourinary: grossly normal external Musculoskeletal: no joint tenderness, no swelling Extremities: normal pulses, no calf tenderness, no clubbing, no cyanosis, no edema Skin: no bruising, no jaundice, no rash Neurological: alert, No focal deficit laboratory and microbiology Laboratory Tests 03/15/24 05:11 03/12/24 06:07 Test 03/15/24 05:11 Range/Units Serum Glucose 101 74-106 mg/dL Problem List 1. Sepsis IV abx, ID Consult 2. Acute renal Failure Nephrology Consult, Monitoring 3. Elevated Liver Enzyme medication, monitoring 4. Decubitis ulcer to Coccyx Medication, monitoring 5. Homelessness [place] Supervisor Consult 6. Stage IV decubitus ulcer Monitor, Status post debridement, continue daily wound care, IV antibiotics Assessment/Plan Subjective Patient is awake and alert. Objective There is no change to patient status. The patient is status post wound debridement for stage IV decubitus ulcer by Dr. Iam Feliciano on 02/22/2024. Patient is reportedly homeless. He does have some significant wounds that are currently healing to his coccyx. Patient is requiring IV antibiotics with vancomycin as recommended by Dr. Alvarado. Plan Continue current treatment. field nurse case manager is working on fdc facility placement. Repeat cultures are pending. Dietary Evaluation Review Comments: 1. Continue current diet regime 2. Consider Velasquez BID (180kcal, 5g pro) Expected Outcomes/Goals: 1. Pt will consume >75% estimated needs within 3-5 days Plan discussed with: Patient, Other RAY MCGOVERN NP Mar 15, 2024 17:05
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
[2024-03-16] VITALS (8 sets, daily range): BP systolic 90–114; BP diastolic 56–67; PULSE 70–91; RESP 16–20; TEMP 97.4–98.1; O2SAT 93–99
[2024-03-16 07:17] LABS: Basophils # (auto) 0 10 ^3/uL (0-0.2); Basophils % (auto) 0.5 % (0.0-2.0); Eosinophils # (auto) 0.3 10 ^3/uL (0-0.8); Eosinophils % (auto) 4.1 % (0.0-7.0); Hematocrit 35.6 % (41.0-53.0); Hemoglobin 11.6 g/dL (13.5-17.5); Lymphocytes # (auto) 1.8 10 ^3/uL (0.4-5.4); Lymphocytes % (auto) 28.9 % (10.0-50.0); Mean Corpuscular Hemoglobin 28.9 pg (28.0-32.0); Mean Corpuscular Hgb Conc. 32.5 g/dL (32.0-36.0); Monocytes # (auto) 0.6 10 ^3/uL (0-1.3); Neutrophils # (auto) 3.7 10 ^3/uL (1.6-8.6); Neutrophils % (auto) 57.5 % (37.0-80.0); Nucleated Red Blood Cells % 0.1 %; Platelet Count (auto) 290 10^3/uL (140-450); Red Cell Distribution Width 16.1 % (11.8-14.3); White Blood Cell 6.4 10^3/uL (4.4-10.8)
--- NOTE | 2024-03-16 13:48 | DVHPN2 ---
Progress Note - Dictate Date Seen: Mar 16, 2024 Has the PT tested + for MRSA If YES, has PT been informed?: No Medical Necessity Reason Pt with a Central, PICC or Fol: No vital signs Vital Sign Date Time Temp Pulse Resp B/P (MAP) Pulse Ox O2 Delivery O2 Flow Rate FiO2 03/16/24 13:00 97.4 70 18 98/58 (71) 99 97.4 03/16/24 08:00 Room Air* 0 21 Total Intake and Output 03/15/24 03/15/24 03/16/24 15:00 23:00 07:00 Intake Total 250 ml 1300 ml 1490 ml Output Total 1000 ml 1300 ml Balance 250 ml 300 ml 190 ml medications Current Medications Medications Dose Ordered Sig/Jacquelyn Route Start Time Stop Time Status Last Admin Dose Admin Vancomycin HCl 0 ml @ 0 mls/hr UD IV 02/20/24 15:15 Cancel Acetaminophen 325 mg Q4HP PRN PO 02/20/24 21:45 03/07/24 20:52 325 MG Ondansetron HCl 4 mg Q4HP PRN IV 02/20/24 21:45 Docusate Sodium 100 mg BIDPRN PRN PO 02/20/24 21:45 Zinc Sulfate 220 mg DAILY PO 02/21/24 10:00 03/16/24 09:38 220 MG Ascorbic Acid 500 mg BID PO 02/20/24 22:00 03/16/24 09:38 500 MG Multivitamins 1 tab DAILY PO 02/21/24 10:00 03/16/24 09:38 1 TAB Nitroglycerin 0.4 mg Q5MINP PRN SL 02/20/24 21:45 Sodium Chloride 1,000 ml @ 100 mls/hr Q10H IV 02/21/24 19:00 03/16/24 12:42 100 MLS/HR Pantoprazole Sodium 40 mg DAILY@0600 PO 02/22/24 11:30 03/16/24 06:08 40 MG Vancomycin HCl 200 ml @ 200 mls/hr Q12H IV 02/25/24 00:00 Cancel Enteral Nutritional Formula 27.5 gm BIDWM PO 03/01/24 18:00 03/16/24 08:02 27.5 GM Vancomycin HCl 0 ml @ 0 mls/hr UD IV 03/12/24 09:15 Vancomycin HCl 250 ml @ 250 mls/hr Q12H IV 03/12/24 14:00 03/16/24 13:31 250 MLS/HR Albuterol 2.5 mg Q4HR NEB 03/15/24 12:00 UNV objective General Appearance: alert, no distress HEENT: EOMI, PERRLA, normal external inspect of ears, no icterus, no nasal drainage Neck: no carotid bruit, no jugular venous distention (JVD), no lymphadenopathy Chest: normal thorax Respiratory: clear to auscultation, normal air movement Cardiovascular: regular rate and rhythm, no diastolic murmur, no jugular venous distention (JVD), no rub, no systolic murmur Abdominal: soft, no hepatomegaly, no mass, no splenomegaly, no tenderness Genitourinary: grossly normal external Musculoskeletal: no joint tenderness, no swelling Extremities: normal pulses, no calf tenderness, no clubbing, no cyanosis, no edema Skin: no bruising, no jaundice, no rash Neurological: alert, No focal deficit laboratory and microbiology Laboratory Tests 03/16/24 05:54 03/15/24 05:11 Test 03/15/24 05:11 Range/Units Serum Glucose 101 74-106 mg/dL Problem List 1. Sepsis IV abx, ID Consult 2. Acute renal Failure Nephrology Consult, Monitoring 3. Elevated Liver Enzyme medication, monitoring 4. Decubitis ulcer to Coccyx Medication, monitoring 5. Homelessness [employer] [employer]her Consult 6. Stage IV decubitus ulcer Monitor, Status post debridement, continue daily wound care, IV antibiotics Assessment/Plan Subjective Patient is awake and alert. Objective Patient is status post wound debridement on 02/22/[address] Feliciano. Patient had a stage IV decubitus ulcer. He is currently on antibiotics with vancomycin and Rocephin. Patient is homeless and needs assistance with daily wound care. rn support services working on placement at [facility] facility. Plan Continue current treatment. Continue antibiotics. rn support services working on placement for discharge. Dietary Evaluation Review Comments: 1. Continue current diet regime 2. Consider Velasquez BID (180kcal, 5g pro) Expected Outcomes/Goals: 1. Pt will consume >75% estimated needs within 3-5 days Plan discussed with: Patient, Other RAY MCGOVERN NP Mar 16, 2024 13:48
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
[2024-03-17 01:00] VITALS: BP 96/57; PULSE 89; RESP 20; TEMP 97.9; O2SAT 99
[2024-03-17 05:00] VITALS: BP 94/58; PULSE 78; RESP 18; TEMP 98; O2SAT 98
[2024-03-17 06:38] LABS: Basophils # (auto) 0 10 ^3/uL (0-0.2); Basophils % (auto) 0.6 % (0.0-2.0); Eosinophils # (auto) 0.3 10 ^3/uL (0-0.8); Eosinophils % (auto) 4.7 % (0.0-7.0); Hematocrit 34.6 % (41.0-53.0); Hemoglobin 11.5 g/dL (13.5-17.5); Lymphocytes # (auto) 1.7 10 ^3/uL (0.4-5.4); Lymphocytes % (auto) 29.9 % (10.0-50.0); Mean Corpuscular Hemoglobin 29.8 pg (28.0-32.0); Mean Corpuscular Hgb Conc. 33.4 g/dL (32.0-36.0); Mean Corpuscular Volume 89.4 fL (80.0-100.0); Monocytes # (auto) 0.5 10 ^3/uL (0-1.3); Monocytes % (auto) 8.2 % (0.0-12.0); Neutrophils # (auto) 3.3 10 ^3/uL (1.6-8.6); Neutrophils % (auto) 56.6 % (37.0-80.0); Nucleated Red Blood Cells % 0.1 %; Platelet Count (auto) 296 10^3/uL (140-450); Red Blood Cells 3.87 10^6/uL (4.5-5.90); Red Cell Distribution Width 16.6 % (11.8-14.3); White Blood Cell 5.8 10^3/uL (4.4-10.8)
[2024-03-17 08:00] VITALS: RESP 20; O2SAT 93
[2024-03-17 09:00] VITALS: BP 91/56; PULSE 83; RESP 17; TEMP 97.8; O2SAT 98
--- NOTE | 2024-03-17 12:20 | DVHPN2 ---
Progress Note - Dictate Date Seen: Mar 18, 2024 Has the PT tested + for MRSA If YES, has PT been informed?: No Medical Necessity Reason Pt with a Central, PICC or Fol: No vital signs Vital Sign Date Time Temp Pulse Resp B/P (MAP) Pulse Ox O2 Delivery O2 Flow Rate FiO2 03/17/24 09:00 97.8 83 17 91/56 (68) 98 97.8 03/17/24 08:00 Room Air* 0 21 Total Intake and Output 03/16/24 03/16/24 03/17/24 15:00 23:00 07:00 Intake Total 490 ml 1275 ml 1590 ml Output Total 1325 ml 900 ml Balance 490 ml -50 ml 690 ml medications Current Medications Medications Dose Ordered Sig/Jacquelyn Route Start Time Stop Time Status Last Admin Dose Admin Vancomycin HCl 0 ml @ 0 mls/hr UD IV 02/20/24 15:15 Cancel Acetaminophen 325 mg Q4HP PRN PO 02/20/24 21:45 03/07/24 20:52 325 MG Ondansetron HCl 4 mg Q4HP PRN IV 02/20/24 21:45 Docusate Sodium 100 mg BIDPRN PRN PO 02/20/24 21:45 Zinc Sulfate 220 mg DAILY PO 02/21/24 10:00 03/17/24 09:01 220 MG Ascorbic Acid 500 mg BID PO 02/20/24 22:00 03/17/24 09:01 500 MG Multivitamins 1 tab DAILY PO 02/21/24 10:00 03/17/24 09:01 1 TAB Nitroglycerin 0.4 mg Q5MINP PRN SL 02/20/24 21:45 Sodium Chloride 1,000 ml @ 100 mls/hr Q10H IV 02/21/24 19:00 03/17/24 09:02 100 MLS/HR Pantoprazole Sodium 40 mg DAILY@0600 PO 02/22/24 11:30 03/17/24 05:43 40 MG Vancomycin HCl 200 ml @ 200 mls/hr Q12H IV 02/25/24 00:00 Cancel Enteral Nutritional Formula 27.5 gm BIDWM PO 03/01/24 18:00 03/17/24 09:02 27.5 GM Vancomycin HCl 0 ml @ 0 mls/hr UD IV 03/12/24 09:15 Vancomycin HCl 250 ml @ 250 mls/hr Q12H IV 03/12/24 14:00 03/17/24 01:10 250 MLS/HR Albuterol 2.5 mg Q4HR NEB 03/15/24 12:00 UNV objective General Appearance: alert, no distress HEENT: EOMI, PERRLA, normal external inspect of ears, no icterus, no nasal drainage Neck: no carotid bruit, no jugular venous distention (JVD), no lymphadenopathy Chest: normal thorax Respiratory: clear to auscultation, normal air movement Cardiovascular: regular rate and rhythm, no diastolic murmur, no jugular venous distention (JVD), no rub, no systolic murmur Abdominal: soft, no hepatomegaly, no mass, no splenomegaly, no tenderness Genitourinary: grossly normal external Musculoskeletal: no joint tenderness, no swelling Extremities: normal pulses, no calf tenderness, no clubbing, no cyanosis, no edema Skin: no bruising, no jaundice, no rash Neurological: alert, No focal deficit laboratory and microbiology Laboratory Tests 03/17/24 05:41 03/15/24 05:11 Test 03/15/24 05:11 Range/Units Serum Glucose 101 74-106 mg/dL Problem List 1. Sepsis IV abx, ID Consult 2. Acute renal Failure Nephrology Consult, Monitoring 3. Elevated Liver Enzyme medication, monitoring 4. Decubitis ulcer to Coccyx Medication, monitoring 5. 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 Stage IV decubitus ulcer Monitor, Status post debridement, continue daily wound care, IV antibiotics Assessment/Plan Subjective Patient is awake and alert. Objective No change to patient's status. Patient's labs are stable. Hemoglobin is 11.5. [facility] Patient is homeless. He is status post debridement of his decubitus ulcer stage IV to his coccyx. Currently patient on vancomycin. Plan Continue current treatment. ID recommendations appreciated. Plan for discharge once bed is available. Dietary Evaluation Review Comments: 1. Continue current diet regime 2. Consider Velasquez BID (180kcal, 5g pro) Expected Outcomes/Goals: 1. Pt will consume >75% estimated needs within 3-5 days Plan discussed with: Patient, Other RAY MCGOVERN NP Mar 17, 2024 12:20
[2024-03-17 13:00] VITALS: BP 96/70; PULSE 98; RESP 18; TEMP 97.9; O2SAT 73
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
[2024-03-17 21:00] VITALS: BP 83/52; PULSE 81; RESP 20; TEMP 98.2; O2SAT 97
[2024-03-18] VITALS (7 sets, daily range): BP systolic 91–98; BP diastolic 52–63; PULSE 70–82; RESP 16–22; TEMP 98.1–98.7; O2SAT 92–100
[2024-03-18 05:50] LABS: Basophils # (auto) 0 10 ^3/uL (0-0.2); Basophils % (auto) 0.5 % (0.0-2.0); Eosinophils # (auto) 0.3 10 ^3/uL (0-0.8); Eosinophils % (auto) 4.9 % (0.0-7.0); Hematocrit 34.3 % (41.0-53.0); Hemoglobin 11.5 g/dL (13.5-17.5); Lymphocytes # (auto) 1.6 10 ^3/uL (0.4-5.4); Lymphocytes % (auto) 26.6 % (10.0-50.0); Mean Corpuscular Hemoglobin 29.5 pg (28.0-32.0); Mean Corpuscular Hgb Conc. 33.4 g/dL (32.0-36.0); Mean Corpuscular Volume 88.2 fL (80.0-100.0); Monocytes # (auto) 0.5 10 ^3/uL (0-1.3); Monocytes % (auto) 8.8 % (0.0-12.0); Neutrophils # (auto) 3.6 10 ^3/uL (1.6-8.6); Neutrophils % (auto) 59.2 % (37.0-80.0); Platelet Count (auto) 292 10^3/uL (140-450); Red Blood Cells 3.89 10^6/uL (4.5-5.90); Red Cell Distribution Width 16.3 % (11.8-14.3); White Blood Cell 6.1 10^3/uL (4.4-10.8)
--- NOTE | 2024-03-18 10:56 | DVHPN2 ---
Progress Note - Dictate Date Seen: Mar 18, 2024 Has the PT tested + for MRSA If YES, has PT been informed?: No Medical Necessity Reason Pt with a Central, PICC or Fol: No vital signs Vital Sign Date Time Temp Pulse Resp B/P (MAP) Pulse Ox O2 Delivery O2 Flow Rate FiO2 03/18/24 09:31 98.2 82 16 95/59 (71) 99 98.2 03/17/24 20:00 Room Air* 0 21 Total Intake and Output 03/17/24 03/17/24 03/18/24 14:59 22:59 06:59 Intake Total 2580 ml 750 ml Output Total 800 ml Balance 2580 ml -50 ml medications Current Medications Medications Dose Ordered Sig/Jacquelyn Route Start Time Stop Time Status Last Admin Dose Admin Vancomycin HCl 0 ml @ 0 mls/hr UD IV 02/20/24 15:15 Cancel Acetaminophen 325 mg Q4HP PRN PO 02/20/24 21:45 03/07/24 20:52 325 MG Ondansetron HCl 4 mg Q4HP PRN IV 02/20/24 21:45 Docusate Sodium 100 mg BIDPRN PRN PO 02/20/24 21:45 Zinc Sulfate 220 mg DAILY PO 02/21/24 10:00 03/18/24 10:13 220 MG Ascorbic Acid 500 mg BID PO 02/20/24 22:00 03/18/24 10:13 500 MG Multivitamins 1 tab DAILY PO 02/21/24 10:00 03/18/24 10:13 1 TAB Nitroglycerin 0.4 mg Q5MINP PRN SL 02/20/24 21:45 Pantoprazole Sodium 40 mg DAILY@0600 PO 02/22/24 11:30 03/18/24 06:19 40 MG Vancomycin HCl 200 ml @ 200 mls/hr Q12H IV 02/25/24 00:00 Cancel Enteral Nutritional Formula 27.5 gm BIDWM PO 03/01/24 18:00 03/18/24 10:14 27.5 GM Vancomycin HCl 0 ml @ 0 mls/hr UD IV 03/12/24 09:15 Vancomycin HCl 250 ml @ 250 mls/hr Q12H IV 03/12/24 14:00 03/18/24 02:18 250 MLS/HR Albuterol 2.5 mg Q4HR NEB 03/15/24 12:00 UNV objective General Appearance: alert, no distress HEENT: EOMI, PERRLA, normal external inspect of ears, no icterus, no nasal drainage Neck: no carotid bruit, no jugular venous distention (JVD), no lymphadenopathy Chest: normal thorax Respiratory: clear to auscultation, normal air movement Cardiovascular: regular rate and rhythm, no diastolic murmur, no jugular venous distention (JVD), no rub, no systolic murmur Abdominal: soft, no hepatomegaly, no mass, no splenomegaly, no tenderness Genitourinary: grossly normal external Musculoskeletal: no joint tenderness, no swelling Extremities: normal pulses, no calf tenderness, no clubbing, no cyanosis, no edema Skin: no bruising, no jaundice, no rash Neurological: alert, No focal deficit laboratory and microbiology Laboratory Tests 03/18/24 05:30 03/15/24 05:11 Test 03/15/24 05:11 Range/Units Serum Glucose 101 74-106 mg/dL Problem List 1. Sepsis IV abx, ID Consult 2. Acute renal Failure Nephrology Consult, Monitoring 3. Elevated Liver Enzyme medication, monitoring 4. Decubitis ulcer to Coccyx Medication, monitoring 5. 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 Stage IV decubitus ulcer Monitor, Status post debridement, continue daily wound care, IV antibiotics Assessment/Plan Subjective: Patient is awake and alert. Objective: No change to patients status. Patient is status post wound debridement of a stage IV decubitus ulcer to the coccyx on 02/22/2024. Patient remains on vancomycin for antibiotics. He is homeless and unable to attend to his wounds independently. Pending placement at a [facility] facility for rehab. Plan: Continue current treatment, continue physical therapy, continue IV antibiotics, and maintain daily wound care. Dietary Evaluation Review Comments: 1. Continue current diet regime 2. Consider Velasquez BID (180kcal, 5g pro) Expected Outcomes/Goals: 1. Pt will consume >75% estimated needs within 3-5 days Plan discussed with: Patient, Other RAY MCGOVERN NP Mar 18, 2024 10:56
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
[2024-03-19] VITALS (7 sets, daily range): BP systolic 86–94; BP diastolic 46–63; PULSE 74–86; RESP 16–18; TEMP 97.9–98.3; O2SAT 93–98
--- NOTE | 2024-03-19 09:55 | DVHPN2 ---
Progress Note - Dictate Date Seen: Mar 19, 2024 Has the PT tested + for MRSA If YES, has PT been informed?: No Medical Necessity Reason Pt with a Central, PICC or Fol: No vital signs Vital Sign Date Time Temp Pulse Resp B/P (MAP) Pulse Ox O2 Delivery O2 Flow Rate FiO2 03/19/24 08:51 98.0 84 18 92/56 (68) 93 98.0 03/19/24 08:00 Room Air* 0 21 Total Intake and Output 03/18/24 03/18/24 03/19/24 15:00 23:00 07:00 Intake Total 1048 ml 2385 ml 900 ml Output Total 2800 ml 1200 ml Balance 1048 ml -415 ml -300 ml medications Current Medications Medications Dose Ordered Sig/Jacquelyn Route Start Time Stop Time Status Last Admin Dose Admin Vancomycin HCl 0 ml @ 0 mls/hr UD IV 02/20/24 15:15 Cancel Acetaminophen 325 mg Q4HP PRN PO 02/20/24 21:45 03/07/24 20:52 325 MG Ondansetron HCl 4 mg Q4HP PRN IV 02/20/24 21:45 Docusate Sodium 100 mg BIDPRN PRN PO 02/20/24 21:45 Zinc Sulfate 220 mg DAILY PO 02/21/24 10:00 03/18/24 10:13 220 MG Ascorbic Acid 500 mg BID PO 02/20/24 22:00 03/18/24 22:49 500 MG Multivitamins 1 tab DAILY PO 02/21/24 10:00 03/18/24 10:13 1 TAB Nitroglycerin 0.4 mg Q5MINP PRN SL 02/20/24 21:45 Pantoprazole Sodium 40 mg DAILY@0600 PO 02/22/24 11:30 03/19/24 06:52 40 MG Vancomycin HCl 200 ml @ 200 mls/hr Q12H IV 02/25/24 00:00 Cancel Enteral Nutritional Formula 27.5 gm BIDWM PO 03/01/24 18:00 03/18/24 10:14 27.5 GM Vancomycin HCl 0 ml @ 0 mls/hr UD IV 03/12/24 09:15 Vancomycin HCl 250 ml @ 250 mls/hr Q12H IV 03/12/24 14:00 03/19/24 02:21 250 MLS/HR Albuterol 2.5 mg Q4HR NEB 03/15/24 12:00 UNV objective General Appearance: alert, no distress HEENT: EOMI, PERRLA, normal external inspect of ears, no icterus, no nasal drainage Neck: no carotid bruit, no jugular venous distention (JVD), no lymphadenopathy Chest: normal thorax Respiratory: clear to auscultation, normal air movement Cardiovascular: regular rate and rhythm, no diastolic murmur, no jugular venous distention (JVD), no rub, no systolic murmur Abdominal: soft, no hepatomegaly, no mass, no splenomegaly, no tenderness Genitourinary: grossly normal external Musculoskeletal: no joint tenderness, no swelling Extremities: normal pulses, no calf tenderness, no clubbing, no cyanosis, no edema Skin: no bruising, no jaundice, no rash Neurological: alert, No focal deficit laboratory and microbiology Laboratory Tests 03/18/24 05:30 03/15/24 05:11 Test 03/15/24 05:11 Range/Units Serum Glucose 101 74-106 mg/dL Problem List 1. Sepsis IV abx, ID Consult 2. Acute renal Failure Nephrology Consult, Monitoring 3. Elevated Liver Enzyme medication, monitoring 4. Decubitis ulcer to Coccyx Medication, monitoring 5. Homelessness Wood Coater Consult 6. Stage IV decubitus ulcer Monitor, Status post debridement, continue daily wound care, IV antibiotics Assessment/Plan Subjective: Patient is awake and alert. Objective: Patient was admitted on February 20, 2024 for nonhealing decubitus ulcer stage IV. Patient was found to be septic. Infectious disease was consulted. Patient is status post debridement on 02/22/[address] Iam Feliciano. Per infectious disease patient will need IV antibiotics for 1 week. Antibiotics have been narrowed to vancomycin. Plan: Continue current treatment. Patient is homeless mental health social worker is looking for a shelter facility. Patient will continue physical therapy and daily wound care. Dietary Evaluation Review Comments: 1. Continue current diet regime 2. Consider Velasquez BID (180kcal, 5g pro) Expected Outcomes/Goals: 1. Pt will consume >75% estimated needs within 3-5 days Plan discussed with: Patient, Other RAY MCGOVERN NP Mar 19, 2024 09:55
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
[2024-03-20] VITALS (8 sets, daily range): BP systolic 94–128; BP diastolic 57–76; PULSE 72–86; RESP 16–20; TEMP 97.5–98.2; O2SAT 95–100
--- NOTE | 2024-03-20 12:56 | DVHPN2 ---
Progress Note - Dictate Date Seen: Mar 20, 2024 Has the PT tested + for MRSA If YES, has PT been informed?: No Medical Necessity Reason Pt with a Central, PICC or Fol: No vital signs Vital Sign Date Time Temp Pulse Resp B/P (MAP) Pulse Ox O2 Delivery O2 Flow Rate FiO2 03/20/24 12:35 98.0 83 17 95/57 (70) 99 98.0 03/20/24 08:10 Room Air* 0 21 Total Intake and Output 03/19/24 03/19/24 03/20/24 15:00 23:00 07:00 Intake Total 600 ml 2160 ml 240 ml Output Total 1501 ml 400 ml Balance 600 ml 659 ml -160 ml medications Current Medications Medications Dose Ordered Sig/Jacquelyn Route Start Time Stop Time Status Last Admin Dose Admin Vancomycin HCl 0 ml @ 0 mls/hr UD IV 02/20/24 15:15 Cancel Acetaminophen 325 mg Q4HP PRN PO 02/20/24 21:45 03/07/24 20:52 325 MG Ondansetron HCl 4 mg Q4HP PRN IV 02/20/24 21:45 Docusate Sodium 100 mg BIDPRN PRN PO 02/20/24 21:45 Zinc Sulfate 220 mg DAILY PO 02/21/24 10:00 03/20/24 11:28 220 MG Ascorbic Acid 500 mg BID PO 02/20/24 22:00 03/20/24 11:28 500 MG Multivitamins 1 tab DAILY PO 02/21/24 10:00 03/20/24 11:28 1 TAB Nitroglycerin 0.4 mg Q5MINP PRN SL 02/20/24 21:45 Pantoprazole Sodium 40 mg DAILY@0600 PO 02/22/24 11:30 03/20/24 06:10 40 MG Vancomycin HCl 200 ml @ 200 mls/hr Q12H IV 02/25/24 00:00 Cancel Enteral Nutritional Formula 27.5 gm BIDWM PO 03/01/24 18:00 03/20/24 08:00 27.5 GM Vancomycin HCl 0 ml @ 0 mls/hr UD IV 03/12/24 09:15 Vancomycin HCl 250 ml @ 250 mls/hr Q12H IV 03/12/24 14:00 03/20/24 02:12 250 MLS/HR Albuterol 2.5 mg Q4HR NEB 03/15/24 12:00 UNV objective General Appearance: alert, no distress HEENT: EOMI, PERRLA, normal external inspect of ears, no icterus, no nasal drainage Neck: no carotid bruit, no jugular venous distention (JVD), no lymphadenopathy Chest: normal thorax Respiratory: clear to auscultation, normal air movement Cardiovascular: regular rate and rhythm, no diastolic murmur, no jugular venous distention (JVD), no rub, no systolic murmur Abdominal: soft, no hepatomegaly, no mass, no splenomegaly, no tenderness Genitourinary: grossly normal external Musculoskeletal: no joint tenderness, no swelling Extremities: normal pulses, no calf tenderness, no clubbing, no cyanosis, no edema Skin: no bruising, no jaundice, no rash Neurological: alert, No focal deficit laboratory and microbiology Laboratory Tests 03/18/24 05:30 03/15/24 05:11 Test 03/15/24 05:11 Range/Units Serum Glucose 101 74-106 mg/dL Problem List 1. Sepsis IV abx, ID Consult 2. Acute renal Failure Nephrology Consult, Monitoring 3. Elevated Liver Enzyme medication, monitoring 4. Decubitis ulcer to Coccyx Medication, monitoring 5. Homelessness Equipment Maintenance Engineer Consult 6. Stage IV decubitus ulcer Monitor, Status post debridement, continue daily wound care, IV antibiotics Assessment/Plan Subjective: Patient is awake and alert. Objective: Patient is status post wound debridement on 03/23/2024. Patient is homeless and currently on IV Vancomycin, which will discontinue tomorrow. He will transition to oral antibiotics with Bactrim. Patient states he is willing to go home and has a friend in [place] willing to take him in. He believes he can manage his wound care and access some supplies. Plan: Discuss plan of care with pediatric social worker to determine if patient still qualifies for [facility] facility placement. Send antibiotics to bedside for patient. Possible discharge plan for tomorrow. Dietary Evaluation Review Comments: 1. Continue current diet regime 2. Consider Velasquez BID (180kcal, 5g pro) Expected Outcomes/Goals: 1. Pt will consume >75% estimated needs within 3-5 days Plan discussed with: Patient, Other RAY MCGOVERN NP Mar 20, 2024 12:56
[2024-03-21 01:00] VITALS: BP 89/56; PULSE 79; RESP 18; TEMP 98.5; O2SAT 98
[2024-03-21 05:00] VITALS: BP 92/62; PULSE 77; RESP 17; TEMP 97.9; O2SAT 97
[2024-03-21 08:13] VITALS: RESP 16; O2SAT 97
[2024-03-21 08:59] VITALS: BP 101/63; PULSE 74; RESP 18; TEMP 97.4; O2SAT 100
[2024-03-21] MEDS ORDERED: BACDST PO (11:26)
[2024-03-21] MEDS ORDERED: AUG875T PO (11:26)
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
[2024-03-21 13:00] VITALS: BP 93/63; PULSE 75; RESP 18; TEMP 97.7; O2SAT 97
[2024-03-21 14:54] VITALS: TEMP 36.5
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
== END 2024-03-21 15:45 | disposition home or self-care (01) | DRG 710 ==
LOC: ER 13:33 → TELE 21:44 → TELE-WESTW 02-21 18:42 → TELE-CENTR 02-29 20:26 → CENTRAL 03-14 09:03
PROVIDERS: ADMIT Internal Medicine; ATTEND Nurse Practitioner
PROC: 0J990ZZ Drainage of Buttock Subcutaneous Tissue and Fascia, Open Approach (ICD-10-PCS; principal; 2024-02-22 16:30)
DX: A41.9 Sepsis, unspecified organism (principal); N17.0 Acute kidney failure with tubular necrosis; K65.1 Peritoneal abscess; L89.154 Pressure ulcer of sacral region, stage 4; I13.0 Hypertensive heart and chronic kidney disease with heart failure and stage 1 through stage 4 chronic kidney disease, or unspecified chronic kidney disease; L03.115 Cellulitis of right lower limb; E11.22 Type 2 diabetes mellitus with diabetic chronic kidney disease; I50.9 Heart failure, unspecified; L02.31 Cutaneous abscess of buttock; E87.6 Hypokalemia; N18.30 Chronic kidney disease, stage 3 unspecified; F19.10 Other psychoactive substance abuse, uncomplicated; E78.5 Hyperlipidemia, unspecified; R65.20 Severe sepsis without septic shock; S31.819A Unspecified open wound of right buttock, initial encounter; F15.90 Other stimulant use, unspecified, uncomplicated; F17.210 Nicotine dependence, cigarettes, uncomplicated; K21.9 Gastro-esophageal reflux disease without esophagitis; Z59.00 Homelessness unspecified; Z79.899 Other long term (current) drug therapy; X58.XXXA Exposure to other specified factors, initial encounter; Y93.89 Activity, other specified; Y92.89 Other specified places as the place of occurrence of the external cause; Y99.8 Other external cause status
CPT/HCPCS: 36415; 71045; 74176; 76775; 80048; 80053; 80069; 80074; 80202; 80307; 81001; 82306; 82565; 82570; 83036; 83605; 83735; 83880; 83970; 84100; 84156; 84300; 85007; 85025; 85027; 85610; 85652; 85730; 86141; 86592; 86703; 86803; 86850; 86900; 86901; 87040; 87077; 87081; 87186; 87205; 93005; 93306; 97116; 97163; 97530; 99291; G0378; J0330; J2003; J2250; J2405; J2543; J2704; J3490